=== PATIENT | male | born 1970 | race Caucasian/White ===

== ENCOUNTER 2020-08-05 10:53 | Outpatient (CLI) | payer BC, SELFPAY ==
--- NOTE | ~2020-08-05 | XR_ITS ---
EXAMINATION: XR ribs BI 3V w CXR 2V EXAM DATE: 08/05/2020 11:17 INDICATION: R07.81 - Pleurodynia; chest pain on breathing, lower rib pain. TECHNIQUE: Frontal projection of the upper left ribs, frontal projection of the lower left ribs, obli que projection of the left ribs. Frontal projection of the upper right ribs, frontal projection of t he lower right ribs, oblique projection of the right ribs, frontal chest x-ray(s) for interpretation. Comparison is made to prior examination from 08/07/2015. FINDINGS: There are old right 5th-10th rib fractures identified posterolaterally. There are old left 6th-9th rib fractures identified laterally. There are no acute fractures identified. No confluent con solidation, pneumothorax or pleural effusion suspected. Cardiomediastinal silhouette is normal. Mild thoracic spondylosis. IMPRESSION: Old bilateral rib fractures. No acute findings. Reviewed, dictated and finalized at location A. [employer] PATH[employer]IST
== END 2020-08-05 10:54 | disposition home or self-care (01) ==
PROVIDERS: PCP Family Medicine; Visit Provider Nurse Practitioner Family
DX: R07.81 Pleurodynia (principal); R07.1 Chest pain on breathing
CPT/HCPCS: 71046; 71110

== ENCOUNTER → 2021-10-20 00:23 | Outpatient (CLI) | payer BC, SELFPAY ==
[2021-10-20 11:15] LABS: SARS-CoV-2 RNA PCR Negative
== END ==
PROVIDERS: PCP Family Medicine; Visit Provider Internal Medicine Gastroenterology
DX: Z01.812 Encounter for preprocedural laboratory examination (principal); Z20.822 Contact with and (suspected) exposure to COVID-19
CPT/HCPCS: C9803; U0003; U0005

== ENCOUNTER 2021-10-23 01:12 | Day surgery (SDC) | payer BC, SELFPAY ==
[2021-10-12 14:38] VITALS: BMI 39.9
--- NOTE | 2021-10-23 07:26 | PM.HPGS ---
History of Present Illness History of Present Illness Consent: Risks, benefits, and alternatives have been discussed and questions answered. Patient agrees to proceed with procedure. Chief complaint: positive cologuard Narrative: Minh Yeung is a 50 year old male Recently performed Cologuard test for screening. It was positive. He therefore is referred now for colonoscopy. He has not had any particular symptoms such as blood in stools or change in bowel habits . Review of Systems Review of Systems: All systems reviewed & are unremarkable except as noted in HPI and below PMFSH Past Medical History Medical History Abnormal stool test Biceps muscle tear BMI 39.0-39.9,adult Hematochezia Morbid (severe) obesity due to excess calories Surgical History Surgical History History of coronary artery stent placement History of shoulder surgery Family History Family History Father Family history of premature coronary heart disease Mother Hypertension Family history of diabetes mellitus in first degree relative Sibling Family history of diabetes mellitus in first degree relative Grandparent Family history of coronary artery disease Social History Social History Smoking packs per day: 2 Smoking cigarettes per day: 40.0 Years smoked: 30 Smoking pack-years: 60.00 Tobacco type: cigarettes Second hand tobacco smoke exposure: Yes Alcohol intake: current Drinks per week: 40 Alcohol use details: Beer Substance use: never Substance use type: does not use Living arrangements: alone Additional occupation/education comments: [employer] Gender identity (if verbalized by the patient): Male Meds Home Medications and Allergies Home Medications Medication Instructions Recorded Confirmed Type metformin 1,000 mg tablet 1,000 mg PO BID #180 tablet 08/18/20 10/23/21 Rx losartan 50 mg-hydrochlorothiazide 1 tablet PO DAILY #90 tablet 01/20/21 10/23/21 Rx 12.5 mg tablet umeclidinium 62.5 mcg-vilanterol 1 inh INHALATION Q24H #90 each 02/27/21 10/23/21 Rx 25 mcg/actuation powdr for inhalation metoprolol succinate 50 mg 50 mg PO DAILY #90 tablet 05/26/21 10/23/21 Rx tablet,extended release 24 hr metronidazole 0.75 % topical cream 1 applic TOPICAL QHS #45 g 08/06/21 10/23/21 Rx sildenafil 100 mg tablet 100 mg PO DAILY PRN #8 tablet 08/24/21 10/23/21 Rx alprazolam 0.5 mg PO TID PRN 10/12/21 10/23/21 History aspirin 81 mg PO DAILY 10/12/21 10/23/21 History omeprazole [Prilosec] 20 mg PO DAILY 10/12/21 10/23/21 History rosuvastatin 20 mg tablet 20 mg PO DAILY #90 tablet 10/12/21 10/23/21 Rx Allergies Allergy/AdvReac Type Severity Reaction Status Date / Time Penicillins Allergy Unknown Rash Verified 10/23/21 09:58 Exam Const: General: alert Orientation/consciousness: patient oriented x3 Resp: Auscultation: clear to auscultation bilaterally Cardio: Rhythm: regular rhythm GI: GI Palp: Yes Soft to palpation and No Tenderness to palpation present (GI) Neuro: General: patient oriented x3 Assessment and Plan Assessment and plan (1) Colon cancer screening: Code(s): Z12.11 - Encounter for screening for malignant neoplasm of colon Status: Acute Assessment and Plan: Colonoscopy with possible biopsy or polypectomy or cautery or injection of substances.
[2021-10-23 09:59] VITALS: BP 134/86; PULSE 95; RESP 19; TEMP 36.2; O2SAT 97; BMI 39.2
[2021-10-23] MEDS: LACTATED RINGERS 1,000 ML 150 ML IV CONT (10:01)
[2021-10-23 10:08] LABS: Glucose Point of Care 173 mg/dl (65-105)
--- NOTE | 2021-10-23 10:28 | WPDANESEPPF ---
Anes - Initial Pre Proc Eval Procedure: Operation Date: 10/23/21 11:00 Proposed Procedures p Colonoscopy - Abdelrahman Justice MD Date/Time: 10/23/21 10:28 Surgeon: Abdelrahman Justice MD Pre Op Diagnosis: positive cologuard Patient Data Age: 50 Gender: M Height: 1.91 m Weight: 142.2 kg Last Vital Signs Temp 36.2 C L 10/23/21 09:59 Pulse 95 10/23/21 09:59 Resp 19 10/23/21 09:59 BP 134/86 10/23/21 09:59 Pulse Ox 97 10/23/21 09:59 Allergies Allergy/AdvReac Type Severity Reaction Status Date / Time Penicillins Allergy Unknown Rash Verified 10/23/21 09:58 Home Medications Medication Instructions Recorded Confirmed Type metformin 1,000 mg tablet 1,000 mg PO BID #180 tablet 08/18/20 10/23/21 Rx losartan 50 mg-hydrochlorothiazide 1 tablet PO DAILY #90 tablet 01/20/21 10/23/21 Rx 12.5 mg tablet umeclidinium 62.5 mcg-vilanterol 1 inh INHALATION Q24H #90 each 02/27/21 10/23/21 Rx 25 mcg/actuation powdr for inhalation metoprolol succinate 50 mg 50 mg PO DAILY #90 tablet 05/26/21 10/23/21 Rx tablet,extended release 24 hr metronidazole 0.75 % topical cream 1 applic TOPICAL QHS #45 g 08/06/21 10/23/21 Rx sildenafil 100 mg tablet 100 mg PO DAILY PRN #8 tablet 08/24/21 10/23/21 Rx alprazolam 0.5 mg PO TID PRN 10/12/21 10/23/21 History aspirin 81 mg PO DAILY 10/12/21 10/23/21 History omeprazole [Prilosec] 20 mg PO DAILY 10/12/21 10/23/21 History rosuvastatin 20 mg tablet 20 mg PO DAILY #90 tablet 10/12/21 10/23/21 Rx Laboratory Tests 10/23/21 10:06 POC Capillary Glucose 173 mg/dl H mg/dl (65-105) Patient hx anesthesia problems: none Family hx anesthesia problems: none Results Review: All pre-operative results and documents have been reviewed as part of the pre-operative evaluation. [facility] Past Medical History Medical History Abnormal stool test Biceps muscle tear BMI 39.0-39.9,adult Hematochezia Morbid (severe) obesity due to excess calories Surgical History Surgical History (Updated 10/23/21 @ 10:32 by Hubert Hylton MD) History of coronary artery stent placement History of shoulder surgery Family History Family History Father Family history of premature coronary heart disease Mother Hypertension Family history of diabetes mellitus in first degree relative Sibling Family history of diabetes mellitus in first degree relative Grandparent Family history of coronary artery disease Social History Social History Smoking packs per day: 2 Smoking cigarettes per day: 40.0 Years smoked: 30 Smoking pack-years: 60.00 Tobacco type: cigarettes Second hand tobacco smoke exposure: Yes Alcohol intake: current Drinks per week: 40 Alcohol use details: Beer Substance use: never Substance use type: does not use Living arrangements: alone Additional occupation/education comments: [employer] Gender identity (if verbalized by the patient): Male Anes - Eval Final PreProcedure Day of Procedure 10/23/21 10:28 Patient weight: morbidly obese Heart: regular rate and rhythm Lungs: clear to auscultation Airway: Mallampati scale class II Neurological: alert and oriented Last oral intake: >/= 8 hours ASA classification: III Emergent: no Anesthetic plan: proceed Anesthesia type and monitoring: general GIVS and standard monitoring Results Review: All pre-operative results and documents have been reviewed as part of the pre-operative evaluation. Informed Consent: The patient's anesthetic plan and its attendant risks and benefits were discussed with the patient/family/POA. Questions were solicited and answers provided to the satisfaction of the patient/family/POA.
[2021-10-23 11:54] VITALS: BP 110/74; PULSE 89; RESP 32; O2SAT 93
[2021-10-23 12:04] VITALS: BP 113/70; PULSE 87; RESP 24; O2SAT 96
[2021-10-23 12:14] VITALS: BP 116/72; PULSE 95; RESP 18; O2SAT 97
== END 2021-10-23 12:18 | disposition home or self-care (01) ==
PROVIDERS: PCP Family Medicine; Visit Provider Internal Medicine Gastroenterology
PROC: 0DJD8ZZ Inspection of Lower Intestinal Tract, Via Natural or Artificial Opening Endoscopic (ICD-10-PCS; CPT 45378; principal; 2021-10-23 11:00)
DX: Z12.11 Encounter for screening for malignant neoplasm of colon (principal); D12.8 Benign neoplasm of rectum; K63.5 Polyp of colon; K57.30 Diverticulosis of large intestine without perforation or abscess without bleeding; R19.5 Other fecal abnormalities; F17.210 Nicotine dependence, cigarettes, uncomplicated; Z95.5 Presence of coronary angioplasty implant and graft; Z79.899 Other long term (current) drug therapy
CPT/HCPCS: 45385; 45381; 82948; 88305; J2001; J2704; J7120

== ENCOUNTER 2023-10-31 15:15 | Outpatient (CLI) | payer BC, SELFPAY ==
--- NOTE | ~2023-10-31 | XR_ITS ---
EXAMINATION: XR lumbar spine 2-3V DATE: 10/31/2023 15:34 INDICATION: Other intervertebral disc degeneration, lumbar region. TECHNIQUE: 3 views of lumbar spine were obtained. COMPARISON: None. FINDINGS: There is 12 degrees levoscoliosis of lumbar spine. There is mild chronic anterior wedging o f T12 and L1 vertebral bodies. There are endplate osteophytes at all levels. There is mildly decrease d disc height at T12-L1, L1-L2, L2-L3, and L3-L4 and moderately decreased disc height at L4-L5. There is multilevel facet joint osteoarthritis. IMPRESSION: 1. Moderate lumbar spondylosis. 2. Lumbar levoscoliosis. Reviewed, dictated and finalized at location E.
--- NOTE | ~2023-10-31 | XR_ITS ---
EXAMINATION: XR hip RT 2V w AP pelvis DATE: 10/31/2023 15:34 INDICATION: Right hip pain. TECHNIQUE: An anteroposterior view of the pelvis and 2 views of right hip were obtained. COMPARISON: None. FINDINGS: There is lumbar levoscoliosis and severe spondylosis. No fracture. There is mild osteoarthr itis of the hips. IMPRESSION: 1. Mild osteoarthritis of the hips. Reviewed, dictated and finalized at location E.
== END 2023-10-31 15:16 | disposition home or self-care (01) ==
LOC: ANHIMG 15:15
PROVIDERS: PCP Family Medicine; Visit Provider Nurse Practitioner Family
DX: M51.36 Other intervertebral disc degeneration, lumbar region (principal); M16.11 Unilateral primary osteoarthritis, right hip; M47.896 Other spondylosis, lumbar region
CPT/HCPCS: 72100; 73502

== ENCOUNTER 2023-12-01 09:45 | Outpatient (CLI) | payer BC, SELFPAY ==
--- NOTE | ~2023-12-01 | US_ITS ---
EXAMINATION: US carotid duplex BI DATE: 12/01/2023 10:06 INDICATION: Dizziness and giddiness. TECHNIQUE: Grayscale, color Doppler, and pulsed Doppler images of the cervical carotid arteries were obtained. The degree of vessel stenosis is placed in one of the following categories: normal, <50%, 5 0-69%, >=70% but less than near-occlusion, near-occlusion, or total occlusion. Note that percent sten osis relative to normal distal artery lumen diameter is indirectly measured from velocity measurement s as described by Owen, et al. Radiology 2003; 229:340-346. COMPARISON: None. FINDINGS: RIGHT: The right common carotid artery (CCA) peak systolic velocity (PSV) is 79 cm/s. The right internal car otid artery (ICA) PSV is 181 cm/s. The right ICA end-diastolic velocity (EDV) is 68 cm/s. The right I CA/CCA PSV ratio is 2.3. Grayscale and color Doppler images yield an estimate of >=50% diameter reduc tion from plaque in the ICA. There is antegrade flow in the right vertebral artery. LEFT: The left CCA PSV is 89 cm/s. The left ICA PSV is 101 cm/s. The left ICA EDV is 36 cm/s. The left ICA/ CCA PSV ratio is 1.1. Grayscale and color Doppler images yield an estimate of <50% diameter reduction from plaque in the ICA. There is antegrade flow in the left vertebral artery. IMPRESSION: 1. 50-69% stenosis in the right internal carotid artery. 2. <50% stenosis in the left internal carotid artery. Reviewed, dictated and finalized at location E.
== END 2023-12-01 09:46 ==
PROVIDERS: PCP Family Medicine; Visit Provider Nurse Practitioner Family
DX: R42 Dizziness and giddiness (principal); I65.23 Occlusion and stenosis of bilateral carotid arteries
CPT/HCPCS: 93880

== ENCOUNTER 2024-10-29 09:00 | Outpatient (CLI) | payer BC, SELFPAY ==
--- NOTE | ~2024-10-29 | XR_ITS ---
Cervical Spine: AP, lateral, open-mouth views Clinical History: Pain Findings: The normal lordotic curve is maintained. No fracture or subluxation seen. There is mild deg enerative change at C5-C6. Pre-vertebral soft tissues are unremarkable. Impression: Mild degenerative spondylosis. Reviewed, dictated and finalized at [facility]. Impression: Mild degenerative spondylosis.
--- NOTE | ~2024-10-29 | XR_ITS ---
Left ankle Technique: AP, oblique, and lateral views were obtained. Clinical History: Pain Findings: No acute fracture or dislocation is seen. Probable chronic avulsion fracture fragment at th e tip of the medial malleolus. Osseous alignment is anatomic. Ankle mortise and other visualized join t spaces are preserved. Soft tissues are otherwise unremarkable. Impression: No acute abnormality. Reviewed, dictated and finalized at location . Impression: No acute abnormality.
--- NOTE | ~2024-10-29 | XR_ITS ---
Right ankle Technique: AP, oblique, and lateral views were obtained. Clinical History: Pain Findings: No acute fracture or dislocation is seen. Osseous alignment is anatomic. Ankle mortise and other visualized joint spaces are preserved. There is heterotopic ossification or possibly enchondrom a at the distal tibiofibular syndesmosis region.. Impression: No acute abnormality. Heterotopic ossification or possibly enchondroma at the distal tibiofibular syndesmosis region. Reviewed, dictated and finalized at location . Impression: No acute abnormality. Heterotopic ossification or possibly enchondroma at the distal tibiofibular syn desmosis region.
--- OUTSIDE RECORDS SUMMARY | 2024-10-29 09:34 | XMS_ITS | Clinical Summary ---
Author Organization [facility] Address [address] [place] [address] Phone Care Team Providers Care Demonstrator Sales Name Role Phone Vernon Paula MD Primary Care Provider [phone] Social History Tobacco Use Types Packs/Day Years Used Date Smoking Tobacco: Never Assessed Sex and Gender Information Value Date Recorded Sex Assigned at Not on file Legal Sex Male 12:22 AM CDT Gender Identity Not on file Sexual Orientation Not on file Plan of Treatment Health Maintenance Due Date Last Done Comments Hepatitis C Virus (HCV) Screening 1968 TdaP Immunization 1968 Hepatitis B Immunization (1 of 3 - 19+ 3-dose series) 11/07/1987 Pneumococcal Immunization (5 0+ years) (1 of 2 - PCV) 11/07/1987 Colonoscopy 2013 Colorectal Cancer Screening 2013 Cologuard 2018 Immunochemical Fecal Occult Blood 2018 Zoster Immunization (1 of 2) 2018 PSA Discussion 11/07/2023 Influenza Immunization (#1) 2024 SARS-COV-2 Immunization ( season) 2024 Respiratory Syncytial Virus (RSV) Immunization (Adult) (1 - 1-dose 75+ series) 11/07/2043 Meningococcal Immunization (ACWY) Aged Out No longer eligible based on patient's age to complete this topic Rotavirus Immunization Aged Out No lo nger eligible based on patient's age to complete this topic Insurance [employer] Care Teams Demonstrator Sales Relationship Specialty Start Date End Date Vernon Paula MD [address] [place] [address] PCP - General Family Medicine 01/03/24
--- OUTSIDE RECORDS SUMMARY | 2024-10-29 09:35 | XMS_ITS ---
ADRIANA LewisDEVINE) - 09/27/2024 3:39 PM CDT Baseline prior to heparin initiation Timbo Norton MD LAB BLOOD ORDERABLES Final Resu lt Performing Organization Address City/[facility]/ZIP Co de Phone Number ADRIANA CASTANEDAN) 1 [facility] [place] [address] * Protime-INR (09/27/2024 3:25 PM CDT) PT 11.8 9.7 - 13.0 sec IRENEMICHELLE JOAQUIN (DEVINE) INR 1.09 0.90 - 1.20 ADRIANA JOAQUIN (DEVINE) Comment: Interpretive data Oral anticoagulant therapeutic ranges: Venous thromboembolism prophylaxis or treatment: 2.0-3.0 CARDIOLOGY Standard range: 2.0-3.0 High-intensity range: 2.5-3.5 Refer to indication-specific guidelines for appropriate target ranges for prosthetic heart valve replacement. Current interpretive data was last revised on 2019. Blood 09/27/2024 3:25 PM CDT 09/27/2024 3:27 PM CDT Narrative ADRIANA LewisDEVINE) - 09/27/2024 3:39 PM CDT Baseline prior to heparin initiation Timbo Norton MD LAB BLOOD ORDERABLES Final Resu lt Performing Organization Address [facility] Co de Phone Number ADRIANA LewisDEVINE) 1 [facility] [place] [address] * LEFT HEART CATHETERIZATION WITH CORONARY ANGIOGRAPHY AND WITH AND WITHOUT LEFT VENTRICULOGRAM (09/27/2024 2:18 PM CDT) Anatomical Region Laterality Modality X-Ray Angiograph y 09/27/2024 Narrative 09/28/2024 9:32 AM CDT [facility] Job ID: [id number] [facility] Document ID: [id number] Dictated date/time: [id number] CARDIAC CATHETERIZATION REPORT A 53-year-old, history of coronary artery disease, had stenting of the left anterior descending in about 2004 and then stenting of the mid circumflex in 2014. He was lost for follow-up. He now presents with recurrent chest pain consistent with unstable angina. Cardiac enzymes were negative. He was referred for catheterization. INDICATION FOR PROCEDURE Coronary artery disease with unstable angina PROCEDURES PERFORMED: left heart catheterization, selective coronary angiography, left ventriculography. TECHNICAL SUMMARY After obtaining informed consent, the patient was brought to the cardiac center medical and lab director suite. He was prepped and draped in a sterile fashion. Conscious sedation was administered by the center medical and lab director staff under my supervision. A total of 3 mg of Versed, 100 mcg of fentanyl and 50 mg of Benadryl were given in divided doses. See procedure log for further details. Total sedation time 23 minutes. A 6-Luxembourgish sheath was inserted into the right radial artery. A combination of Angiomax, lidocaine and nitroglycerin was administered intra-arterially. Selective coronary cannulation was performed with standard Emmett catheters. Left ventriculography was performed in the BENTLEY projection using pigtail followed up pullback. At the end of procedure, the arterial sheath was removed and hemostasis achieved by applying TR band to the right wrist. FINDINGS: HEMODYNAMICS: LV pressure was 120/15, ascending aortic pressure 120/70. LEFT VENTRICULOGRAPHY: This showed normal systolic wall motion, estimated ejection fraction 55% to 60%. RIGHT CORONARY ARTERY: The right coronary artery is a dominant vessel with 40% mid stenosis followed by eccentric ulcerated 80% mid stenosis. The Distal vessel gives a very large posterior descending followed by small to medium-sized posterolateral branches. The distal branches of the right coronary artery were angiographically normal. LEFT CORONARY ARTERY: The left main coronary artery had mild calcifications. The left anterior descending had 80% ostial stenosis followed by area of previously implanted stent which was patent with mild in-stent restenosis. This was followed by another area of 95% mid stenosis. The rest of the left anterior descending was relatively disease-free and of good caliber. The circumflex had 60% stenosis at the entrance of the previously implanted stent in the mid segment followed by another focal 80% distal stenosis before takeoff of the large posterolateral branch. The 1st obtuse marginal was a large vessel, had 80% ostial stenosis with calcifications. IMPRESSION 1. Severe ho-chunk 3 vessel coronary artery disease involving disease progression in the left anterior descending, circumflex and the right coronary artery compared to prior angiography in 2015. 2. Normal left ventricular systolic function. 3. Normal left ventricular diastolic pressure. CARE PLAN Given presence of multivessel disease including ostial LAD location and the presence of diabetes, the patient will be referred for surgical revascularization. Timbo Norton MD Job ID/Internal Job ID: [id number] us Brien Flowers MD CV CARDIAC CATH PROCEDURES Fi nal Result * POCT glucose (09/27/2024 11:46 AM CDT) Glucose, POC 199 70 - 199 mg/dL Blood 09/27/2024 11:4 6 AM CDT 09/27/2024 11:46 AM CDT us Georgina Meyer MD LAB POCT ORDERABLES - DEVICE Fi nal Result ADRIANA [facility] [address] Department of Laboratories [place] [id number] * TRANSTHORACIC ECHO (TTE) COMPLETE W DOPPLER/CF WO CONTRAST (09/27/2024 10:44 AM CDT) Anatomical Region Laterality Modality Ultrasound 09/27/2024 9:16 AM CDT Narrative 09/27/2024 12:00 PM CDT [address] [address] Echocardiogram Report Patient Name: ANTELMO TAY : 1970 Study Date: 09/27/2024 9:16:42 AM Gender: M 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 INDICATIONS: Chest Pain. MEASUREMENTS: 2D/MM Value Range Doppler Value Range EF Teich MM 53.0 % [ 52.0 - 72.0 ] MAMADOU Vmax 3.77 cm2 EF Mod BP 55 % [ 52 - 72 ] AV Mean PG 4 mmHg LVIDd MM 5.20 cm [ 4.20 - 5.80 ] AV Peak Alex 1.34 m/s [ 1.00 - 1.70 ] LVIDs MM 3.80 cm [ 2.50 - 4.00 ] AV VTI 27.70 cm LVPWd MM 1.40 cm [ 0.60 - 1.00 ] LVOT Diam 2.32 cm IVSd MM 1.20 cm [ 0.60 - 1.00 ] LVOT Peak Alex 1.19 m/s [ 0.70 - 1.10 ] LA Dimension MM 4.00 cm [ 3.00 - 4.00 ] LVOT VTI 24.37 cm AoR Diam MM 3.17 cm [ 3.10 - 3.70 ] MV E Peak Alex 0.59 m/s [ 0.60 - 1.30 ] ACS MM 2.06 cm [ 1.50 - 2.60 ] MV A Peak Alex 0.88 m/s [ 1.00 - 1.20 ] MV Mean PG 2 mmHg MV PHT 52 msec [ 20 - 100 ] MVA 4.20 MV Decel Time 233 msec [ 104 - 258 ] PV Peak Alex 1.03 m/s [ 0.40 - 0.80 ] TR Peak Alex 1.28 m/s [ 1.00 - 2.80 ] TR Peak PG 7 mmHg RVSP 10.00 mmHg [ 10.00 - 36.00 ] PA Pressure 10.00 mmHg [ 10.00 - 36.00 ] 2D/MM Value Range Doppler Value Range - FINDINGS: Atrial Septum: Normal atrial septum. Left Ventricle: Normal left ventricular systolic function with no focal wall motion abnormalities. Normal left ventricular size. Mild concentric left ventricular hypertrophy. Impaired diastolic relaxation Grade I. Ejection fraction is measured at 55 %. Left Atrium: The left atrium is normal in size. Right Ventricle: Normal right ventricular size. Normal right ventricular systolic function. Right Atrium: The right atrium is normal in size. Aortic Valve: Normal structure of the aortic valve. No evidence of hemodynamically significant aortic stenosis by Doppler. Mitral Valve: Normal structure of the mitral valve. No mitral valve regurgitation is seen. Pulmonic Valve: Normal structure of the pulmonic valve. No evidence of pulmonic regurgitation. Tricuspid Valve: Normal structure of the tricuspid valve. Normal right ventricular systolic pressure. Trivial regurgitation in the tricuspid valve. Pericardium: Normal pericardium with no significant pericardial effusion. There is an anterior echo free space consistent with epicardial fat pad. Aorta: Normal aortic root. IVC: Normal size and normal respiratory collapse consistent with normal right atrial pressure (<5 mmHg). Pulmonary Artery: Pulmonary artery not well visualized. CONCLUSIONS: Normal left ventricular systolic function with no focal wall motion abnormalities. Normal left ventricular size. Mild concentric left ventricular hypertrophy. Impaired diastolic relaxation Grade I. Ejection fraction is measured at 55-65%. Normal right ventricular size. Normal right ventricular systolic function. Normal structure of the mitral valve. No mitral valve regurgitation is seen. Normal structure of the aortic valve. No evidence of hemodynamically significant aortic stenosis by Doppler. Normal structure of the tricuspid valve. Normal right ventricular systolic pressure. Trivial regurgitation in the tricuspid valve. Normal pericardium with no significant pericardial effusion. There is an anterior echo free space consistent with epicardial fat pad. 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 INDICATIONS: Chest Pain. MEASUREMENTS: 2D/MM Value Range Doppler ValueRange EF Teich MM 53.0 % [ 52.0 - 72.0 ] MAMADOU Vmax 3.77cm2 EF Mod BP 55 % [ 52 - 72 ] AV Mean PG 4 mmHg LVIDd MM 5.20 cm [ 4.20 - 5.80 ] AV Peak Alex 1.34 m/s[ 1.00 - 1.70 ] LVIDs MM 3.80 cm [ 2.50 - 4.00 ] AV VTI 27.70cm LVPWd MM 1.40 cm [ 0.60 - 1.00 ] LVOT Diam 2.32cm IVSd MM 1.20 cm [ 0.60 - 1.00 ] LVOT Peak Alex 1.19 m/s[ 0.70 - 1.10 ] LA Dimension MM 4.00 cm [ 3.00 - 4.00 ] LVOT VTI 24.37cm AoR Diam MM 3.17 cm [ 3.10 - 3.70 ] MV E Peak Alex 0.59 m/s[ 0.60 - 1.30 ] ACS MM 2.06 cm [ 1.50 - 2.60 ] MV A Peak Alex 0.88 m/s[ 1.00 - 1.20 ] MV Mean PG 2 mmHg MV PHT 52 msec [ 20 - 100 ] MVA 4.20 MV Decel Time 233 msec [ 104 - 258 ] PV Peak Alex 1.03 m/s [ 0.40 - 0.80 ] TR Peak Laex 1.28 m/s [ 1.00 - 2.80 ] TR Peak PG 7 mmHg RVSP 10.00 mmHg [ 10.00 - 36.00 ] PA Pressure 10.00 mmHg [ 10.00 - 36.00 ] 2D/MM Value Range Doppler ValueRange - FINDINGS: Atrial Septum: Normal atrial septum. Left Ventricle: Normal left ventricular systolic function with no focal wall motionabnormalities. Normal left ventricular size. Mild concentric left ventricular hypertrophy.Impaired diastolic relaxation Grade I. Ejection fraction is measured at 55 %. Left Atrium: The left atrium is normal in size. Right Ventricle: Normal right ventricular size. Normal right ventricular systolicfunction. Right Atrium: The right atrium is normal in size. Aortic Valve: Normal structure of the aortic valve. No evidence of hemodynamicallysignificant aortic stenosis by Doppler. Mitral Valve: Normal structure of the mitral valve. No mitral valve regurgitation isseen. Pulmonic Valve: Normal structure of the pulmonic valve. No evidence of pulmonicregurgitation. Tricuspid Valve: Normal structure of the tricuspid valve. Normal right ventricular systolicpressure. Trivial regurgitation in the tricuspid valve. Pericardium: Normal pericardium with no significant pericardial effusion. There is ananterior echo free space consistent with epicardial fat pad. Aorta: Normal aortic root. IVC: Normal size and normal respiratory collapse consistent with normal rightatrial pressure (<5 mmHg). Pulmonary Artery: Pulmonary artery not well visualized. CONCLUSIONS: Normal left ventricular systolic function with no focal wall motionabnormalities. Normal left ventricular size. Mild concentric left ventricular hypertrophy.Impaired diastolic relaxation Grade I. Ejection fraction is measured at 55-65%. Normal right ventricular size. Normal right ventricular systolicfunction. Normal structure of the mitral valve. No mitral valve regurgitation isseen. Normal structure of the aortic valve. No evidence of hemodynamicallysignificant aortic stenosis by Doppler. Normal structure of the tricuspid valve. Normal right ventricular systolicpressure. Trivial regurgitation in the tricuspid valve. Normal pericardium with no significant pericardial effusion. There is ananterior echo free space consistent with epicardial fat pad. Electronically Signed By: Tracy Morfin MD 09/27/2024 12:00:09 PM CDT Georgina Meyer MD CV ECHO PROCEDURES Final Result * POCT glucose (09/27/2024 8:11 AM CDT) Glucose, POC 186 70 - 199 mg/dL Blood 09/27/2024 8:11 AM CDT 09/27/2024 8:11 AM CDT Georgina Meyer MD LAB POCT ORDERABLES - DEVICE Fi nal Result Performing Organization Address [facility]/ZIP Co de Phone Number ADRIANA JOAQUIN (DEVINE) 1 [facility] Department [place] [address] * eGFR (09/27/2024 4:09 AM CDT) eGFR >90 >=60 mL/min/1. 73 m2 Comment: Interpretive Data Reference Interval Normal >/= 90 mL/min/1.73m2 Mildly decreased* 60 - 89 mL/min/1.73m2 Mildly to moderately decreased 45 - 59 mL/min/1.73m2 Moderately to severely decreased 30 - 44 mL/min/1.73m2 Severely decreased 15 - 29 mL/min/1.73m2 Kidney Failure < 15 mL/min/1.73m2 *Relative to young adult level Estimated glomerular filtration rate is determined by the 2020 CKD-EPI equation recommended by the National Kidney Foundation (A Unifying Approach to GFR Estimation: Recommendations of the NKF-ASK Task Force on Reassessing the Inclusion of Race in Diagnosing Kidney Disease, JASN 2020). The CKD-EPI equation should not be used for patients with unstable renal function and has not been validated in children and those over 70. Current interpretive data was last reviewed 2021. Blood 09/27/2024 4:09 AM CDT 09/27/2024 4:17 AM CDT us Georgina Meyer MD LAB BLOOD ORDERABLES Final Resu lt ADRIANA JOAQUIN (DEVINE) 1 [facility] Department [place] [address] * Differential, auto (09/27/2024 4:09 AM CDT) Neutrophil abs 4.8 1.5 - 6.5 K/cumm Imm gran abs 0.1 0.0 - 0.1 K/cumm [facility] (RT[facility]) Lymphocyte abs 1.7 0.8 - 3.3 K/cumm [facility] (DEVINE) Monocyte abs 0.5 0.2 - 0.8 K/cumm [facility] (DEVINE) Eosinophil abs 0.1 0.0 - 0.5 K/cumm [facility] ([place]UTH[place]) Basophil abs 0.1 0.0 - 0.1 K/cumm [facility] ([place]) Neutrophil pct 65.9 % [facility] (RUTHANN) Comment: Interpretive Data Percent cell count reference ranges are not reported, since discordance with absolute values may lead to misinterpretation of CBC data. Current Interpretive Data was last revised on 2017. Imm gran pct 0.8 % [facility] ([place]ANN) Comment: Interpretive Data Percent cell count reference ranges are not reported, since discordance with absolute values may lead to misinterpretation of CBC data. Current Interpretive Data was last revised on 2017. Lymphocyte pct 23.7 % [facility] (RUTHANN) Comment: Interpretive Data Percent cell count reference ranges are not reported, since discordance with absolute values may lead to misinterpretation of CBC data. Current Interpretive Data was last revised on 2017. Monocyte pct 7.0 % [facility] ([place]UTHANN) Comment: Interpretive Data Percent cell count reference ranges are not reported, since discordance with absolute values may lead to misinterpretation of CBC data. Current Interpretive Data was last revised on 2017. Eosinophil pct 1.9 % [facility] ([place]ANN) Comment: Interpretive Data Percent cell count reference ranges are not reported, since discordance with absolute values may lead to misinterpretation of CBC data. Current Interpretive Data was last revised on 2017. Basophil pct 0.7 % [facility] (RUTHANN) Comment: Interpretive Data Percent cell count reference ranges are not reported, since discordance with absolute values may lead to misinterpretation of CBC data. Current Interpretive Data was last revised on 2017. Blood 09/27/2024 4:09 AM CDT 09/27/2024 4:17 AM CDT us Georgina Meyer MD LAB BLOOD ORDERABLES Final Resu lt ADRIANA JOAQUIN (DEVINE) 1 [facility] Department [place] [address] * (ABNORMAL) CBC with auto differential (09/27/2024 4:09 AM CDT) WBC 7.3 3.8 - 9.9 K/cumm Hgb 15.2 13.0 - 17.5 g/dL [facility] ([place]) Hct 45.8 38.9 - 50.3 % [facility] ([place]) Plt 111(L) 150 - 400 K/cumm [facility] ([place]) MPV 8.6(L) 9.1 - 12.3 fL [facility] ([place]) RBC 4.62 4.30 - 5.80 M/cumm [facility] ([place]) MCV 99.1(H) 81.3 - 96.4 fL [facility] ([place]) MCH 32.9 27.1 - 33.3 pg [facility] ([place]) MCHC 33.2 32.3 - 35.7 g/dL [facility] ([place]) RDW CV 14.0 11.1 - 14.9 % [facility] ([place]) RDW SD 50.9(H) 35.7 - 48.1 fL [facility] ([place]) NRBC abs 0.00 0.00 - 0.01 K/cumm [facility] ([place]) Blood 09/27/2024 4:09 AM CDT 09/27/2024 4:17 AM CDT us Georgina Meyer MD LAB BLOOD ORDERABLES Final Resu lt Performing Organization Address City/[facility] Co de Phone Number ADRIANA JOAQUIN (RUTHANN) 1 [facility] [place] [address] * Magnesium (09/27/2024 4:09 AM CDT) Magnesium 1.8 1.4 - 2.5 mg/dL Blood 09/27/2024 4:09 AM CDT 09/27/2024 4:17 AM CDT us Georgina Meyer MD LAB BLOOD ORDERABLES Final Resu lt ADRIANA [facility] ([place]UTHANN) [address] [place] [address] * (ABNORMAL) Hemoglobin A1c (09/27/2024 4:09 AM CDT) Hgb A1C 7.7(H) 4.0 - 5.6 % Estimated Average Glucose 174 mg/dL ADRIANA JOAQUIN (RUTHANN) Comment: The ADA recommends reporting an estimated Average Glucose (eAG) with all Hemoglobin A1c results using the equation derived from a study of 507 normal and diabetic adults. Minority populations were underrepresented and children were not included. (Diabetes Care 31:0096-2318, 2008). The eAG is not equivalent to a fasting glucose. Blood 09/27/2024 4:09 AM CDT 09/27/2024 4:18 AM CDT us Georgina Meyer MD LAB BLOOD ORDERABLES Final Resu lt ADRIANA JOAQUIN (DEVINE) [address] [facility] [place] [address] * (ABNORMAL) Lipid panel (09/27/2024 4:09 AM CDT) Cholesterol 123 30 - 199 mg/dL Comment: Interpretive Data Ages < or = 19 years Acceptable: <170 mg/dL Borderline high: 170-199 mg/dL High: >or= 200 mg/dL Ages > or = 20 years Desirable: <200 mg/dL Borderline high: 200-239 mg/dL High: >or= 240 mg/dL Literature References: 1. Expert Panel on Integrated Guidelines for Cardiovascular Health and Risk Reduction in Children and Adolescents. Pediatrics 2011;128:S213 2. NCEP Expert Panel. Circulation 2004;110:227 Current Interpretive Data was last revised on 2018. Triglycerides 276(H) <=149 mg/dL ADRIANA LUNA) Comment: Interpretive Data Ages < or = 9 years Acceptable: <75 mg/dL Borderline high: 75-99 mg/dL High: >or= 100 mg/dL Ages 10 to 20 years Acceptable: <90 mg/dL Borderline high: 90-129 mg/dL High: >or= 130 mg/dL Ages > or = 20 years Desirable: <150 mg/dL Borderline high: 150-199 mg/dL High: 200-499 mg/dL Very high: >or= 499 mg/dL Literature References: 1. Expert Panel on Integrated Guidelines for Cardiovascular Health and Risk Reduction in Children and Adolescents. Pediatrics 2011;128:S213 2. NCEP Expert Panel. Circulation 2004;110:227 Current Interpretive Data was last revised on 2018. HDL 32(L) >=40 mg/dL ADRIANA JOAQUIN (RUTHANN) Comment: Interpretive Data Ages < or = 19 years Acceptable: >45 mg/dL Borderline low: 40-45 mg/dL Low: <40 mg/dL Ages > or = 20 years Desirable: >or= 60 mg/dL Low: <40 mg/dL Literature References: 1. Expert Panel on Integrated Guidelines for Cardiovascular Health and Risk Reduction in Children and Adolescents. Pediatrics 2011;128:S213 2. NCEP Expert Panel. Circulation 2004;110:227 Current Interpretive Data was last revised on 2018. LDL, calculated 48 <=129 mg/dL ADRIANA JOAQUIN (RUTHANN) Comment: Interpretive Data Ages < or = 19 years Acceptable: <110 mg/dL Borderline high: 110-129 mg/dL High: >or= 130 mg/dL Ages > or = 20 years Optimal: <100 mg/dL Near optimal: 100-129 mg/dL Borderline high: 130-159 mg/dL High: >160 mg/dL Calculated using the Alberto LDL-C estimating equation. This equation was implemented on 2024. Prior to this date LDL-C was estimated using the Friedewald equation. Literature References: 1. Expert Panel on Integrated Guidelines for Cardiovascular Health and Risk Reduction in Children and Adolescents. Pediatrics 2011;128:S213 2. NCEP Expert Panel. Circulation 2004;110:227 3. Alberto Barnard et al. LNADEN Cardiol. 2020 November 15;5(5):540-548. doi: 10.1001/jamacardio.2020.0013 Current Interpretive Data was last revised on 2024. Non-HDL Cholesterol 91 mg/dL ADRIANA JOAQUIN (RUTHANN) Comment: Interpretive Data Ages < or = 19 years Acceptable: <120 mg/dL Borderline high: 120-144 mg/dL High: >145 mg/dL Ages > or = 20 years When triglycerides are >200 mg/dL, Non-HDL cholesterol is a secondary target of therapy with treatment goals that are 30 mg/dL greater than the LDL cholesterol target. Literature References: 1. Expert Panel on Integrated Guidelines for Cardiovascular Health and Risk Reduction in Children and Adolescents. Pediatrics 2011;128:S213 2. NCEP Expert Panel. Circulation 2004;110:227 Current Interpretive Data was last revised on 2018. Chol/HDL ratio 4 [facility] ([place]) Blood 09/27/2024 4:09 AM CDT 09/27/2024 4:17 AM CDT us Georgina Meyer MD LAB BLOOD ORDERABLES Final Resu lt [facility] (RUTHANN) 1 [facility] Department [place] [address] * (ABNORMAL) Basic metabolic panel (09/27/2024 4:09 AM CDT) Sodium 136 135 - 145 mmol/L Potassium, pl 4.0 3.3 - 4.9 mmol/L [facility] ([place]) Chloride 98 97 - 110 mmol/L [facility] ([place]) CO2 25 22 - 32 mmol/L [facility] ([place]) Anion gap 14 2 - 15 mmol/L [facility] ([place]) BUN 18 6 - 25 mg/dL [facility] Creatinine 0.69(L) 0.80 - 1.30 mg/dL [facility] ([place]) Glucose 188 70 - 199 mg/dL [facility] Comment: Interpretive Data Fasting glucose >/= 126 mg/dl is diagnostic for diabetes. Fasting is defined as no caloric intake for at least 8 hours. Fasting glucose between 100 mg/dl to 125 mg/dl is diagnostic of prediabetes. In a patient with classic symptoms of hyperglycemia or hyperglycemic crisis, a random glucose >/= 200 mg/dl is diagnostic for diabetes. In the absence of unequivocal hyperglycemia, results should be confirmed by repeat testing. The classification and Diagnosis of Diabetes Diabetes Care 2021; 46: S19-S40. Current interpretive data was last revised 2022. Calcium 9.4 8.5 - 10.3 mg/dL ADRIANA JOAQUIN (DEVINE) Blood 09/27/2024 4:09 AM CDT 09/27/2024 4:17 AM CDT Georgina Meyer MD LAB BLOOD ORDERABLES Final Resu lt Performing Organization Address [facility] Co de Phone Number ADRIANA JOAQUIN (DEVINE) [address] [facility] [employer] [place] [address] * (ABNORMAL) POCT glucose (09/27/2024 2:56 AM CDT) Glucose, POC 203(H) 70 - 199 mg/dL Blood 09/27/2024 2:56 AM CDT 09/27/2024 2:56 AM CDT Georgina Meyer MD LAB POCT ORDERABLES - DEVICE Fi nal Result Performing Organization Address [facility] Co de Phone Number ADRIANA JOAQUIN (DEVINE) 1 [facility] [place] [address] * ECG 12 lead (09/26/2024 9:34 PM CDT) 09/26/2024 9:34 PM CDT Narrative [facility] - 09/27/2024 1:58 PM CDT Vent Rate: 79 bpm RR Interval: 757 msec [place] Interval: 145 msec QRS Duration: 114 msec QT Interval: 381 msec QTC Interval: 415 msec P-R-T [place]: 55 - 71 - 67 degrees IMPRESSION: SINUS RHYTHM MODERATE INTRAVENTRICULAR CONDUCTION DELAY [110+ ms QRS DURATION] BORDERLINE ECG NO CHANGE FROM PREVIOUS TRACING NOTED Electronically Signed By: Timbo Norton MD Tyrese Chatman MD ECG ORDERABLES Final Result Performing Organization Address [facility] Co de Phone Number [facility] [employer] [facility] * (ABNORMAL) POCT glucose (09/26/2024 8:45 PM CDT) Glucose, POC 244(H) 70 - 199 mg/dL Blood 09/26/2024 8:45 PM CDT 09/26/2024 8:45 PM CDT Georgina Meyer MD LAB POCT ORDERABLES - DEVICE Fi nal Result Performing Organization Address [facility] Co de Phone Number ADRIANA JOAQUIN (DEVINE) 1 [facility] [place] [address] * Troponin T high-sensitivity 6-hour (09/26/2024 5:09 PM CDT) Trop T hs 15 <=22 ng/L Comment: Interpretive Data For further hscTnT resources including the diagnostic algorithm and an aid in interpretation, copy and paste this link: https://nrl.testcatalog.org/show/hsTrop Current Interpretive Data last revised 2020. Trop T hs delta See Comment ng/L CE RNSAURABH JOAQUIN (DEVINE) Comment:Inappropriate collec tion time to report a delta. Trop T hs pct delta See Comment % CERMICHELLE JOAQUIN (DEVINE) Comment:Inappropriate collec tion time to report a delta. Trop T hs interp See Comment C ABI JOAQUIN (DEVINE) Comment:Inappropriate collec tion time to report a delta. Blood 09/26/2024 5:09 PM CDT 09/26/2024 5:27 PM CDT Janay Barahona MD LAB BLOOD ORDERABLES Ashia l Result Performing Organization Address City/[facility]/ZIP Co de Phone Number ADRIANA JOAQUIN (DEVINE) 1 [facility] [place] [address] * POCT glucose (09/26/2024 5:05 PM CDT) Glucose, POC 161 70 - 199 mg/dL Blood 09/26/2024 5:05 PM CDT 09/26/2024 5:05 PM CDT Georgina Meyer MD LAB POCT ORDERABLES - DEVICE Fi nal Result ADRIANA [facility] DEVINE 1 [facility] Department [place] [address] * CT Chest PE (CTA) Abdomen Pelvis W Contrast (09/26/2024 12:44 PM CDT) Anatomical Region Laterality Modality Body N/A Computed Tomogra phy 09/26/2024 1:07 PM CDT Narrative 09/26/2024 1:23 PM CDT EXAM DESCRIPTION: CT CHEST PE (CTA) ABDOMEN PELVIS W CONTRAST REASON FOR STUDY: xray finding, cp Chest pain that radiates to L side of neck and L arm today, hx of HTN, smoker No current abdominal complaints TECHNIQUE: CT angiogram of the chest with routine abdomen and pelvis performed with intravenous and without oral contrast using helical scanning technique with dynamic intravenous contrast injection. Reconstructed coronal and sagittal MPR images reviewed. All images stored on PACS. 3D MIP images of the chest rendered on scanning unit and reviewed at time of interpretation. Automated exposure control was used as a dose optimization technique for this examination. CONTRAST TYPE/DOSE: 100mL of IOVERSOL 350 MG IODINE/ML INTRAVENOUS SYRINGE injected via intravenous COMPARISON: 10/04/2024 chest radiograph, 06/23/2016 CT chest. FINDINGS: CHEST CHEST VASCULATURE: No acute pulmonary thromboembolism. No acute aortic abnormality. LUNGS: Central airways are patent. No dense consolidations. Subtle atelectatic changes posteriorly. No consolidation to correspond with chest radiograph abnormality. Adjacent pleural thickening is identified and is asymmetric anterior to posterior multiple healed united and ununited fractures. PLEURA: No effusion. No pneumothorax. MEDIASTINUM/SONIA: Nonenlarged lymph nodes retrocaval pretracheal space, AP window, subcarinal space. Subtle soft tissue densities in the hilar regions likely postinflammatory. HEART: Heart size is moderately enlarged. No pericardial effusion. Coronary arterial calcification. AXILLA: No adenopathy. CHEST WALL: No masses. No subcutaneous air. HARDWARE/LINES/TUBES: None. MUSCULOSKELETAL CHEST: No significant abnormality. ABDOMEN/PELVIS LIVER: Normal size. No identified cystic or solid masses. GALLBLADDER: Normally distended BILE DUCTS: No intrahepatic or extrahepatic ductal dilatation. SPLEEN: Normal size. No focal lesions. PANCREAS: No identified cystic or solid masses. No significant calcifications. No adjacent inflammation or peripancreatic fluid collections. Pancreatic duct not dilated. ADRENALS: Right adrenal nodule is unchanged from 2016 suggesting benign process. KIDNEYS/URINARY TRACT: No identified significant cystic or solid masses. No visualized stones. No hydronephrosis or hydroureter. Symmetric enhancement. Urinary bladder is unremarkable. GI: No dilated bowel loops. Stomach is decompressed limiting evaluation. A subtle suggestion of wall thickening through the body. Slightly more pronounced than prior exam. Please correlate clinically for gastritis or infiltrative change. Normal appendix. No significant diverticular disease. PERITONEUM: No ascites or free air. RETROPERITONEUM: No mass or adenopathy. REPRODUCTIVE: No significant abnormality. VASCULATURE ABDOMEN: No abdominal aortic aneurysm. MUSCULOSKELETAL ABDOMEN PELVIS: No acute finding. OTHER: No significant abnormality. IMPRESSION: No evidence of pulmonary embolus or acute aortic abnormality. Healed and healing rib fractures with the adjacent pleural thickening on the right may correspond with chest radiograph abnormality. Right adrenal nodule unchanged from 2016 suggesting a benign process. Subtle suggestion of gastric wall thickening may be related to poor distension though infiltrative change not excluded. THIS IS AN ELECTRONICALLY VERIFIED FINAL REPORT 09/26/2024 1:23 PM - Electronically signed by Brien Hood M.D. RB: OKSANA Report ID: [id number] Reading Location: [place] [address] Procedure Note Brien Hood MD - 09/26/2024 EXAM DESCRIPTION: CT CHEST PE (CTA) ABDOMEN PELVIS W CONTRAST REASON FOR STUDY: xray finding, cp Chest pain that radiates to L side of neck and L arm today, hx of HTN,smoker No current abdominal complaints TECHNIQUE: CT angiogram of the chest with routine abdomen and pelvisperformed with intravenous and without oral contrast using helical scanningtechnique with dynamic intravenous contrast injection. Reconstructed coronal and sagittal MPR images reviewed. All images stored on PACS. 3D MIP images ofthe chest rendered on scanning unit and reviewed at time of interpretation. Automated exposure control was used as a dose optimization technique forthis examination. CONTRAST TYPE/DOSE: 100mL of IOVERSOL 350 MG IODINE/ML INTRAVENOUS SYRINGE injected via intravenous COMPARISON: 10/04/2024 chest radiograph, 06/23/2016 CT chest. FINDINGS: CHEST CHEST VASCULATURE: No acute pulmonary thromboembolism. No acute aortic abnormality. LUNGS: Central airways are patent. No dense consolidations. Subtle atelectatic changes posteriorly. No consolidation to correspond with chest radiograph abnormality.Adjacent pleural thickening is identified and is asymmetric anterior to posterior multiple healed united and ununited fractures. PLEURA: No effusion. No pneumothorax. MEDIASTINUM/SONIA: Nonenlarged lymph nodes retrocaval pretracheal space,AP window, subcarinal space. Subtle soft tissue densities in the hilarregions likely postinflammatory. HEART: Heart size is moderately enlarged. No pericardial effusion.Coronary arterial calcification. AXILLA: No adenopathy. CHEST WALL: No masses. No subcutaneous air. HARDWARE/LINES/TUBES: None. MUSCULOSKELETAL CHEST: No significant abnormality. ABDOMEN/PELVIS LIVER: Normal size. No identified cystic or solid masses. GALLBLADDER: Normally distended BILE DUCTS: No intrahepatic or extrahepatic ductal dilatation. SPLEEN: Normal size. No focal lesions. PANCREAS: No identified cystic or solid masses. No significant calcifications. No adjacent inflammation or peripancreatic fluidcollections. Pancreatic duct not dilated. ADRENALS: Right adrenal nodule is unchanged from 2016 suggesting benign process. KIDNEYS/URINARY TRACT: No identified significant cystic or solid masses.No visualized stones. No hydronephrosis or hydroureter. Symmetricenhancement. Urinary bladder is unremarkable. GI: No dilated bowel loops. Stomach is decompressed limiting evaluation.A subtle suggestion of wall thickening through the body. Slightly more pronounced than prior exam. Please correlate clinically for gastritis or infiltrative change. Normal appendix. No significant diverticulardisease. PERITONEUM: No ascites or free air. RETROPERITONEUM: No mass or adenopathy. REPRODUCTIVE: No significant abnormality. VASCULATURE ABDOMEN: No abdominal aortic aneurysm. MUSCULOSKELETAL ABDOMEN PELVIS: No acute finding. OTHER: No significant abnormality. IMPRESSION: No evidence of pulmonary embolus or acute aortic abnormality. Healed and healing rib fractures with the adjacent pleural thickening onthe right may correspond with chest radiograph abnormality. Right adrenal nodule unchanged from 2016 suggesting a benign process. Subtle suggestion of gastric wall thickening may be related to poor distension though infiltrative change not excluded. THIS IS AN ELECTRONICALLY VERIFIED FINAL REPORT 09/26/2024 1:23 PM - Electronically signed by Brien Hood M.D. RB: RB Report ID: [id number] Reading Location: [id number] Janay Barahona MD IMG CT PROCEDURES Final R esult * Troponin T high-sensitivity 2-hour (09/26/2024 12:11 PM CDT) Trop T hs 12 <=22 ng/L Comment: Interpretive Data For further hscTnT resources including the diagnostic algorithm and an aid in interpretation, copy and paste this link: https://nrl.testcatalog.org/show/hsTrop Current Interpretive Data last revised 2020. Trop T hs delta 1 ng/L [facility] (DEV[place]) Trop T hs interp Insignificant [facility] (DEV[place]) Blood 09/26/2024 12:1 1 PM CDT 09/26/2024 12:16 PM CDT Janay Barahona MD LAB BLOOD ORDERABLES Ashia l Result ADRIANA [facility] (DEVINE) 1 [facility] [place] [address] * Magnesium (09/26/2024 12:11 PM CDT) Pathologist [facility] Magnesium 1.9 1.4 - 2.5 mg/dL Blood 09/26/2024 12:1 1 PM CDT 09/26/2024 12:16 PM CDT Janay Barahona MD LAB BLOOD ORDERABLES Ashia l Result ADRIANA JOAQUIN (DEVINE) 1 [facility] [employer] [address] * XR Chest 1 Vw Portable (if patient condition/safety warrant portable) (09/26/2024 9:51 AM CDT) Anatomical Region Laterality Modality Body, Chest N/A Computed Radiogr aphy 09/26/2024 10:1 6 AM CDT Narrative 09/26/2024 10:22 AM CDT EXAM DESCRIPTION: XR CHEST 1 VIEW REASON FOR STUDY: Chest pain for 48 hours. TECHNIQUE: Frontal radiographic view of the chest COMPARISON: Chest radiograph 06/16/2016, CT chest 06/23/2016 FINDINGS: LUNGS/PLEURAE: Subtle patchy opacity in the right infrahilar region is new from 2016. No large pleural effusion. There is no pneumothorax. HEART/MEDIASTINUM: Heart size is normal. Normal mediastinal and hilar contours. HARDWARE/LINES/TUBES: None. BONES: Multiple old right rib fractures are grossly similar. IMPRESSION: Subtle patchy opacity in the right infrahilar region is new from 2015 and may represent pneumonia or atelectasis/scarring. Correlation with symptoms recommended. THIS IS AN ELECTRONICALLY VERIFIED FINAL REPORT 09/26/2024 10:22 AM - Electronically signed by Chele Osorio M.D. LB: HILDA Report ID: [id number] Reading Location: [place] [address] Procedure Note Chele Osorio MD - 09/26/2024 EXAM DESCRIPTION: XR CHEST 1 VIEW REASON FOR STUDY: Chest pain for 48 hours. TECHNIQUE: Frontal radiographic view of the chest COMPARISON: Chest radiograph 06/16/2016, CT chest 06/23/2016 FINDINGS: LUNGS/PLEURAE: Subtle patchy opacity in the right infrahilar region isnew from 2016. No large pleural effusion. There is no pneumothorax. HEART/MEDIASTINUM: Heart size is normal. Normal mediastinal and hilar contours. HARDWARE/LINES/TUBES: None. BONES: Multiple old right rib fractures are grossly similar. IMPRESSION: Subtle patchy opacity in the right infrahilar region is new from 2016 andmay represent pneumonia or atelectasis/scarring. Correlation with symptoms recommended. THIS IS AN ELECTRONICALLY VERIFIED FINAL REPORT 09/26/2024 10:22 AM - Electronically signed by Chele Osorio M.D. LB: HILDA Report ID: [id number] Reading Location: [id number] Janay Barahona MD IMG XR PROCEDURES Final R esult * ECG 12 lead (09/26/2024 9:45 AM CDT) 09/26/2024 9:45 AM CDT Narrative [facility] - 09/26/2024 10:32 AM CDT Vent Rate: 69 bpm RR Interval: 864 msec OH Interval: 151 msec QRS Duration: 111 msec QT Interval: 379 msec QTC Interval: 398 msec P-R-T [place]: -5 - 62 - 66 degrees IMPRESSION: SINUS RHYTHM MODERATE INTRAVENTRICULAR CONDUCTION DELAY [110+ ms QRS DURATION] BORDERLINE ECG Electronically Signed By: Timbo Norton MD Janay Barahona MD ECG ORDERABLES Final Res ult [facility] [employer] [facility] * Troponin T high-sensitivity series (baseline, 2hr, 4hr, 6hr) (09/26/2024 9:44 AM CDT) Trop T hs 11 <=22 ng/L Comment: Interpretive Data For further hscTnT resources including the diagnostic algorithm and an aid in interpretation, copy and paste this link: https://nrl.testcatalog.org/show/hsTrop Current Interpretive Data last revised 2020. Blood 09/26/2024 9:44 AM CDT 09/26/2024 9:48 AM CDT Janay Barahona MD LAB BLOOD ORDERABLES Ashia l Result ADRIANA JOAQUIN (DEVINE) 1 [facility] Department [place] [address] * eGFR (09/26/2024 9:44 AM CDT) eGFR >90 >=60 mL/min/1. 73 m2 Comment: Interpretive Data Reference Interval Normal >/= 90 mL/min/1.73m2 Mildly decreased* 60 - 89 mL/min/1.73m2 Mildly to moderately decreased 45 - 59 mL/min/1.73m2 Moderately to severely decreased 30 - 44 mL/min/1.73m2 Severely decreased 15 - 29 mL/min/1.73m2 Kidney Failure < 15 mL/min/1.73m2 *Relative to young adult level Estimated glomerular filtration rate is determined by the 2020 CKD-EPI equation recommended by the National Kidney Foundation (A Unifying Approach to GFR Estimation: Recommendations of the NKF-ASK Task Force on Reassessing the Inclusion of Race in Diagnosing Kidney Disease, JASN 2020). The CKD-EPI equation should not be used for patients with unstable renal function and has not been validated in children and those over 70. Current interpretive data was last reviewed 2021. Blood 09/26/2024 9:44 AM CDT 09/26/2024 9:48 AM CDT Janay Barahona MD LAB BLOOD ORDERABLES Ashia brown Result [facility] (DEVINE) 1 [facility] Department of Laboratories [place], [place] [id number] * Differential, auto (09/26/2024 9:44 AM CDT) Neutrophil abs 4.9 1.5 - 6.5 K/cumm Imm gran abs 0.1 0.0 - 0.1 K/cumm [facility] ([place]) Lymphocyte abs 1.9 0.8 - 3.3 K/cumm [facility] ([place]) Monocyte abs 0.5 0.2 - 0.8 K/cumm [facility] ([place]) Eosinophil abs 0.1 0.0 - 0.5 K/cumm [facility] ([place]) Basophil abs 0.0 0.0 - 0.1 K/cumm [facility] ([place]) Neutrophil pct 65.9 % [facility] ([place]) Comment: Interpretive Data Percent cell count reference ranges are not reported, since discordance with absolute values may lead to misinterpretation of CBC data. Current Interpretive Data was last revised on 2017. Imm gran pct 1.1 % [facility] ([place]) Comment: Interpretive Data Percent cell count reference ranges are not reported, since discordance with absolute values may lead to misinterpretation of CBC data. Current Interpretive Data was last revised on 2017. Lymphocyte pct 24.8 % [facility] ([place]) Comment: Interpretive Data Percent cell count reference ranges are not reported, since discordance with absolute values may lead to misinterpretation of CBC data. Current Interpretive Data was last revised on 2017. Monocyte pct 6.2 % [facility] ([place]) Comment: Interpretive Data Percent cell count reference ranges are not reported, since discordance with absolute values may lead to misinterpretation of CBC data. Current Interpretive Data was last revised on 2017. Eosinophil pct 1.6 % [facility] ([place]) Comment: Interpretive Data Percent cell count reference ranges are not reported, since discordance with absolute values may lead to misinterpretation of CBC data. Current Interpretive Data was last revised on 2017. Basophil pct 0.4 % [facility] ([place]) Comment: Interpretive Data Percent cell count reference ranges are not reported, since discordance with absolute values may lead to misinterpretation of CBC data. Current Interpretive Data was last revised on 2017. Blood 09/26/2024 9:44 AM CDT 09/26/2024 9:48 AM CDT Janay Barahona MD LAB BLOOD ORDERABLES Ashia l Result [facility]ANA [facility] ([place]) 1 [facility] Department [place] [address] * (ABNORMAL) CBC with auto differential (09/26/2024 9:44 AM CDT) WBC 7.5 3.8 - 9.9 K/cumm Hgb 15.6 13.0 - 17.5 g/dL [facility] ([place]) Hct 47.3 38.9 - 50.3 % [facility] ([place]) Plt 154 150 - 400 K/cumm [facility] ([place]) MPV 8.4(L) 9.1 - 12.3 fL [facility] ([place]) RBC 4.74 4.30 - 5.80 M/cumm [facility] ([place]) MCV 99.8(H) 81.3 - 96.4 fL [facility] ([place]) MCH 32.9 27.1 - 33.3 pg [facility] ([place]) MCHC 33.0 32.3 - 35.7 g/dL [facility] ([place]) RDW CV 13.9 11.1 - 14.9 % [facility] RDW SD 51.3(H) 35.7 - 48.1 fL [facility] ([place]) NRBC abs 0.00 0.00 - 0.01 K/cumm [facility] ([place]) Blood Venous blood specimen / Unknown 09/26/2024 9:44 AM CDT 09/26/2024 9:48 AM CDT Janay Barahona MD LAB BLOOD ORDERABLES Ashia l Result [facility] (DEVINE) 1 [facility] Department of Laboratories [place] [id number] * (ABNORMAL) Comprehensive metabolic panel (09/26/2024 9:44 AM CDT) Sodium 135 135 - 145 mmol/L Potassium, pl 4.8 3.3 - 4.9 mmol/L [facility] ([place]) Chloride 96(L) 97 - 110 mmol/L [facility] ([place]) CO2 26 22 - 32 mmol/L [facility] ([place]) Anion gap 13 2 - 15 mmol/L [facility] ([place]) BUN 17 6 - 25 mg/dL [facility] ([place]) Creatinine 0.87 0.80 - 1.30 mg/dL [facility] ([place]) Glucose 274(H) 70 - 199 mg/dL [facility] ([place]) Comment: Interpretive Data Fasting glucose >/= 126 mg/dl is diagnostic for diabetes. Fasting is defined as no caloric intake for at least 8 hours. Fasting glucose between 100 mg/dl to 125 mg/dl is diagnostic of prediabetes. In a patient with classic symptoms of hyperglycemia or hyperglycemic crisis, a random glucose >/= 200 mg/dl is diagnostic for diabetes. In the absence of unequivocal hyperglycemia, results should be confirmed by repeat testing. The classification and Diagnosis of Diabetes Diabetes Care 2021; 46: S19-S40. Current interpretive data was last revised 2022. Calcium 9.8 8.5 - 10.3 mg/dL [facility] ([place]) Bilirubin, total 0.3 0.1 - 1.2 mg/dL [facility] ([place]) Protein, pl 7.3 6.5 - 8.5 g/dL [facility] ([place]) Albumin 4.5 3.5 - 5.0 g/dL [facility] ([place]) Alk phos 66 40 - 130 Units/L [facility] ([place]) ALT 27 7 - 55 Units/L [facility] ([place]) AST 20 10 - 50 Units/L [facility] ([place]) Comment:Slightly Hemolyzed S pecimen Blood 09/26/2024 9:44 AM CDT 09/26/2024 9:48 AM CDT Janay Barahona MD LAB BLOOD ORDERABLES Ashia brown Result [facility] ([place] 1 [facility] Department [place] [address] * PSA screen (07/06/2018 6:23 AM PYRIDINE RECOVERY OPERATOR) PSA-Total 0.39 ng/mL [facility] ([place]) Comment: Interpretive Data AGE SEX REFERENCE INTERVAL 0 minutes-150 years Female None 0 minutes-49 years Male None 50-59 years Male 0-3.90 60-69 years Male 0-5.40 70-79 years Male 0-6.20 80-150 years Male 0-6.20 Current interpretive data last revised 2018. Testing performed by: [facility], [address] [place] [address], [place]., [address] Blood specimen (specimen) 07/06/2018 6:23 AM PYRIDINE RECOVERY OPERATOR 07/06/2018 10:58 AM PYRIDINE RECOVERY OPERATOR Narrative ADRIANA JOAQUIN ([place]) - 07/06/2018 12:17 PM PYRIDINE RECOVERY OPERATOR us Vernonhetal Paula MD LAB BLOOD ORDERABLES Final R esult ADRIANA JOAQUIN ([place]) 1 [facility] [place] [address] from Last 3 Months or Most Recently Relevant to Health Maintenance Insurance [email or web address] MD [email or web address] MD Advance Directives For more information, please contact: [phone] * Full Code (Latest Code Status on File) Date Activated Date Inactivated Comments 09/28/2024 11:19 AM 10/07/2024 5:58 PM * Full Code Date Activated Date Inactivated Comments 09/26/2024 2:12 PM 09/28/2024 4:55 AM Care Teams Bridge Crane Operator Relationship Specialty Start Date End Date Vernon Paula MD PCP - General 11/29/16 Brien Flowers MD [address] [place] [address] Consulting Physician Cardiovascular Disease 10/04/24 Clinical Summary Created on: October 29, 2024 Antelmo Tay : 1970 Sex: Male Author Organization [facility] Address [address] [place] [id number] Care Team Providers Care Bridge Crane Operator Name Role Phone Vernon Paula MD Primary Care Provider [phone] Brien Flowers MD Unavailable [phone] Allergies Active Allergy Reactions Criticality Noted Date Comments Penicillins Rash Medium Rash with Amoxicillin as a child; Tolerates cefazolin (09/2024) Medications omeprazole (PriLOSEC) 20 mg capsule Take 1 capsule (20 mg total) by mouth nightly 04/29/20 09 Active metFORMIN (GLUCOPHAGE) 1,000 mg tablet Take 1 tablet (1,000 mg total) by mouth 2 (two) times a day 06/30/20 Active Anoro Ellipta 62.5-25 mcg/actuation blister with device Inhale 1 puff nightly 05/14/20 Active albuterol HFA (PROVENTIL HFA,VENTOLIN HFA,PROAIR HFA) 90 mcg/actuation inhaler Inhale 2 puffs every 4 (four) hours as needed 01/09/20 Active ALPRAZolam (XANAX) 0.5 mg tablet Take 1 tablet (0.5 mg total) by mouth 3 (three) times a day as needed for anxiety or sleep 06/30/20 Active gabapentin (NEURONTIN) 300 mg capsule Take 1 capsule (300 mg total) by mouth nightly 06/29/20 Active alpha lipoic acid 600 mg capsule Take 1 capsule (600 mg total) by mouth 2 (two) times a day Active aspirin 325 mg tablet Take 1 tablet (325 mg total) by mouth daily 10/09/19 25 026 Active metoprolol XL (TOPROL-XL) 100 mg 24 hr tablet Take 1 tablet (100 mg total) by mouth daily 10/08/19 25 Active furosemide (LASIX) 40 mg tablet Take 1 tablet (40 mg total) by mouth 2 (two) times a day Take 1 tablet (40 mg total) by mouth 2 (two) times a day for 1 week, then decrease to 1 tablet (40 mg total) by mouth once a day for a week. 21 tablet 10/08/19 25 Active potassium chloride ER (KLOR-CON) 20 mEq CR tablet Take 1 tablet (20 mEq total) by mouth 2 (two) times a day Take 1 tablet (20 mEq total) by mouth 2 (two) times a day for 1 week, then decrease to 1 tablet (20 meq total) by mouth once a day for a week. 21 tablet 10/08/19 25 Active SITagliptin phosphate (JANUVIA) 100 mg tabletIndicati ons:type 2 diabetes mellitus Take 1 tablet (100 mg total) by mouth daily 30 tablet 2 10/09/19 25 026 Active rosuvastatin (CRESTOR) 40 mg tablet Take 1 tablet (40 mg total) by mouth nightly 10/08/19 25 Active oxyCODONE-acet aminophen (PERCOCET) 5-325 mg per tabletIndicati ons:Pain Take 1-2 tablets by mouth every 6 (six) hours as needed for pain 40 tablet 10/08/19 25 Active HYDROcodone-ac etaminophen (NORCO) 5-325 mg per tabletIndicati ons:Pain Take 1 tablet by mouth every 4 (four) hours as needed for pain 30 tablet 10/23/19 25 Active losartan-hydro CHLOROthiazide (HYZAAR) 50-12.5 mg per tablet Take 1 tablet by mouth nightly 06/30/20 025 Discontinued(St op Taking at Discharge) metoprolol XL (TOPROL-XL) 100 mg 24 hr tablet Take 0.5 tablets (50 mg total) by mouth daily 06/30/20 025 Discontinued rosuvastatin (CRESTOR) 40 mg tablet Take 0.5 tablets (20 mg total) by mouth nightly 06/30/20 025 Discontinued amLODIPine (NORVASC) 5 mg tablet Take 1 tablet (5 mg total) by mouth daily 30 tablet 11 09/29/19 25 025 Discontinued(St op Taking at Discharge) aspirin 81 mg enteric coated tablet Take 1 tablet (81 mg total) by mouth daily 025 Discontinued(St op Taking at Discharge) HYDROcodone-ac etaminophen (NORCO) 5-325 mg per tabletIndicati ons:Pain Take 2 tablets by mouth every 6 (six) hours as needed for pain 40 tablet 10/13/19 25 025 Discontinued Active Problems Problem Noted Date Diagnosed Date Diabetes mellitus 09/29/2024 Chest pain 09/28/2024 Hypertension 09/28/2024 Atherosclerosis of [place] co ronary artery of [place] heart with unstable angina pectoris 09/27/2024 Coronary artery disease invo lving ho-chunk coronary artery of ho-chunk heart with unstable angina pectoris 09/27/2024 Acute chest pain 09/26/2024 Encounters Date Type Department Care Team Description 10/22/2024 Telephone Cardiovascular and Thoracic Surgery [address] [facility] [address] [place] [address] Matias Limon MD 10/16/2024 2:00 PM CDT Home Care Visit [address] [address] [address] [place] [address] Alyssia Vásquez, RN SN HOME VISIT 10/16/2024 Home Care Visit [address] [address] [address] [place] [address] Alyssia Vásquez, RN CARE CONFERENCE 10/12/2024 Orders Only Cardiovascular and Thoracic Surgery [address] [place] [address] [address] [place] [address] Hui Patel NP 10/12/2024 Home Care Visit [address] [address] [address] [place] [address] Alyssia Vásquez, RN TELEPHONE ENCOUNTER 10/12/2024 Telephone Cardiovascular and Thoracic Surgery [address] [place] [address] [address] [place] [address] Matias Limon MD OTHER 10/11/2024 Telephone Cardiovascular and Thoracic Surgery [address] [place] [address] [address] [place] [address] Matias Limon MD OTHER; Letter for VA 10/09/2024 1:00 PM CDT Home Care Visit [address] [address] [address] [place] [address] Alyssia Vásquez, RN SN OASIS START OF CARE 10/09/2024 Plan of Care Documentation [address] [place] [address] 10/08/2024 Telephone [facility] [place] [address] [facility] [address] [place] [address] Fadi Russo EP-C CRHetal Education Call 10/08/2024 Telephone [facility] Home Care Services [address] [place] [address] Rylie Bennett 10/04/2024 Telephone [facility] Dermatology [facility] 4th Floor [address] [place] [address] Jeri Hudson 10/01/2024 9:40 AM CDT - 10/01/2024 3:35 PM CDT Surgery [facility] Operating Room [address] [place] [phone] Matias Limon MD CORONARY ARTERY BYPASS GRAFTS 10/01/2024 9:07 AM CDT Anesthesia Event [facility] Operating Room [address] [place] [phone] Radu Blair MD Peterson, Nathan Scott, CRNA 10/01/2024 6:45 AM CDT Ancillary Procedure [facility] Operating Room [address] [place] [phone] 09/28/2024 4:55 AM CDT - 10/07/2024 1:30 PM CDT Hospital Encounter [address] [address] Des Vazquez MD Baig, Sophia, MD Mauney, Michael Clark, MD Coronary artery disease 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 Cardiac Catheterization 1 [place] [address] Timbo Norton MD LEFT HEART CATHETERIZATION WITH CORONARY ANGIOGRAPHY AND WITH OR WITHOUT LEFT VENTRICULOGRAM [id number] 09/27/2024 Orders Only [address] [phone] Des Vazquez MD 09/26/2024 9:45 AM CDT - 09/28/2024 4:10 AM CDT Hospital Encounter [facility] Acute Medicine 1 [place] [address] Janay Barahona MD Kheirkhahan, Nazanin, MD Singh, Supriya, MD Acute chest pain (Primary Dx); Gastritis without bleeding, unspecified chronicity, unspecified gastritis type; Malar rash; Atherosclerosis of ho-chunk coronary artery of ho-chunk heart with unstable angina pectoris (HCC) [I25.110] Discharge Disposition: Discharge to a short term hospital for IP from Last 3 Months Surgical History Surgery Date Site/Laterality Comments CARDIAC CATHETERIZATION 09/27/2024 N/A Procedure: LEFT HEART CATHETERIZATION WITH CORONARY ANGIOGRAPHY AND WITH OR WITHOUT LEFT VENTRICULOGRAM [id number]; Surgeon: Timbo Norton MD; 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; Service: Cardiovascular; Laterality: N/A; CORONARY ANGIOPLASTY WITH STENT PLACEMENT 07/18/2004 - 07/17/2005 LAD stent CORONARY ANGIOPLASTY WITH STENT PLACEMENT 07/18/2015 - 07/17/2016 two LCX stents BICEPS TENDON REPAIR Right Medical History Medical History Date Comments Hypertension Coronary artery disease Diabetes mellitus (HCC) Continuous tobacco abuse Two pac ks a day 35 years COPD (chronic obstructive pulmonary disease) (HC C) Severe obesity (BMI 35.0-39.9) with comorbidity (HCC) Social History Tobacco Use Types Packs/Day Years Used Date Smoking Tobacco: Every Day Cigarettes Tobacco Cessation:Ready to Q uit: Not Asked; Counseling Given: Not Answered Alcohol Use Standard Drinks/Week Comments Yes 7 (1 standard drink = 0.6 oz pur e alcohol) OASIS D0700: Social Isolation Answer Da te Recorded Frequency of experiencing loneliness or isolatio n Never 10/09/2024 OASIS A1250: Transportation Answer Date Recorded Lack of Transportation (Medical) No 10/09/2024 Lack of Transportation (Non-Medical) No 10/09/2024 Patient Unable or Declines to Respond No 10/09/2024 OASIS B1300: Health Literacy Answer Anjel e Recorded Frequency of needing help to read materials from doctor or pharmacy Never 10/09/2024 C Utilities Answer Date Recorded In the past 12 months has th e [employer], gas, oil, or water company threatened to shut off services in your home? No 10/04/2024 Social Connection and Isolat ion Panel [NHANES] Answer Date Recorded In a typical week, how many times do you talk on the phone with family, friends, or neighbors? More than three times a week 10/04/2024 How often do you get togethe r with friends or relatives? Twice a week 10/04/2024 How often do you attend chur ch or sikhism services? Never 10/04/2024 Do you belong to any clubs o r organizations such as pentecostal groups, unions, fraternal or athletic groups, or school groups? No 10/04/2024 How often do you attend meet ings of the clubs or organizations you belong to? Never 10/04/2024 Are you , , di vorced, , never , or living with a partner? 10/04/2024 AUDIT-C Answer Date Recorded Q1: How often do you have a drink containing alcohol? 4 or more times a week 10/01/2024 Q2: How many drinks containi ng alcohol do you have on a typical day when you are drinking? 7 to 9 Q3: How often do you have si x or more drinks on one occasion? Daily or almost daily 10/01/2024 Overall Financial Resource Strain (CARDIA) Answe r Date Recorded How hard is it for you to pa y for the very basics like food, housing, medical care, and heating? Not very hard 10/04/2024 Hunger Vital Sign Answer Date Recorded Within the past 12 months, y ou worried that your food would run out before you got the money to buy more. Never true 10/05/19 Within the past 12 months, t he food you bought just didn't last and you didn't have money to get more. Never true 10/04/2024 PRAPARE - Transportation Answer Date Re corded In the past 12 months, has l ack of transportation kept you from medical appointments or from getting medications? No 09/16 In the past 12 months, has l ack of transportation kept you from meetings, work, or from getting things needed for daily living? No 10/04/2024 Housing Stability Vital Sign Answer Anjel e Recorded In the last 12 months, was t here a time when you were not able to pay the mortgage or rent on time? No 09/27/2024 In the past 12 months, how m any times have you moved where you were living? 0 09/27/2024 At any time in the past 12 m [facility], were you homeless or living in a alf (including now)? No 09/27/2024 Personal Safety Answer Date Recorded Have you ever been in or are you currently in a harmful physical or emotional relationship or is someone making you feel afraid or unsafe? 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 Gender Identity Not on file Sexual Orientation Not on file Obstetrics History Last Filed Vital Signs Vital Sign Reading Time Taken Comments Blood Pressure 118/62 10/09/2024 1:10 PM CDT Pulse 82 10/09/2024 1:10 PM CDT Temperature 36.5 C (97.7 F) 10/09/2024 1:10 PM CDT Respiratory Rate 18 10/09/2024 1:10 PM CDT Oxygen Saturation 98% 10/09/2024 1:10 PM CDT Inhaled Oxygen Concentration - - Weight 141.1 kg (311 lb) 10/09/2024 1:10 PM CDT Height 188 cm (6' 2 ) 10/09/2024 1:10 PM CDT Body Mass Index 39.93 10/09/2024 1:10 PM CDT Plan of Treatment Health Maintenance Due Date Last Done Comments Albumin Creatinine Ratio, Urine 1968 Colon Cancer Screening-Colonoscopy 1968 Depression Screening 1968 Hepatitis C Screening 1968 Dilated Eye Exam 1968 Foot Exam 1968 DTaP/Tdap/Td Vaccine (1 - Tdap) 11/07/1979 Hepatitis B Screening 1986 Regular Well Visit/Exam 18-64 1986 Pneumococcal vaccine <65 (1 of 2 - PCV) 11/07/1987 Zoster Vaccine (1 of 2) 2018 Prostate Cancer Screening-PSA 07/06/2020 07/06/2018, 11/29/2016 Influenza Vaccine (Season Ended) 2025 Hemoglobin A1C 03/30/2025 09/27/2024, 11/29/2016 Lipid Panel 09/27/2025 09/27/2024, 06/18, 05/23/2017, Additional history exists eGFR 10/07/2025 10/07/2024, 09/16, 10/05/2024, Additional history exists Procedures Procedure Name Priority Date/Time Associated Diagnosis Comments POCT GLUCOSE DEVICE Routine 10/07/2024 8 :14 AM CDT XR CHEST 1 VIEW IP Routine 10/07/2024 5:47 AM CDT EGFR Routine 10/07/2024 1:39 AM CDT MAGNESIUM Routine 10/07/2024 1:39 AM CDT RENAL FUNCTION PANEL Routine 10/07/2024 1:39 AM CDT CBC WITHOUT DIFFERENTIAL Routine 10/07/2024 1:39 AM CDT XR CHEST 1 VIEW ED Urgent/IP Urgent 10/06/2024 9:32 PM CDT POCT GLUCOSE DEVICE Routine 10/06/2024 8 :53 PM CDT POCT GLUCOSE DEVICE Routine 10/06/2024 5 :08 PM CDT XR CHEST 1 VIEW IP Routine 10/06/2024 1:28 PM CDT POCT GLUCOSE DEVICE Routine 10/06/2024 1 2:22 PM CDT POCT GLUCOSE DEVICE Routine 10/06/2024 7 :13 AM CDT XR CHEST 1 VIEW IP Routine 10/06/2024 6:16 AM CDT EGFR Routine 10/06/2024 1:31 AM CDT MAGNESIUM Routine 10/06/2024 1:31 AM CDT RENAL FUNCTION PANEL Routine 10/06/2024 1:31 AM CDT CBC WITHOUT DIFFERENTIAL Routine 10/06/2024 1:31 AM CDT POCT GLUCOSE DEVICE Routine 10/05/2024 1 0:14 PM CDT POCT GLUCOSE DEVICE Routine 10/05/2024 5 :09 PM CDT XR CHEST 1 VIEW ED Urgent/IP Urgent 10/05/2024 3:01 PM CDT POCT GLUCOSE DEVICE Routine 10/05/2024 1 2:22 PM CDT POCT GLUCOSE DEVICE Routine 10/05/2024 8 :04 AM CDT XR CHEST 1 VIEW IP Routine 10/05/2024 6:01 AM CDT EGFR Routine 10/05/2024 12:56 AM CDT MAGNESIUM Routine 10/05/2024 12:56 AM CDT RENAL FUNCTION PANEL Routine 10/05/2024 12:56 AM CDT CBC WITHOUT DIFFERENTIAL Routine 10/05/2024 12:56 AM CDT TYPE AND SCREEN Timed 10/05/2024 12:56 AM CDT POCT GLUCOSE DEVICE Routine 10/04/2024 8 :58 PM CDT POCT GLUCOSE DEVICE Routine 10/04/2024 8 :19 PM CDT POCT GLUCOSE DEVICE Routine 10/04/2024 5 :20 PM CDT POCT GLUCOSE DEVICE Routine 10/04/2024 1 2:34 PM CDT POCT GLUCOSE DEVICE Routine 10/04/2024 8 :17 AM CDT XR CHEST 1 VIEW IP Routine 10/04/2024 5:47 AM CDT EGFR Routine 10/04/2024 12:27 AM CDT MAGNESIUM Routine 10/04/2024 12:27 AM CDT RENAL FUNCTION PANEL Routine 10/04/2024 12:27 AM CDT CBC WITHOUT DIFFERENTIAL Routine 10/04/2024 12:27 AM CDT POCT GLUCOSE DEVICE Routine 10/03/2024 8 :44 PM CDT XR CHEST 1 VIEW ED Urgent/IP Urgent 10/03/2024 6:35 PM CDT POCT GLUCOSE DEVICE Routine 10/03/2024 5 :27 PM CDT POCT GLUCOSE DEVICE Routine 10/03/2024 1 2:21 PM CDT POCT GLUCOSE DEVICE Routine 10/03/2024 7 :56 AM CDT XR CHEST 1 VIEW IP Routine 10/03/2024 6:13 AM CDT POCT GLUCOSE DEVICE Routine 10/03/2024 4 :56 AM CDT POCT GLUCOSE DEVICE Routine 10/03/2024 3 :18 AM CDT POCT GLUCOSE DEVICE Routine 10/03/2024 2 :15 AM CDT EGFR Routine 10/02/2024 11:38 PM CDT MAGNESIUM Routine 10/02/2024 11:38 PM CDT CALCIUM, IONIZED Routine 10/02/2024 11:3 8 PM CDT RENAL FUNCTION PANEL Routine 10/02/2024 11:38 PM CDT CBC WITHOUT DIFFERENTIAL Routine 10/02/2024 11:38 PM CDT POCT GLUCOSE DEVICE Routine 10/02/2024 1 1:35 PM CDT POCT GLUCOSE DEVICE Routine 10/02/2024 1 0:12 PM CDT POCT GLUCOSE DEVICE Routine 10/02/2024 8 :46 PM CDT CRITICAL CARE Routine 10/02/2024 7:44 PM CDT Coronary artery disease 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 (HCC) POCT GLUCOSE DEVICE Routine 10/02/2024 5 :07 PM CDT POCT GLUCOSE DEVICE Routine 10/02/2024 4 :02 PM CDT POCT GLUCOSE DEVICE Routine 10/02/2024 2 :08 PM CDT CRITICAL CARE Routine 10/02/2024 1:30 PM CDT S/P CABG x 5 POCT GLUCOSE DEVICE Routine 10/02/2024 1 2:05 PM CDT POCT GLUCOSE DEVICE Routine 10/02/2024 1 0:11 AM CDT OXYHEMOGLOBIN, CENTRAL VENOUS STAT 10/02/2024 9:10 AM CDT OXYHEMOGLOBIN, PULMONARY ARTERY STAT 10/02/2024 9:07 AM CDT POCT GLUCOSE DEVICE Routine 10/02/2024 8 :13 AM CDT POCT GLUCOSE DEVICE Routine 10/02/2024 7 :10 AM CDT XR CHEST 1 VIEW IP Routine 10/02/2024 6:37 AM CDT OXYHEMOGLOBIN, PULMONARY ARTERY Routine 10/02/2024 6:14 AM CDT POCT GLUCOSE DEVICE Routine 10/02/2024 6 :08 AM CDT POCT GLUCOSE DEVICE Routine 10/02/2024 4 :07 AM CDT POCT GLUCOSE DEVICE Routine 10/02/2024 3 :01 AM CDT POCT GLUCOSE DEVICE Routine 10/02/2024 2 :08 AM CDT POCT GLUCOSE DEVICE Routine 10/02/2024 1 :15 AM CDT EGFR Routine 10/02/2024 12:18 AM CDT BLOOD GAS, ARTERIAL Routine 10/02/2024 1 2:18 AM CDT MAGNESIUM Routine 10/02/2024 12:18 AM CDT CALCIUM, IONIZED Routine 10/02/2024 12:1 8 AM CDT RENAL FUNCTION PANEL Routine 10/02/2024 12:18 AM CDT CBC WITHOUT DIFFERENTIAL Routine 10/02/2024 12:18 AM CDT POCT GLUCOSE DEVICE Routine 10/02/2024 1 2:15 AM CDT POCT GLUCOSE DEVICE Routine 10/01/2024 1 1:18 PM CDT POCT GLUCOSE DEVICE Routine 10/01/2024 1 0:21 PM CDT POCT GLUCOSE DEVICE Routine 10/01/2024 9 :09 PM CDT CRITICAL CARE Routine 10/01/2024 8:58 PM CDT Coronary artery disease 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 (HCC) OXYHEMOGLOBIN, PULMONARY ARTERY Routine 10/01/2024 8:58 PM CDT POCT GLUCOSE DEVICE Routine 10/01/2024 8 :03 PM CDT LACTATE Routine 10/01/2024 6:42 PM CDT BLOOD GAS, ARTERIAL STAT 10/01/2024 6 :26 PM CDT POCT GLUCOSE DEVICE Routine 10/01/2024 5 :59 PM CDT POCT GLUCOSE DEVICE Routine 10/01/2024 4 :42 PM CDT POCT ACTIVATED CLOTTING TIME, LOW RANGE Routine 10/01/2024 4:40 PM CDT XR CHEST 1 VIEW ED Urgent/IP Urgent 10/01/2024 4:06 PM CDT POCT GLUCOSE DEVICE Routine 10/01/2024 3 :48 PM CDT EGFR STAT 10/01/2024 3:45 PM CDT APTT STAT 10/01/2024 3:45 PM CDT PROTIME-INR STAT 10/01/2024 3:45 PM CDT CBC WITHOUT DIFFERENTIAL STAT 10/01/2024 3:45 PM CDT BLOOD GAS, ARTERIAL STAT 10/01/2024 3 :45 PM CDT CALCIUM, IONIZED STAT 10/01/2024 3:45 PM CDT MAGNESIUM STAT 10/01/2024 3:45 PM CDT BASIC METABOLIC PANEL STAT 10/01/2024 3:45 PM CDT PHOSPHORUS STAT 10/01/2024 3:45 PM CDT CRITICAL CARE Routine 10/01/2024 3:30 PM CDT S/P CABG x 5 POC BLOOD GAS AND CHEMISTRIES, ARTERIAL Routine 10/01/2024 3:01 PM CDT PROTIME-INR STAT 10/01/2024 2:33 PM CDT FIBRINOGEN STAT 10/01/2024 2:33 PM CDT CBC WITHOUT DIFFERENTIAL STAT 10/01/2024 2:33 PM CDT APTT STAT 10/01/2024 2:33 PM CDT POC BLOOD GAS AND CHEMISTRIES, ARTERIAL Routine 10/01/2024 2:22 PM CDT POCT ACTIVATED CLOTTING TIME, HIGH RANGE Routine 10/01/2024 2:20 PM CDT OH AN PROCEDURE PLACEHOLDER Routine 10/01/2024 2:00 PM CDT POCT ACTIVATED CLOTTING TIME, HIGH RANGE Routine 10/01/2024 1:56 PM CDT POC BLOOD GAS AND CHEMISTRIES, ARTERIAL Routine 10/01/2024 1:55 PM CDT POCT ACTIVATED CLOTTING TIME, HIGH RANGE Routine 10/01/2024 1:24 PM CDT POC BLOOD GAS AND CHEMISTRIES, ARTERIAL Routine 10/01/2024 1:12 PM CDT POCT ACTIVATED CLOTTING TIME, HIGH RANGE Routine 10/01/2024 1:11 PM CDT POC BLOOD GAS AND CHEMISTRIES, ARTERIAL Routine 10/01/2024 12:41 PM CDT POCT ACTIVATED CLOTTING TIME, HIGH RANGE Routine 10/01/2024 12:41 PM CDT POCT ACTIVATED CLOTTING TIME, HIGH RANGE Routine 10/01/2024 12:14 PM CDT POC BLOOD GAS AND CHEMISTRIES, VENOUS Routine 10/01/2024 11:55 AM CDT POCT ACTIVATED CLOTTING TIME, HIGH RANGE Routine 10/01/2024 11:53 AM CDT POC BLOOD GAS AND CHEMISTRIES, ARTERIAL Routine 10/01/2024 11:40 AM CDT POC BLOOD GAS AND CHEMISTRIES, ARTERIAL Routine 10/01/2024 11:10 AM CDT POCT ACTIVATED CLOTTING TIME, HIGH RANGE Routine 10/01/2024 11:10 AM CDT OH AN PROCEDURE PLACEHOLDER Routine 10/01/2024 9:37 AM CDT OH AN CENTRAL LINE QUADRUPLE LUMEN Routine 10/01/2024 9:37 AM CDT OH AN PROCEDURE PLACEHOLDER Routine 10/01/2024 9:37 AM CDT PULMONARY ARTERY CATH Routine 10/01/2024 9:37 AM CDT BW AN SHEATH INTRODUCER PERFORMABLE Routine 10/01/2024 9:37 AM CDT OH AN PROCEDURE PLACEHOLDER Routine 10/01/2024 9:36 AM CDT OH AN PROCEDURE PLACEHOLDER Routine 10/01/2024 9:35 AM CDT OH AN ELECTIVE ENDOTRACHEAL AIRWAY Routine 10/01/2024 9:35 AM CDT POCT ACTIVATED CLOTTING TIME, HIGH RANGE Routine 10/01/2024 9:24 AM CDT PREPARE RBC STAT 10/01/2024 9:12 AM CDT CORONARY ARTERY BYPASS GRAFT 10/01/2024 8:37 AM CDT Coronary artery disease 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 (HCC) POCT GLUCOSE DEVICE Routine 10/01/2024 7 :13 AM CDT DEMARIO ADD-ON FOR OR Routine 10/01/2024 6:4 0 AM CDT APTT Routine 10/01/2024 5:39 AM CDT POCT GLUCOSE DEVICE Routine 10/01/2024 5 :16 AM CDT EGFR Routine 10/01/2024 1:24 AM CDT DIFFERENTIAL AUTO Routine 10/01/2024 1:2 4 AM CDT BASIC METABOLIC PANEL Routine 10/01/2024 1:24 AM CDT CBC WITH AUTO DIFFERENTIAL Routine 10/01/2024 1:24 AM CDT POCT GLUCOSE DEVICE Routine 09/30/2024 8 :10 PM CDT POCT GLUCOSE DEVICE Routine 09/30/2024 6 :00 PM CDT POCT GLUCOSE DEVICE Routine 09/30/2024 1 2:55 PM CDT POCT GLUCOSE DEVICE Routine 09/30/2024 8 :46 AM CDT EGFR Routine 09/30/2024 3:46 AM CDT DIFFERENTIAL AUTO Routine 09/30/2024 3:4 6 AM CDT APTT Routine 09/30/2024 3:46 AM CDT BASIC METABOLIC PANEL Routine 09/30/2024 3:46 AM CDT CBC WITH AUTO DIFFERENTIAL Routine 09/30/2024 3:46 AM CDT TYPE AND SCREEN Routine 09/30/2024 3:42 AM CDT POCT GLUCOSE DEVICE Routine 09/29/2024 8 :52 PM CDT POCT GLUCOSE DEVICE Routine 09/29/2024 5 :57 PM CDT APTT Timed 09/29/2024 2:25 PM CDT POCT GLUCOSE DEVICE Routine 09/29/2024 1 2:34 PM CDT POCT GLUCOSE DEVICE Routine 09/29/2024 8 :46 AM CDT APTT Timed 09/29/2024 7:56 AM CDT B CHECK SAMPLE Routine 09/29/2024 4:37 AM CDT EGFR Routine 09/29/2024 4:37 AM CDT DIFFERENTIAL AUTO Routine 09/29/2024 4:3 7 AM CDT BASIC METABOLIC PANEL Routine 09/29/2024 4:37 AM CDT CBC WITH AUTO DIFFERENTIAL Routine 09/29/2024 4:37 AM CDT APTT Timed 09/29/2024 12:27 AM CDT POCT GLUCOSE DEVICE Routine 09/28/2024 7 :58 PM CDT POCT GLUCOSE DEVICE Routine 09/28/2024 5 :54 PM CDT APTT Timed 09/28/2024 3:49 PM CDT XR CHEST PA LATERAL 2 VIEWS IP Routine 09/28/2024 2:39 PM CDT PREPARE RBC STAT 09/28/2024 12:53 PM CDT POCT GLUCOSE DEVICE Routine 09/28/2024 1 1:00 AM CDT EGFR Routine 09/28/2024 8:28 AM CDT DIFFERENTIAL AUTO Routine 09/28/2024 8:2 8 AM CDT APTT Timed 09/28/2024 8:28 AM CDT MAGNESIUM Routine 09/28/2024 8:28 AM CDT COMPREHENSIVE METABOLIC PANEL Routine 09/28/2024 8:28 AM CDT CBC WITH AUTO DIFFERENTIAL Routine 09/28/2024 8:28 AM CDT POCT GLUCOSE DEVICE Routine 09/28/2024 8 :27 AM CDT POCT GLUCOSE DEVICE Routine 09/28/2024 3 :17 AM CDT APTT STAT 09/28/2024 1:01 AM CDT POCT GLUCOSE DEVICE Routine 09/27/2024 8 :56 PM CDT POCT GLUCOSE DEVICE Routine 09/27/2024 4 :48 PM CDT APTT STAT 09/27/2024 3:25 PM CDT PROTIME-INR STAT 09/27/2024 3:25 PM CDT LEFT HEART CATHETERIZATION WITH CORONARY ANGIOGRAPHY AND WITH AND WITHOUT LEFT VENTRICULOGRAM Routine 09/27/2024 2:18 PM CDT Acute chest pain POCT GLUCOSE DEVICE Routine 09/27/2024 1 1:46 AM CDT TRANSTHORACIC ECHO (TTE) COMPLETE W DOPPLER/CF WO CONTRAST Routine 09/27/2024 10:44 AM CDT POCT GLUCOSE DEVICE Routine 09/27/2024 8 :11 AM CDT EGFR Routine 09/27/2024 4:09 AM CDT DIFFERENTIAL AUTO Routine 09/27/2024 4:0 9 AM CDT HEMOGLOBIN A1C Routine 09/27/2024 4:09 AM CDT LIPID PANEL Routine 09/27/2024 4:09 AM CDT MAGNESIUM Routine 09/27/2024 4:09 AM CDT BASIC METABOLIC PANEL Routine 09/27/2024 4:09 AM CDT CBC WITH AUTO DIFFERENTIAL Routine 09/27/2024 4:09 AM CDT POCT GLUCOSE DEVICE Routine 09/27/2024 2 :56 AM CDT ECG 12-LEAD STAT 09/26/2024 9:34 PM CDT POCT GLUCOSE DEVICE Routine 09/26/2024 8 :45 PM CDT TROPONIN T HIGH-SENSITIVITY 6-HOUR Timed 09/26/2024 5:09 PM CDT POCT GLUCOSE DEVICE Routine 09/26/2024 5 :[address] CHEST PE ABDOMEN PELVIS W CONTRAST ED 09/26/2024 12:44 PM CDT MAGNESIUM Routine 09/26/2024 12:11 PM CDT TROPONIN T HIGH-SENSITIVITY 2-HOUR Timed 09/26/2024 12:11 PM CDT XR CHEST 1 VIEW ED 09/26/2024 9:51 AM CDT ECG 12-LEAD STAT 09/26/2024 9:45 AM CDT EGFR STAT 09/26/2024 9:44 AM CDT DIFFERENTIAL AUTO STAT 09/26/2024 9:4 4 AM CDT TROPONIN T HIGH-SENSITIVITY SERIES (BASELINE, 2HR, 4HR, 6HR) STAT 09/26/2024 9:44 AM CDT COMPREHENSIVE METABOLIC PANEL STAT 09/26/2024 9:44 AM CDT CBC WITH AUTO DIFFERENTIAL STAT 09/26/2024 9:44 AM CDT PSA SCREEN Routine 07/06/2018 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 Glucose, POC 187 70 - 199 mg/dL Comment: For Glucose values <35 mg/dl when Hematocrit is >60 mg/dl,the test may not accurately detect significant hypoglycemia,and testing in the Laboratory should be considered if clinically indicated. POC Performer [id number] [facility] Blood 10/07/2024 8:14 AM CDT 10/07/2024 8:14 AM CDT us Matias Limon MD LAB POCT ORDERABLES - DE VICE Final Result [facility] [address] Department [place] [address] * XR Chest 1 View - Portable - in AM (10/07/2024 5:47 AM CDT) Anatomical Region Laterality Modality Body, Chest N/A Computed Radiogr aphy 10/07/2024 7:23 AM CDT Impressions 10/07/2024 7:23 AM CDT XR CHEST 1 VIEW, dated 10/06/2024 at 9:26 PM Comparison is made to prior chest radiograph dated 10/06/2024 at 1:24 PM. Median sternotomy wires are unchanged. Tip of the right internal jugular central venous catheter terminates in the superior vena cava. Mild bibasilar atelectasis is unchanged. There may be tiny pleural effusions. No pneumothorax. Stable heart size XR CHEST 1 VIEW, dated 10/07/2024 at 5:40 AM Comparison is made to the above study. No significant interval change. Electronically signed by: Jewels Burger M.D. Narrative 10/07/2024 7:23 AM CDT EXAMINATION: XR CHEST 1 VIEW, dated 10/06/2024 at 9:26 PM XR CHEST 1 VIEW, dated 10/07/2024 at 5:40 AM Procedure Note Jewels Burger MD - 10/07/2024 EXAMINATION: XR CHEST 1 VIEW, dated 10/06/2024 at 9:26 PM XR CHEST 1 VIEW, dated 10/07/2024 at 5:40 AM IMPRESSION: XR CHEST 1 VIEW, dated 10/06/2024 at 9:26 PM Comparison is made to prior chest radiograph dated 10/06/2024 at 1:24 PM. Median sternotomy wires are unchanged. Tip of the right internal jugular central venous catheter terminates in the superior vena cava. Mild bibasilar atelectasis is unchanged. There may be tiny pleural effusions. No pneumothorax. Stable heart size XR CHEST 1 VIEW, dated 10/07/2024 at 5:40 AM Comparison is made to the above study. No significant interval change. Electronically signed by: Jewels Burger M.D. Maxwell Hughes MD IMG XR PROCEDURES Final Result * eGFR (10/07/2024 1:39 AM CDT) [facility] eGFR >90 >=60 mL/min/1. 73 m2 Comment: Interpretive Data Reference Interval Normal >/= 90 mL/min/1.73m2 Mildly decreased* 60 - 89 mL/min/1.73m2 Mildly to moderately decreased 45 - 59 mL/min/1.73m2 Moderately to severely decreased 30 - 44 mL/min/1.73m2 Severely decreased 15 - 29 mL/min/1.73m2 Kidney Failure < 15 mL/min/1.73m2 *Relative to young adult level Estimated glomerular filtration rate is determined by the 2020 CKD-EPI equation recommended by the [employer] (A Unifying Approach to GFR Estimation: Recommendations of the [employer]F-ASK Task Force on Reassessing the Inclusion of Race in Diagnosing Kidney Disease, JASN 2020). The CKD-EPI equation should not be used for patients with unstable renal function and has not been validated in children and those over 70. Current interpretive data was last reviewed 2021. Blood 10/07/2024 1:39 AM CDT 10/07/2024 1:52 AM CDT us Maxwell Hughes MD LAB BLOOD ORDERABLES Final Res ult [facility] [address] Department [place] [address] * (ABNORMAL) CBC without differential (10/07/2024 1:39 AM CDT) [facility] WBC 8.3 3.8 - 9.9 K/cumm Hgb 10.0(L) 13.0 - 17.5 g/dL [facility] Hct 31.7(L) 38.9 - 50.3 % [facility] Plt 221 150 - 400 K/cumm [facility] MPV 8.8(L) 9.1 - 12.3 fL [facility] RBC 3.11(L) 4.30 - 5.80 M/cumm [facility] MCV 101.9(H) 81.3 - 96.4 fL [facility] MCH 32.2 27.1 - 33.3 pg [facility] MCHC 31.5(L) 32.3 - 35.7 g/dL [facility] RDW CV 13.9 11.1 - 14.9 % [facility] RDW SD 51.4(H) 35.7 - 48.1 fL [facility] NRBC abs 0.00 0.00 - 0.01 K/cumm [facility] Blood 10/07/2024 1:39 AM CDT 10/07/2024 1:52 AM CDT Maxwell Hughes MD LAB BLOOD ORDERABLES Final Res ult Performing Organization Address City/[facility]/ZIP Co de Phone Number [facility] [address] [employer] [place], [place] [id number] * Magnesium (10/07/2024 1:39 AM CDT) [facility] Magnesium 1.9 1.4 - 2.5 mg/dL Blood 10/07/2024 1:39 AM CDT 10/07/2024 1:52 AM CDT Maxwell Hughes MD LAB BLOOD ORDERABLES Final Res ult Performing Organization Address [facility] Co de Phone Number [facility] [address] [place] [address] * Renal function panel (10/07/2024 1:39 AM CDT) Pathologist [facility] Sodium 137 135 - 145 mmol/L Potassium, pl 3.9 3.3 - 4.9 mmol/L [facility] Chloride 97 97 - 110 mmol/L [facility] CO2 28 22 - 32 mmol/L [facility] Anion gap 12 2 - 15 mmol/L [facility] BUN 16 6 - 25 mg/dL [facility] Creatinine 0.81 0.80 - 1.30 mg/dL [facility] Glucose 188 70 - 199 mg/dL [facility] Comment: Interpretive Data Fasting glucose >/= 126 mg/dl is diagnostic for diabetes. Fasting is defined as no caloric intake for at least 8 hours. Fasting glucose between 100 mg/dl to 125 mg/dl is diagnostic of prediabetes. In a patient with classic symptoms of hyperglycemia or hyperglycemic crisis, a random glucose >/= 200 mg/dl is diagnostic for diabetes. In the absence of unequivocal hyperglycemia, results should be confirmed by repeat testing. The classification and Diagnosis of Diabetes Diabetes Care 2021; 46: S19-S40. Current interpretive data was last revised 2022. Calcium 8.9 8.5 - 10.3 mg/dL [facility] Phosphorus, pl 4.4 2.3 - 4.5 mg/dL [facility] Albumin 3.5 3.5 - 5.0 g/dL [facility] Blood 10/07/2024 1:39 AM CDT 10/07/2024 1:52 AM CDT us Maxwell Hughes MD LAB BLOOD ORDERABLES Final Res ult [facility] [address] Department [place] [address] * XR Chest 1 Vw (10/06/2024 9:32 PM CDT) Anatomical Region Laterality Modality Body, Chest N/A Computed Radiogr aphy 10/07/2024 7:23 AM CDT Impressions 10/07/2024 7:23 AM CDT XR CHEST 1 VIEW, dated 10/06/2024 at 9:26 PM Comparison is made to prior chest radiograph dated 10/06/2024 at 1:24 PM. Median sternotomy wires are unchanged. Tip of the right internal jugular central venous catheter terminates in the superior vena cava. Mild bibasilar atelectasis is unchanged. There may be tiny pleural effusions. No pneumothorax. Stable heart size XR CHEST 1 VIEW, dated 10/07/2024 at 5:40 AM Comparison is made to the above study. No significant interval change. Electronically signed by: Jewels Burger M.D. Narrative 10/07/2024 7:23 AM CDT EXAMINATION: XR CHEST 1 VIEW, dated 10/06/2024 at 9:26 PM XR CHEST 1 VIEW, dated 10/07/2024 at 5:40 AM Procedure Note Jewels Burger MD - 10/07/2024 EXAMINATION: XR CHEST 1 VIEW, dated 10/06/2024 at 9:26 PM XR CHEST 1 VIEW, dated 10/07/2024 at 5:40 AM IMPRESSION: XR CHEST 1 VIEW, dated 10/06/2024 at 9:26 PM Comparison is made to prior chest radiograph dated 10/06/2024 at 1:24 PM. Median sternotomy wires are unchanged. Tip of the right internal jugular central venous catheter terminates in the superior vena cava. Mild bibasilar atelectasis is unchanged. There may be tiny pleural effusions. No pneumothorax. Stable heart size XR CHEST 1 VIEW, dated 10/07/2024 at 5:40 AM Comparison is made to the above study. No significant interval change. Electronically signed by: Jewels Burger M.D. Alberto RAMOS IMG XR PROCEDURES Final Result * POCT glucose (10/06/2024 8:53 PM CDT) [facility] Glucose, POC 191 70 - 199 mg/dL Comment: For Glucose values <35 mg/dl when Hematocrit is >60 mg/dl,the test may not accurately detect significant hypoglycemia,and testing in the Laboratory should be considered if clinically indicated. POC Performer [phone] [facility] Blood 10/06/2024 8:53 PM CDT 10/06/2024 8:53 PM CDT us Matias Limon MD LAB POCT ORDERABLES - DE VICE Final Result [facility] [address] Department [place] [address] * POCT glucose (10/06/2024 5:08 PM CDT) [facility] Glucose, POC 172 70 - 199 mg/dL Comment: For Glucose values <35 mg/dl when Hematocrit is >60 mg/dl,the test may not accurately detect significant hypoglycemia,and testing in the Laboratory should be considered if clinically indicated. POC Performer [phone] [facility] Blood 10/06/2024 5:08 PM CDT 10/06/2024 5:08 PM CDT us Matias Limon MD LAB POCT ORDERABLES - DE VICE Final Result [facility] [address] Department [place] [address] * XR Chest 1 Vw (10/06/2024 1:28 PM CDT) Anatomical Region Laterality Modality Body, Chest N/A Computed Radiogr aphy 10/06/2024 5:34 PM CDT Impressions 10/06/2024 5:34 PM CDT FINDINGS/IMPRESSION: Right IJ central venous catheter tip terminates in the superior cava atrial junction. The sternotomy wires are unchanged. Retrocardiac opacities unchanged. Small bilateral pleural effusions likely present. No new focal consolidation. No pneumothorax. Postsurgical widening of the cardiomediastinum is stable. Electronically signed by: Judson Wolf M.D. Narrative 10/06/2024 5:34 PM CDT EXAMINATION: XR CHEST 1 VIEW HISTORY: chest tube removal COMPARISON: 10/06/2024 Procedure Note Judson Germain MD - 10/06/2024 EXAMINATION: XR CHEST 1 VIEW HISTORY: chest tube removal COMPARISON: 10/06/2024 IMPRESSION: FINDINGS/IMPRESSION: Right IJ central venous catheter tip terminates in the superior cava atrial junction. The sternotomy wires are unchanged. Retrocardiac opacities unchanged. Small bilateral pleural effusions likely present. No new focal consolidation. No pneumothorax. Postsurgical widening of the cardiomediastinum is stable. Electronically signed by: Judson Wolf M.D. Viola RAMOS IMG XR PROCEDURES Final Result * POCT glucose (10/06/2024 12:22 PM CDT) Glucose, POC 161 70 - 199 mg/dL Comment: For Glucose values <35 mg/dl when Hematocrit is >60 mg/dl,the test may not accurately detect significant hypoglycemia,and testing in the Laboratory should be considered if clinically indicated. POC Performer [id number] [facility] Blood 10/06/2024 12:2 2 PM CDT 10/06/2024 12:22 PM CDT Matias Limon MD LAB POCT ORDERABLES - DE VICE Final Result Performing Organization Address [facility] Co de Phone Number [facility] [address] [employer] [place], [place] [id number] * POCT glucose (10/06/2024 7:13 AM CDT) Glucose, POC 177 70 - 199 mg/dL Comment: For Glucose values <35 mg/dl when Hematocrit is >60 mg/dl,the test may not accurately detect significant hypoglycemia,and testing in the Laboratory should be considered if clinically indicated. POC Performer [phone] [facility] Blood 10/06/2024 7:13 AM CDT 10/06/2024 7:13 AM CDT Matias Limon MD LAB POCT ORDERABLES - DE VICE Final Result Performing Organization Address City/[facility]/ZIP Co de Phone Number [facility] [address] [facility] [employer] [place], [place] [id number] * XR Chest 1 View - Portable - in AM (10/06/2024 6:16 AM CDT) Anatomical Region Laterality Modality Body, Chest N/A Computed Radiogr aphy 10/06/2024 7:08 AM CDT Impressions 10/06/2024 7:08 AM CDT FINDINGS/IMPRESSION: Sternotomy wires are seen. Right IJ central venous catheter terminates in the superior vena cava. Small bilateral pleural effusions with associated atelectatic changes. No pneumothorax. The cardiomediastinal silhouette is grossly unchanged. Electronically signed by: Judson Wolf M.D. Narrative 10/06/2024 7:08 AM CDT EXAMINATION: XR CHEST 1 VIEW HISTORY: pleural effusion COMPARISON: 10/05/2024 Procedure Note Judson Germain MD - 10/06/2024 EXAMINATION: XR CHEST 1 VIEW HISTORY: pleural effusion COMPARISON: 10/05/2024 IMPRESSION: FINDINGS/IMPRESSION: Sternotomy wires are seen. Right IJ central venous catheter terminates in the superior vena cava. Small bilateral pleural effusions with associated atelectatic changes. No pneumothorax. The cardiomediastinal silhouette is grossly unchanged. Electronically signed by: Judson Wolf M.D. Maxwell Hughes MD IMG XR PROCEDURES Final Result * eGFR (10/06/2024 1:31 AM CDT) eGFR >90 >=60 mL/min/1. 73 m2 Comment: Interpretive Data Reference Interval Normal >/= 90 mL/min/1.73m2 Mildly decreased* 60 - 89 mL/min/1.73m2 Mildly to moderately decreased 45 - 59 mL/min/1.73m2 Moderately to severely decreased 30 - 44 mL/min/1.73m2 Severely decreased 15 - 29 mL/min/1.73m2 Kidney Failure < 15 mL/min/1.73m2 *Relative to young adult level Estimated glomerular filtration rate is determined by the 2020 CKD-EPI equation recommended by the National Kidney Foundation (A Unifying Approach to GFR Estimation: Recommendations of the NKF-ASK Task Force on Reassessing the Inclusion of Race in Diagnosing Kidney Disease, JASN 2020). The CKD-EPI equation should not be used for patients with unstable renal function and has not been validated in children and those over 70. Current interpretive data was last reviewed 2021. Blood 10/06/2024 1:31 AM CDT 10/06/2024 2:28 AM CDT Maxwell Hughes MD LAB BLOOD ORDERABLES Final Res ult Performing Organization Address City/[facility]/ZIP Co de Phone Number [facility] [address] [place] [address] * (ABNORMAL) CBC without differential (10/06/2024 1:31 AM CDT) Pathologist [facility] WBC 7.8 3.8 - 9.9 K/cumm Hgb 9.8(L) 13.0 - 17.5 g/dL [facility] Hct 30.8(L) 38.9 - 50.3 % [facility] Plt 191 150 - 400 K/cumm [facility] MPV 9.4 9.1 - 12.3 fL [facility] RBC 3.03(L) 4.30 - 5.80 M/cumm [facility] MCV 101.7(H) 81.3 - 96.4 fL [facility] MCH 32.3 27.1 - 33.3 pg [facility] MCHC 31.8(L) 32.3 - 35.7 g/dL [facility] RDW CV 13.9 11.1 - 14.9 % [facility] RDW SD 51.0(H) 35.7 - 48.1 fL [facility] NRBC abs 0.00 0.00 - 0.01 K/cumm [facility] Blood 10/06/2024 1:31 AM CDT 10/06/2024 2:28 AM CDT Maxwell Hughes MD LAB BLOOD ORDERABLES Final Res ult [facility] [address] Department [employer] [place] [address] * Magnesium (10/06/2024 1:31 AM CDT) Pathologist [facility] Magnesium 1.7 1.4 - 2.5 mg/dL Blood 10/06/2024 1:31 AM CDT 10/06/2024 2:28 AM CDT Maxwell Hughes MD LAB BLOOD ORDERABLES Final Res ult [facility] [address] Department [place] [address] * (ABNORMAL) Renal function panel (10/06/2024 1:31 AM CDT) [facility] Sodium 134(L) 135 - 145 mmol/L Potassium, pl 3.7 3.3 - 4.9 mmol/L [facility] Chloride 94(L) 97 - 110 mmol/L [facility] CO2 27 22 - 32 mmol/L [facility] Anion gap 13 2 - 15 mmol/L [facility] BUN 18 6 - 25 mg/dL [facility] Creatinine 0.85 0.80 - 1.30 mg/dL [facility] Glucose 157 70 - 199 mg/dL [facility] Comment: Interpretive Data Fasting glucose >/= 126 mg/dl is diagnostic for diabetes. Fasting is defined as no caloric intake for at least 8 hours. Fasting glucose between 100 mg/dl to 125 mg/dl is diagnostic of prediabetes. In a patient with classic symptoms of hyperglycemia or hyperglycemic crisis, a random glucose >/= 200 mg/dl is diagnostic for diabetes. In the absence of unequivocal hyperglycemia, results should be confirmed by repeat testing. The classification and Diagnosis of Diabetes Diabetes Care 202; 46: S19-S40. Current interpretive data was last revised 2022. Calcium 8.8 8.5 - 10.3 mg/dL [facility] Phosphorus, pl 4.2 2.3 - 4.5 mg/dL [facility] Albumin 3.6 3.5 - 5.0 g/dL [facility] Blood 10/06/2024 1:31 AM CDT 10/06/2024 2:28 AM CDT us Maxwell Hughes MD LAB BLOOD ORDERABLES Final Res ult Performing Organization Address [facility]/ZIP Co de Phone Number [facility] [address] Department [place] [address] * (ABNORMAL) POCT glucose (10/05/2024 10:14 PM CDT) Glucose, POC 229(H) 70 - 199 mg/dL Comment: For Glucose values <35 mg/dl when Hematocrit is >60 mg/dl,the test may not accurately detect significant hypoglycemia,and testing in the Laboratory should be considered if clinically indicated. POC Performer [id number] [facility] Blood 10/05/2024 10:1 4 PM CDT 10/05/2024 10:14 PM CDT us Matias Limon MD LAB POCT ORDERABLES - DE VICE Final Result Performing Organization Address [facility] Co de Phone Number [facility] [address] Department [place] [address] * (ABNORMAL) POCT glucose (10/05/2024 5:09 PM CDT) Glucose, POC 241(H) 70 - 199 mg/dL Comment: For Glucose values <35 mg/dl when Hematocrit is >60 mg/dl,the test may not accurately detect significant hypoglycemia,and testing in the Laboratory should be considered if clinically indicated. POC Performer [id number] [facility] Blood 10/05/2024 5:09 PM CDT 10/05/2024 5:09 PM CDT Matias Limon MD LAB POCT ORDERABLES - DE VICE Final Result Performing Organization Address [facility] Co de Phone Number [facility] [address] Department [place] [address] * XR Chest 1 View (10/05/2024 3:01 PM CDT) Anatomical Region Laterality Modality Body, Chest N/A Computed Radiogr aphy 10/05/2024 3:09 PM CDT Impressions 10/05/2024 3:09 PM CDT FINDINGS/IMPRESSION: Sternotomy wires are redemonstrated. Right IJ approach central venous catheter tip terminates in the superior vena cava. Bibasilar atelectatic changes are decreased. No new focal consolidation. No pleural effusion or pneumothorax. The cardiomediastinal silhouette is grossly unchanged. Chronic healed rib fractures are seen. Electronically signed by: Judson Wolf M.D. Narrative 10/05/2024 3:09 PM CDT EXAMINATION: XR CHEST 1 VIEW HISTORY: evaluate for pneumothorax COMPARISON: 10/05/2024 Procedure Note Judson Germain MD - 10/05/2024 EXAMINATION: XR CHEST 1 VIEW HISTORY: evaluate for pneumothorax COMPARISON: 10/05/2024 IMPRESSION: FINDINGS/IMPRESSION: Sternotomy wires are redemonstrated. Right IJ approach central venous catheter tip terminates in the superior vena cava. Bibasilar atelectatic changes are decreased. No new focal consolidation. No pleural effusion or pneumothorax. The cardiomediastinal silhouette is grossly unchanged. Chronic healed rib fractures are seen. Electronically signed by: Judson Wolf M.D. Kike RAMOS IMG XR PROCEDURES Final Resu lt * POCT glucose (10/05/2024 12:22 PM CDT) Glucose, POC 106 70 - 199 mg/dL Comment: For Glucose values <35 mg/dl when Hematocrit is >60 mg/dl,the test may not accurately detect significant hypoglycemia,and testing in the Laboratory should be considered if clinically indicated. POC Performer [id number] [facility] Blood 10/05/2024 12:2 2 PM CDT 10/05/2024 12:22 PM CDT us Matias Limon MD LAB POCT ORDERABLES - DE VICE Final Result Performing Organization Address [facility] Co de Phone Number [facility] [address] [facility] [place] [address] * POCT glucose (10/05/2024 8:04 AM CDT) Glucose, POC 176 70 - 199 mg/dL Comment: For Glucose values <35 mg/dl when Hematocrit is >60 mg/dl,the test may not accurately detect significant hypoglycemia,and testing in the Laboratory should be considered if clinically indicated. POC Performer [id number] [facility] Blood 10/05/2024 8:04 AM CDT 10/05/2024 8:04 AM CDT Matias Limon MD LAB POCT ORDERABLES - DE VICE Final Result Performing Organization Address [facility] Co de Phone Number [facility] [address] [facility] [place] [address] * XR Chest 1 View - Portable - in AM (10/05/2024 6:01 AM CDT) Anatomical Region Laterality Modality Body, Chest N/A Computed Radiogr aphy 10/05/2024 7:27 AM CDT Impressions 10/05/2024 7:27 AM CDT Comparison is made to prior chest radiograph dated 10/04/2024. Median sternotomy wires are unchanged compared to prior study. Tip of a right internal jugular central venous catheter terminates in the superior vena cava. No significant change in small bilateral pleural effusions with associated mild atelectasis. No pneumothorax. Stable cardiomegaly. There are chronic right rib fractures. Electronically signed by: Jewels Burger M.D. Narrative 10/05/2024 7:27 AM CDT EXAMINATION: XR CHEST 1 VIEW Procedure Note Jewels Burger MD - 10/05/2024 EXAMINATION: XR CHEST 1 VIEW IMPRESSION: Comparison is made to prior chest radiograph dated 10/04/2024. Median sternotomy wires are unchanged compared to prior study. Tip of a right internal jugular central venous catheter terminates in the superior vena cava. No significant change in small bilateral pleural effusions with associated mild atelectasis. No pneumothorax. Stable cardiomegaly. There are chronic right rib fractures. Electronically signed by: Jewels Burger M.D. Maxwell Hughes MD IMG XR PROCEDURES Final Result * eGFR (10/05/2024 12:56 AM CDT) eGFR >90 >=60 mL/min/1. 73 m2 Comment: Interpretive Data Reference Interval Normal >/= 90 mL/min/1.73m2 Mildly decreased* 60 - 89 mL/min/1.73m2 Mildly to moderately decreased 45 - 59 mL/min/1.73m2 Moderately to severely decreased 30 - 44 mL/min/1.73m2 Severely decreased 15 - 29 mL/min/1.73m2 Kidney Failure < 15 mL/min/1.73m2 *Relative to young adult level Estimated glomerular filtration rate is determined by the 2020 CKD-EPI equation recommended by the National Kidney Foundation (A Unifying Approach to GFR Estimation: Recommendations of the NKF-ASK Task Force on Reassessing the Inclusion of Race in Diagnosing Kidney Disease, JASN 2020). The CKD-EPI equation should not be used for patients with unstable renal function and has not been validated in children and those over 70. Current interpretive data was last reviewed 2021. Blood 10/05/2024 12:5 6 AM CDT 10/05/2024 1:14 AM CDT Maxwell Hughes MD LAB BLOOD ORDERABLES Final Res ult [facility] [address] Department [place] [address] * (ABNORMAL) CBC without differential (10/05/2024 12:56 AM CDT) Pathologist [facility] WBC 9.3 3.8 - 9.9 K/cumm Hgb 11.0(L) 13.0 - 17.5 g/dL [facility] Hct 33.5(L) 38.9 - 50.3 % [facility] Plt 159 150 - 400 K/cumm [facility] MPV 9.4 9.1 - 12.3 fL [facility] RBC 3.34(L) 4.30 - 5.80 M/cumm [facility] MCV 100.3(H) 81.3 - 96.4 fL [facility] MCH 32.9 27.1 - 33.3 pg [facility] MCHC 32.8 32.3 - 35.7 g/dL [facility] RDW CV 13.9 11.1 - 14.9 % [facility] RDW SD 51.2(H) 35.7 - 48.1 fL [facility] NRBC abs 0.00 0.00 - 0.01 K/cumm [facility] Blood 10/05/2024 12:5 6 AM CDT 10/05/2024 1:14 AM CDT Maxwell Hughes MD LAB BLOOD ORDERABLES Final Res ult Performing Organization Address City/[facility]/ZIP Co de Phone Number [facility] [address] [place] [address] * Type and screen (10/05/2024 12:56 AM CDT) Kin, indirect Negative ABO Rh A Positive [facility] Blood 10/05/2024 12:5 6 AM CDT 10/05/2024 1:03 AM CDT Narrative [facility] - 10/05/2024 1:46 AM CDT Has the patient had Daratumumab or Isatuximab in the past 6 months?->Unknown Maxwell Hughes MD LAB BLOOD BANK TEST ORDERABLES Final Result [facility] [address] Department [employer] [place] [address] * Magnesium (10/05/2024 12:56 AM CDT) Pathologist [facility] Magnesium 1.9 1.4 - 2.5 mg/dL Blood 10/05/2024 12:5 6 AM CDT 10/05/2024 1:14 AM CDT Maxwell Hughes MD LAB BLOOD ORDERABLES Final Res ult [facility] [address] Department [place] [address] * (ABNORMAL) Renal function panel (10/05/2024 12:56 AM CDT) Pathologist [facility] Sodium 135 135 - 145 mmol/L Potassium, pl 3.7 3.3 - 4.9 mmol/L [facility] Chloride 96(L) 97 - 110 mmol/L [facility] CO2 24 22 - 32 mmol/L [facility] Anion gap 15 2 - 15 mmol/L [facility] BUN 12 6 - 25 mg/dL [facility] Creatinine 0.72(L) 0.80 - 1.30 mg/dL [facility] Glucose 188 70 - 199 mg/dL [facility] Comment: Interpretive Data Fasting glucose >/= 126 mg/dl is diagnostic for diabetes. Fasting is defined as no caloric intake for at least 8 hours. Fasting glucose between 100 mg/dl to 125 mg/dl is diagnostic of prediabetes. In a patient with classic symptoms of hyperglycemia or hyperglycemic crisis, a random glucose >/= 200 mg/dl is diagnostic for diabetes. In the absence of unequivocal hyperglycemia, results should be confirmed by repeat testing. The classification and Diagnosis of Diabetes Diabetes Care 202; 46: S19-S40. Current interpretive data was last revised 2022. Calcium 9.1 8.5 - 10.3 mg/dL [facility] Phosphorus, pl 3.4 2.3 - 4.5 mg/dL [facility] Albumin 3.7 3.5 - 5.0 g/dL [facility] Blood 10/05/2024 12:5 6 AM CDT 10/05/2024 1:14 AM CDT Maxwell Hughes MD LAB BLOOD ORDERABLES Final Res ult Performing Organization Address City/[facility]/ZIP Co de Phone Number [facility] [address] [place] [address] * (ABNORMAL) POCT glucose (10/04/2024 8:58 PM CDT) Glucose, POC 281(H) 70 - 199 mg/dL Comment: For Glucose values <35 mg/dl when Hematocrit is >60 mg/dl,the test may not accurately detect significant hypoglycemia,and testing in the Laboratory should be considered if clinically indicated. POC Performer [id number] [facility] Blood 10/04/2024 8:58 PM CDT 10/04/2024 8:58 PM CDT us Matias Limon MD LAB POCT ORDERABLES - DE VICE Final Result Performing Organization Address [facility] Co de Phone Number [facility] [address] [facility] [place] [address] * (ABNORMAL) POCT glucose (10/04/2024 8:19 PM CDT) Glucose, POC 317(H) 70 - 199 mg/dL Comment: For Glucose values <35 mg/dl when Hematocrit is >60 mg/dl,the test may not accurately detect significant hypoglycemia,and testing in the Laboratory should be considered if clinically indicated. POC Performer [id number] [facility] Blood 10/04/2024 8:19 PM CDT 10/04/2024 8:19 PM CDT us Matias Limon MD LAB POCT ORDERABLES - DE VICE Final Result Performing Organization Address City/[facility]/ZIP Co de Phone Number [facility] [address] [place] [address] * (ABNORMAL) POCT glucose (10/04/2024 5:20 PM CDT) Glucose, POC 227(H) 70 - 199 mg/dL Comment: For Glucose values <35 mg/dl when Hematocrit is >60 mg/dl,the test may not accurately detect significant hypoglycemia,and testing in the Laboratory should be considered if clinically indicated. POC Performer [id number] [facility] Blood 10/04/2024 5:20 PM CDT 10/04/2024 5:20 PM CDT Matias Limon MD LAB POCT ORDERABLES - DE VICE Final Result Performing Organization Address [facility] Co de Phone Number [facility] [address] [place] [address] * (ABNORMAL) POCT glucose (10/04/2024 12:34 PM CDT) Glucose, POC 236(H) 70 - 199 mg/dL Comment: For Glucose values <35 mg/dl when Hematocrit is >60 mg/dl,the test may not accurately detect significant hypoglycemia,and testing in the Laboratory should be considered if clinically indicated. POC Performer [id number] [facility] Blood 10/04/2024 12:3 4 PM CDT 10/04/2024 12:34 PM CDT Matias Limon MD LAB POCT ORDERABLES - DE VICE Final Result Performing Organization Address City/[facility]/ZIP Co de Phone Number [facility] [address] [place] [address] * (ABNORMAL) POCT glucose (10/04/2024 8:17 AM CDT) Glucose, POC 212(H) 70 - 199 mg/dL Comment: For Glucose values <35 mg/dl when Hematocrit is >60 mg/dl,the test may not accurately detect significant hypoglycemia,and testing in the Laboratory should be considered if clinically indicated. POC Performer [id number] [facility] Blood 10/04/2024 8:17 AM CDT 10/04/2024 8:17 AM CDT us Matias Limon MD LAB POCT ORDERABLES - DE VICE Final Result [facility] [address] Department [place] [address] * XR Chest 1 View - Portable - in AM (10/04/2024 5:47 AM CDT) Anatomical Region Laterality Modality Body, Chest N/A Computed Radiogr aphy 10/04/2024 8:12 AM CDT Impressions 10/04/2024 8:12 AM CDT Right internal jugular central venous catheter terminates in the upper superior vena cava. Median sternotomy. Mild enlargement of the heart. Left greater than right bibasilar subsegmental atelectasis, slightly improved from the prior examination. Trace bilateral pleural effusions, unchanged. No pneumothorax. Electronically signed by: Neil Garay M.D. Narrative 10/04/2024 8:12 AM CDT PORTABLE CHEST RADIOGRAPH INDICATION: pleural effusion COMPARISON: 10/03/2024 VIEWS: 1 Procedure Note Neil Garay MD - 10/04/2024 PORTABLE CHEST RADIOGRAPH INDICATION: pleural effusion COMPARISON: 10/03/2024 VIEWS: 1 IMPRESSION: Right internal jugular central venous catheter terminates in the upper superior vena cava. Median sternotomy. Mild enlargement of the heart. Left greater than right bibasilar subsegmental atelectasis, slightly improved from the prior examination. Trace bilateral pleural effusions, unchanged. No pneumothorax. Electronically signed by: Neil Garay M.D. us Maxwell Hughes MD IMG XR PROCEDURES Final Result * eGFR (10/04/2024 12:27 AM CDT) eGFR >90 >=60 mL/min/1. 73 m2 Comment: Interpretive Data Reference Interval Normal >/= 90 mL/min/1.73m2 Mildly decreased* 60 - 89 mL/min/1.73m2 Mildly to moderately decreased 45 - 59 mL/min/1.73m2 Moderately to severely decreased 30 - 44 mL/min/1.73m2 Severely decreased 15 - 29 mL/min/1.73m2 Kidney Failure < 15 mL/min/1.73m2 *Relative to young adult level Estimated glomerular filtration rate is determined by the 2020 CKD-EPI equation recommended by the National Kidney Foundation (A Unifying Approach to GFR Estimation: Recommendations of the NKF-ASK Task Force on Reassessing the Inclusion of Race in Diagnosing Kidney Disease, JASN 2020). The CKD-EPI equation should not be used for patients with unstable renal function and has not been validated in children and those over 70. Current interpretive data was last reviewed 2021. Blood 10/04/2024 12:2 7 AM CDT 10/04/2024 1:17 AM CDT us Maxwell Hughes MD LAB BLOOD ORDERABLES Final Res ult [facility] [address] Department [place] [address] * (ABNORMAL) CBC without differential (10/04/2024 12:27 AM CDT) WBC 10.1(H) 3.8 - 9.9 K/cumm Hgb 10.2(L) 13.0 - 17.5 g/dL [facility] Hct 32.0(L) 38.9 - 50.3 % [facility] Plt 105(L) 150 - 400 K/cumm [facility] MPV 9.4 9.1 - 12.3 fL [facility] RBC 3.08(L) 4.30 - 5.80 M/cumm [facility] MCV 103.9(H) 81.3 - 96.4 fL [facility] MCH 33.1 27.1 - 33.3 pg [facility] MCHC 31.9(L) 32.3 - 35.7 g/dL [facility] RDW CV 14.3 11.1 - 14.9 % [facility] RDW SD 54.4(H) 35.7 - 48.1 fL [facility] NRBC abs 0.00 0.00 - 0.01 K/cumm [facility] Blood 10/04/2024 12:2 7 AM CDT 10/04/2024 1:17 AM CDT Maxwell Hughes MD LAB BLOOD ORDERABLES Final Res ult Performing Organization Address City/[facility]/ZIP Co de Phone Number [facility] [address] [employer] [place] [address] * Magnesium (10/04/2024 12:27 AM CDT) [facility] Magnesium 1.8 1.4 - 2.5 mg/dL Blood 10/04/2024 12:2 7 AM CDT 10/04/2024 1:17 AM CDT Maxwell Hughes MD LAB BLOOD ORDERABLES Final Res ult Performing Organization Address [facility] Co de Phone Number [facility] [address] [employer] [place], [place] [phone] * (ABNORMAL) Renal function panel (10/04/2024 12:27 AM CDT) Pathologist [facility] Sodium 131(L) 135 - 145 mmol/L Potassium, pl 4.4 3.3 - 4.9 mmol/L [facility] Chloride 97 97 - 110 mmol/L [facility] CO2 22 22 - 32 mmol/L [facility] Anion gap 12 2 - 15 mmol/L [facility] BUN 11 6 - 25 mg/dL [facility] Creatinine 0.75(L) 0.80 - 1.30 mg/dL [facility] Glucose 214(H) 70 - 199 mg/dL [facility] Comment: Interpretive Data Fasting glucose >/= 126 mg/dl is diagnostic for diabetes. Fasting is defined as no caloric intake for at least 8 hours. Fasting glucose between 100 mg/dl to 125 mg/dl is diagnostic of prediabetes. In a patient with classic symptoms of hyperglycemia or hyperglycemic crisis, a random glucose >/= 200 mg/dl is diagnostic for diabetes. In the absence of unequivocal hyperglycemia, results should be confirmed by repeat testing. The classification and Diagnosis of Diabetes Diabetes Care 2021; 46: S19-S40. Current interpretive data was last revised 2022. Calcium 8.4(L) 8.5 - 10.3 mg/dL [facility] Phosphorus, pl 2.6 2.3 - 4.5 mg/dL [facility] Albumin 3.4(L) 3.5 - 5.0 g/dL [facility] Blood 10/04/2024 12:2 7 AM CDT 10/04/2024 1:17 AM CDT us Maxwell Hughes MD LAB BLOOD ORDERABLES Final Res ult Performing Organization Address City/[facility]/ZIP Co de Phone Number [facility] [address] Department [place] [address] * (ABNORMAL) POCT glucose (10/03/2024 8:44 PM CDT) [facility] Glucose, POC 233(H) 70 - 199 mg/dL Comment: For Glucose values <35 mg/dl when Hematocrit is >60 mg/dl,the test may not accurately detect significant hypoglycemia,and testing in the Laboratory should be considered if clinically indicated. POC Performer [id number] [facility] Blood 10/03/2024 8:44 PM CDT 10/03/2024 8:44 PM CDT us Matias Limon MD LAB POCT ORDERABLES - DE VICE Final Result Performing Organization Address City/[facility]/ZIP Co de Phone Number [facility] [address] Department [place] [address] * XR Chest 1 View (10/03/2024 6:35 PM CDT) Anatomical Region Laterality Modality Body, Chest N/A Computed Radiogr aphy 10/03/2024 6:40 PM CDT Impressions 10/03/2024 6:40 PM CDT Right IJ central line with distal tip terminating in the upper/mid SVC. Status post median sternotomy. Thoracostomy tubes overlying the mediastinum. The cardiomediastinal silhouette is stable in appearance. Bibasilar atelectasis. Mild prominence of interstitial markings bilaterally which can be seen in the setting of pulmonary edema. No focal pulmonary opacification, pleural effusion, or pneumothorax. Mild interval decrease in subcutaneous emphysema overlying the neck. No acute osseous findings. Remote right-sided rib fractures. Electronically signed by: Cassandra Villeda M.D. Narrative 10/03/2024 6:40 PM CDT EXAMINATION: XR CHEST 1 VIEW HISTORY: Upper chest subcutaneous air COMPARISON: Chest radiograph, 10/03/2024 at 5:48 AM. Procedure Note Cassandra Villeda MD - 10/03/2024 EXAMINATION: XR CHEST 1 VIEW HISTORY: Upper chest subcutaneous air COMPARISON: Chest radiograph, 10/03/2024 at 5:48 AM. IMPRESSION: Right IJ central line with distal tip terminating in the upper/mid SVC. Status post median sternotomy. Thoracostomy tubes overlying the mediastinum. The cardiomediastinal silhouette is stable in appearance. Bibasilar atelectasis. Mild prominence of interstitial markings bilaterally which can be seen in the setting of pulmonary edema. No focal pulmonary opacification, pleural effusion, or pneumothorax. Mild interval decrease in subcutaneous emphysema overlying the neck. No acute osseous findings. Remote right-sided rib fractures. Electronically signed by: Cassandra Villeda M.D. Kike RAMOS IMG XR PROCEDURES Final Resu lt * (ABNORMAL) POCT glucose (10/03/2024 5:27 PM CDT) Pathologist [facility] Glucose, POC 218(H) 70 - 199 mg/dL Comment: For Glucose values <35 mg/dl when Hematocrit is >60 mg/dl,the test may not accurately detect significant hypoglycemia,and testing in the Laboratory should be considered if clinically indicated. POC Performer [id number] [facility] Blood 10/03/2024 5:27 PM CDT 10/03/2024 5:27 PM CDT Matias Limon MD LAB POCT ORDERABLES - DE VICE Final Result Performing Organization Address [facility] Co de Phone Number [facility] [address] [facility] [place] [address] * (ABNORMAL) POCT glucose (10/03/2024 12:21 PM CDT) Glucose, POC 202(H) 70 - 199 mg/dL Comment: For Glucose values <35 mg/dl when Hematocrit is >60 mg/dl,the test may not accurately detect significant hypoglycemia,and testing in the Laboratory should be considered if clinically indicated. POC Performer [id number] [facility] Blood 10/03/2024 12:2 1 PM CDT 10/03/2024 12:21 PM CDT Matias Limon MD LAB POCT ORDERABLES - DE VICE Final Result Performing Organization Address [facility] Co de Phone Number [facility] [address] [facility] [place] [address] * POCT glucose (10/03/2024 7:56 AM CDT) Glucose, POC 125 70 - 199 mg/dL Comment: For Glucose values <35 mg/dl when Hematocrit is >60 mg/dl,the test may not accurately detect significant hypoglycemia,and testing in the Laboratory should be considered if clinically indicated. POC Performer [id number] [facility] Blood 10/03/2024 7:56 AM CDT 10/03/2024 7:56 AM CDT Matias Limon MD LAB POCT ORDERABLES - DE VICE Final Result Performing Organization Address [facility]/State/[facility] Co de Phone Number [facility] [address] Department [place] [address] * XR Chest 1 View - Portable - in AM (10/03/2024 6:13 AM CDT) Anatomical Region Laterality Modality Body, Chest N/A Computed Radiogr aphy 10/03/2024 8:15 AM CDT Impressions 10/03/2024 8:15 AM CDT Comparison is made to chest radiograph of 10/03/2024 at 5:59 AM. Portable radiograph, anteroposterior view demonstrates stable moderate enlargement of cardiac silhouette. Small right pleural effusion tracks into the oblique fissure. There is subsegmental atelectasis in bilateral lower lobes. No pulmonary edema or pneumothorax. There are 2 inferior approach catheters projecting over the heart which are likely pericardial drains. The [place] catheter has been removed. The tip of the right internal jugular central venous catheter projects over the superior vena cava. Venous sternotomy wires are stable. Electronically signed by: Yuan Cook M.D. Narrative 10/03/2024 8:15 AM CDT EXAMINATION: 1 view chest radiograph Procedure Note Yuan Cook MD - 10/03/2024 EXAMINATION: 1 view chest radiograph IMPRESSION: Comparison is made to chest radiograph of 10/03/2024 at 5:59 AM. Portable radiograph, anteroposterior view demonstrates stable moderate enlargement of cardiac silhouette. Small right pleural effusion tracks into the oblique fissure. There is subsegmental atelectasis in bilateral lower lobes. No pulmonary edema or pneumothorax. There are 2 inferior approach catheters projecting over the heart which are likely pericardial drains. The [place] catheter has been removed. The tip of the right internal jugular central venous catheter projects over the superior vena cava. Venous sternotomy wires are stable. Electronically signed by: Yuan Cook M.D. Maxwell Hughes MD IMG XR PROCEDURES Final Result * POCT glucose (10/03/2024 4:56 AM CDT) Glucose, POC 112 70 - 199 mg/dL Comment: For Glucose values <35 mg/dl when Hematocrit is >60 mg/dl,the test may not accurately detect significant hypoglycemia,and testing in the Laboratory should be considered if clinically indicated. POC Performer [id number] [facility] Blood 10/03/2024 4:5 6 AM CDT 10/03/2024 4:56 AM CDT Matias Limon MD LAB POCT ORDERABLES - DE VICE Final Result Performing Organization Address [facility] Co de Phone Number [facility] [address] [facility] [employer] [place], [place] [phone] * POCT glucose (10/03/2024 3:18 AM CDT) Glucose, POC 84 70 - 199 mg/dL Comment: For Glucose values <35 mg/dl when Hematocrit is >60 mg/dl,the test may not accurately detect significant hypoglycemia,and testing in the Laboratory should be considered if clinically indicated. POC Performer [id number] [facility] Blood 10/03/2024 3:18 AM CDT 10/03/2024 3:18 AM CDT Matias Limon MD LAB POCT ORDERABLES - DE VICE Final Result Performing Organization Address [facility] Co de Phone Number [facility] [address] [facility] [place] [address] * POCT glucose (10/03/2024 2:15 AM CDT) Glucose, POC 112 70 - 199 mg/dL Comment: For Glucose values <35 mg/dl when Hematocrit is >60 mg/dl,the test may not accurately detect significant hypoglycemia,and testing in the Laboratory should be considered if clinically indicated. POC Performer [id number] [facility] Blood 10/03/2024 2:15 AM CDT 10/03/2024 2:15 AM CDT Matias Limon MD LAB POCT ORDERABLES - DE VICE Final Result Performing Organization Address [facility] Co de Phone Number [facility] [address] Department [employer] [place] [address] * eGFR (10/02/2024 11:38 PM CDT) eGFR >90 >=60 mL/min/1. 73 m2 Comment: Interpretive Data Reference Interval Normal >/= 90 mL/min/1.73m2 Mildly decreased* 60 - 89 mL/min/1.73m2 Mildly to moderately decreased 45 - 59 mL/min/1.73m2 Moderately to severely decreased 30 - 44 mL/min/1.73m2 Severely decreased 15 - 29 mL/min/1.73m2 Kidney Failure < 15 mL/min/1.73m2 *Relative to young adult level Estimated glomerular filtration rate is determined by the 2020 CKD-EPI equation recommended by the National Kidney Foundation (A Unifying Approach to GFR Estimation: Recommendations of the NKF-ASK Task Force on Reassessing the Inclusion of Race in Diagnosing Kidney Disease, JASN 2020). The CKD-EPI equation should not be used for patients with unstable renal function and has not been validated in children and those over 70. Current interpretive data was last reviewed 2021. Blood 10/02/2024 11:3 8 PM CDT 10/02/2024 11:47 PM CDT Maxwell Hughes MD LAB BLOOD ORDERABLES Final Res ult Performing Organization Address [facility]/ZIP Co de Phone Number [facility] [address] Department of [employer] [place], [place] [phone] * Calcium, ionized (10/02/2024 11:38 PM CDT) Calcium, Ionized 4.73 4.50 - 5.10 mg/dL Blood 10/02/2024 11:3 8 PM CDT 10/02/2024 11:45 PM CDT Maxwell Hughes MD LAB BLOOD ORDERABLES Final Res ult [facility] [address] [place] [address] * (ABNORMAL) CBC without differential (10/02/2024 11:38 PM CDT) WBC 10.6(H) 3.8 - 9.9 K/cumm Hgb 10.5(L) 13.0 - 17.5 g/dL [facility] Hct 33.1(L) 38.9 - 50.3 % [facility] Plt 86(L) 150 - 400 K/cumm [facility] MPV 9.3 9.1 - 12.3 fL [facility] RBC 3.20(L) 4.30 - 5.80 M/cumm [facility] MCV 103.4(H) 81.3 - 96.4 fL [facility] MCH 32.8 27.1 - 33.3 pg [facility] MCHC 31.7(L) 32.3 - 35.7 g/dL [facility] RDW CV 14.3 11.1 - 14.9 % [facility] RDW SD 54.0(H) 35.7 - 48.1 fL [facility] NRBC abs 0.00 0.00 - 0.01 K/cumm [facility] Blood 10/02/2024 11:3 8 PM CDT 10/02/2024 11:47 PM CDT Maxwell Hughes MD LAB BLOOD ORDERABLES Final Res ult [facility] [address] Department [employer] [place], [place] [id number] * Magnesium (10/02/2024 11:38 PM CDT) Magnesium 1.9 1.4 - 2.5 mg/dL Blood 10/02/2024 11:3 8 PM CDT 10/02/2024 11:47 PM CDT Maxwell Hughes MD LAB BLOOD ORDERABLES Final Res ult Performing Organization Address City/[facility]/ZIP Co de Phone Number [facility] [address] [place] [address] * Renal function panel (10/02/2024 11:38 PM CDT) Sodium 137 135 - 145 mmol/L Potassium, pl 4.2 3.3 - 4.9 mmol/L [facility] Chloride 102 97 - 110 mmol/L [facility] CO2 22 22 - 32 mmol/L [facility] Anion gap 13 2 - 15 mmol/L [facility] BUN 14 6 - 25 mg/dL [facility] Creatinine 0.83 0.80 - 1.30 mg/dL [facility] Glucose 172 70 - 199 mg/dL [facility] Comment: Interpretive Data Fasting glucose >/= 126 mg/dl is diagnostic for diabetes. Fasting is defined as no caloric intake for at least 8 hours. Fasting glucose between 100 mg/dl to 125 mg/dl is diagnostic of prediabetes. In a patient with classic symptoms of hyperglycemia or hyperglycemic crisis, a random glucose >/= 200 mg/dl is diagnostic for diabetes. In the absence of unequivocal hyperglycemia, results should be confirmed by repeat testing. The classification and Diagnosis of Diabetes Diabetes Care 2021; 46: S19-S40. Current interpretive data was last revised 2022. Calcium 8.5 8.5 - 10.3 mg/dL [facility] Phosphorus, pl 2.8 2.3 - 4.5 mg/dL [facility] Albumin 3.9 3.5 - 5.0 g/dL [facility] Blood 10/02/2024 11:3 8 PM CDT 10/02/2024 11:47 PM CDT Maxwell Hughes MD LAB BLOOD ORDERABLES Final Res ult Performing Organization Address City/[facility]/ZIP Co de Phone Number [facility] [address] [employer] [place], [place] [phone] * POCT glucose (10/02/2024 11:35 PM CDT) Glucose, POC 172 70 - 199 mg/dL Comment: For Glucose values <35 mg/dl when Hematocrit is >60 mg/dl,the test may not accurately detect significant hypoglycemia,and testing in the Laboratory should be considered if clinically indicated. POC Performer [id number] [facility] Blood 10/02/2024 11:3 5 PM CDT 10/02/2024 11:35 PM CDT Matias Limon MD LAB POCT ORDERABLES - DE VICE Final Result Performing Organization Address [facility] Co de Phone Number [facility] [address] [employer] [place], [place] [id number] * (ABNORMAL) POCT glucose (10/02/2024 10:12 PM CDT) Glucose, POC 215(H) 70 - 199 mg/dL Comment: For Glucose values <35 mg/dl when Hematocrit is >60 mg/dl,the test may not accurately detect significant hypoglycemia,and testing in the Laboratory should be considered if clinically indicated. POC Performer [id number] [facility] Blood 10/02/2024 10:1 2 PM CDT 10/02/2024 10:12 PM CDT Matias Limon MD LAB POCT ORDERABLES - DE VICE Final Result Performing Organization Address [facility] Co de Phone Number [facility] [address] [facility] [employer] [place], [place] [phone] * (ABNORMAL) POCT glucose (10/02/2024 8:46 PM CDT) Glucose, POC 221(H) 70 - 199 mg/dL Comment: For Glucose values <35 mg/dl when Hematocrit is >60 mg/dl,the test may not accurately detect significant hypoglycemia,and testing in the Laboratory should be considered if clinically indicated. POC Performer [id number] [facility] Blood 10/02/2024 8:46 PM CDT 10/02/2024 8:46 PM CDT Matias Limon MD LAB POCT ORDERABLES - DE VICE Final Result Performing Organization Address [facility] Co de Phone Number [facility] [address] Department [place] [address] * Critical Care (10/02/2024 7:44 PM CDT) Narrative Kenrick Gutierrez MD - 10/02/2024 7:44 PM CDT Kenrick Gutierrez MD 10/03/2024 9:55 AM Critical Care Performed by: Robyn Trotter NP Authorized by: Robyn Trotter NP CRITICAL CARE: Team: [facility] CT Shift: PM Level of Billing: Subsequent Hospital Visit Level 3 My time spent with this patient was 60 minutes: Critical Provider Statement: I have seen and examined the patient on this day of service. I have reviewed and confirmed the history, physical exam, laboratory, and radiographic data as documented in the ICU note. I have reviewed and discussed my treatment plan with the patient's team and other medical/men's custom hair piece consultant staff. This time was in addition to and separate from care provided by other practitioners on this day of service. Robyn Trotter [facility]BEDSIDE ANMOL ENGLISH Final Result * POCT glucose (10/02/2024 5:07 PM CDT) [facility] Glucose, POC 128 70 - 199 mg/dL Comment: For Glucose values <35 mg/dl when Hematocrit is >60 mg/dl,the test may not accurately detect significant hypoglycemia,and testing in the Laboratory should be considered if clinically indicated. POC Performer [id number] [facility] Blood 10/02/2024 5:07 PM CDT 10/02/2024 5:07 PM CDT Matias Limon MD LAB POCT ORDERABLES - DE VICE Final Result Performing Organization Address [facility] Co de Phone Number [facility] [address] [facility] [place] [address] * POCT glucose (10/02/2024 4:02 PM CDT) Glucose, POC 119 70 - 199 mg/dL Comment: For Glucose values <35 mg/dl when Hematocrit is >60 mg/dl,the test may not accurately detect significant hypoglycemia,and testing in the Laboratory should be considered if clinically indicated. POC Performer [id number] [facility] Blood 10/02/2024 4:02 PM CDT 10/02/2024 4:02 PM CDT us Matias Limon MD LAB POCT ORDERABLES - DE VICE Final Result Performing Organization Address [facility] de Phone Number [facility] [address] [facility] [place] [address] * POCT glucose (10/02/2024 2:08 PM CDT) Glucose, POC 199 70 - 199 mg/dL Comment: For Glucose values <35 mg/dl when Hematocrit is >60 mg/dl,the test may not accurately detect significant hypoglycemia,and testing in the Laboratory should be considered if clinically indicated. POC Performer [id number] [facility] Blood 10/02/2024 2:08 PM CDT 10/02/2024 2:08 PM CDT Matias Limon MD LAB POCT ORDERABLES - DE VICE Final Result Performing Organization Address [facility] Co de Phone Number [facility] [address] [place] [address] * Critical Care (10/02/2024 1:30 PM CDT) Narrative Compa Ruffin MD - 10/02/2024 1:30 PM CDT Compa Ruffin MD 10/19/2024 4:48 PM Critical Care Performed by: Compa Ruffin MD Authorized by: Compa Ruffin MD CRITICAL CARE: Team: [facility] CT Shift: AM Level of Billing: Critical Care My time spent with this patient was 45 minutes: Critical Provider Statement: I have seen and examined the patient on this day of service. I have reviewed and confirmed the history, physical exam, laboratory and radiologic data as documented in the signed ICU note. I have reviewed and discussed my treatment plan with the ICU team and other medical/men's custom hair piece consultant staff, making frequent assessments and decisions regarding this patient's complex medical care. Critical Care time was exclusive of time spent performing separately billed procedures, treating other patients, and teaching. This time was in addition to and separate from critical care provided by other practitioners in my group on this day of service. Critical Care was necessary to treat or prevent imminent or life-threatening deterioration of the following conditions: Acute pain/acute postoperative pain Hypotension Acute respiratory insufficiency and Atelectasis Acute electrolyte derangement and Hypo- or Hyperglycemia Leukocytosis This time was spent by me doing the following: Serial bedside patient exams and Resuscitation with fluids Acute pain control Cardiac pacing, Initiation/active titration of vasoactive medications and Initiation/active titration of anti-arrhythmic or rate controlling agent Active and frequent reassessment of respiratory status and oxygen requirements and Non-invasive positive pressure ventilator management Active and frequent monitoring of intake/output and volumen status and Glycemic control Active repletion of electrolytes I spent time reviewing and interpreting data from bedside monitors, laboratory results, and imaging, I spent time discussing the management of this critically ill patient with consultants and the medical staff and I spent time documenting in the medical record Compa Ruffin MD IN CLINIC/BEDSIDE ORDERABLES Final Result * POCT glucose (10/02/2024 12:05 PM CDT) Glucose, POC 78 70 - 199 mg/dL Comment: For Glucose values <35 mg/dl when Hematocrit is >60 mg/dl,the test may not accurately detect significant hypoglycemia,and testing in the Laboratory should be considered if clinically indicated. POC Performer [id number] ADRI[facility] Blood 10/02/2024 12:0 5 PM CDT 10/02/2024 12:05 PM CDT Matias Limon MD LAB POCT ORDERABLES - DE VICE Final Result Performing Organization Address [facility] de Phone Number [facility] [address] [facility] [place] [address] * POCT glucose (10/02/2024 10:11 AM CDT) Glucose, POC 133 70 - 199 mg/dL Comment: For Glucose values <35 mg/dl when Hematocrit is >60 mg/dl,the test may not accurately detect significant hypoglycemia,and testing in the Laboratory should be considered if clinically indicated. Blood 10/02/2024 10:1 1 AM CDT 10/02/2024 10:11 AM CDT us Matias Limon MD LAB POCT ORDERABLES - DE VICE Final Result Performing Organization Address [facility] de Phone Number [facility] [address] [facility] [place] [address] * Oxyhemoglobin, central venous (10/02/2024 9:10 AM CDT) Oxyhemoglobin, CV 70.4 % Comment: Interpretive Data No reference range established. Current interpretive data was last revised 2019. Blood 10/02/2024 9:10 AM CDT 10/02/2024 9:36 AM CDT Maxwell Hughes MD LAB BLOOD ORDERABLES Final Res ult Performing Organization Address [facility] Co de Phone Number [facility] [address] [facility] [place] [address] * Oxyhemoglobin, pulmonary artery (10/02/2024 9:07 AM CDT) Oxyhemoglobin, PA 73.8 % Comment: Interpretive Data No reference range established. Current interpretive data was last revised 2019. Blood 10/02/2024 9:07 AM CDT 10/02/2024 9:12 AM CDT us Maxwell Hughes MD LAB BLOOD ORDERABLES Final Res ult Performing Organization Address [facility] Co de Phone Number [facility] [address] Department of [place], [place] [phone] * POCT glucose (10/02/2024 8:13 AM CDT) Glucose, POC 157 70 - 199 mg/dL Comment: For Glucose values <35 mg/dl when Hematocrit is >60 mg/dl,the test may not accurately detect significant hypoglycemia,and testing in the Laboratory should be considered if clinically indicated. Blood 10/02/2024 8:13 AM CDT 10/02/2024 8:13 AM CDT us Matias Limon MD LAB POCT ORDERABLES - DE VICE Final Result Performing Organization Address [facility] Co de Phone Number [facility] [address] [place] [address] * POCT glucose (10/02/2024 7:10 AM CDT) Glucose, POC 125 70 - 199 mg/dL Comment: For Glucose values <35 mg/dl when Hematocrit is >60 mg/dl,the test may not accurately detect significant hypoglycemia,and testing in the Laboratory should be considered if clinically indicated. Blood 10/02/2024 7:10 AM CDT 10/02/2024 7:10 AM CDT Matias Limon MD LAB POCT ORDERABLES - DE VICE Final Result Performing Organization Address [facility] Co de Phone Number [facility] [address] Department of [place], [place] [phone] * XR Chest 1 View - Portable - in AM (10/02/2024 6:37 AM CDT) Anatomical Region Laterality Modality Body, Chest N/A Computed Radiogr aphy 10/02/2024 7:31 AM CDT Impressions 10/02/2024 7:31 AM CDT Comparison 10/01/2024. Endotracheal tube tip is in the proximal thoracic trachea. Median sternotomy wires are aligned. Right internal jugular vein central venous catheter tip is in the proximal superior vena cava. Pulmonary artery catheter tip overlies the main pulmonary artery. Mediastinal/left chest drains are noted. Gastric tube tip is in the stomach. Small lung volumes with mild bibasilar atelectasis but no pulmonary edema or new airspace opacity. No pneumothorax. The heart size is unchanged. Electronically signed by: Jayden Carney M.D. Narrative 10/02/2024 7:31 AM CDT EXAMINATION: 1 view chest radiograph Procedure Note Jayden Carney MD - 10/02/2024 EXAMINATION: 1 view chest radiograph IMPRESSION: Comparison 10/01/2024. Endotracheal tube tip is in the proximal thoracic trachea. Median sternotomy wires are aligned. Right internal jugular vein central venous catheter tip is in the proximal superior vena cava. Pulmonary artery catheter tip overlies the main pulmonary artery. Mediastinal/left chest drains are noted. Gastric tube tip is in the stomach. Small lung volumes with mild bibasilar atelectasis but no pulmonary edema or new airspace opacity. No pneumothorax. The heart size is unchanged. Electronically signed by: Jayden Carney M.D. Maxwell Hughes MD IMG XR PROCEDURES Final Result * Oxyhemoglobin, pulmonary artery (10/02/2024 6:14 AM CDT) Oxyhemoglobin, PA 76.7 % Comment: Interpretive Data No reference range established. Current interpretive data was last revised 2019. Blood 10/02/2024 6:14 AM CDT 10/02/2024 6:18 AM CDT Robyn Trotter NP LAB BLOOD ORDERABLES F inal Result Performing Organization Address [facility] Co de Phone Number [facility] [address] [facility] [place] [address] * POCT glucose (10/02/2024 6:08 AM CDT) Glucose, POC 159 70 - 199 mg/dL Comment: For Glucose values <35 mg/dl when Hematocrit is >60 mg/dl,the test may not accurately detect significant hypoglycemia,and testing in the Laboratory should be considered if clinically indicated. Blood 10/02/2024 6:08 AM CDT 10/02/2024 6:08 AM CDT Matias Limon MD LAB POCT ORDERABLES - DE VICE Final Result Performing Organization Address [facility] Co de Phone Number [facility] [address] [facility] [place] [address] * POCT glucose (10/02/2024 4:07 AM CDT) Glucose, POC 126 70 - 199 mg/dL Comment: For Glucose values <35 mg/dl when Hematocrit is >60 mg/dl,the test may not accurately detect significant hypoglycemia,and testing in the Laboratory should be considered if clinically indicated. Blood 10/02/2024 4:07 AM CDT 10/02/2024 4:07 AM CDT Matias Limon MD LAB POCT ORDERABLES - DE VICE Final Result Performing Organization Address [facility] Co de Phone Number [facility] [address] [facility] [place] [address] * POCT glucose (10/02/2024 3:01 AM CDT) Glucose, POC 105 70 - 199 mg/dL Comment: For Glucose values <35 mg/dl when Hematocrit is >60 mg/dl,the test may not accurately detect significant hypoglycemia,and testing in the Laboratory should be considered if clinically indicated. Blood 10/02/2024 3:01 AM CDT 10/02/2024 3:01 AM CDT Matias Limon MD LAB POCT ORDERABLES - DE VICE Final Result Performing Organization Address [facility] Co de Phone Number [facility] [address] [facility] [place], [place] [phone] * POCT glucose (10/02/2024 2:08 AM CDT) Glucose, POC 110 70 - 199 mg/dL Comment: For Glucose values <35 mg/dl when Hematocrit is >60 mg/dl,the test may not accurately detect significant hypoglycemia,and testing in the Laboratory should be considered if clinically indicated. Blood 10/02/2024 2:08 AM CDT 10/02/2024 2:08 AM CDT Matias Limon MD LAB POCT ORDERABLES - DE VICE Final Result Performing Organization Address [facility] Co ak Phone Number [facility] [address] [facility] [place] [address] * POCT glucose (10/02/2024 1:15 AM CDT) Glucose, POC 116 70 - 199 mg/dL Comment: For Glucose values <35 mg/dl when Hematocrit is >60 mg/dl,the test may not accurately detect significant hypoglycemia,and testing in the Laboratory should be considered if clinically indicated. Blood 10/02/2024 1:15 AM CDT 10/02/2024 1:15 AM CDT Matias Limon MD LAB POCT ORDERABLES - DE VICE Final Result Performing Organization Address [facility] Co de Phone Number [facility] [address] [facility] [place] [address] * eGFR (10/02/2024 12:18 AM CDT) eGFR >90 >=60 mL/min/1. 73 m2 Comment: Interpretive Data Reference Interval Normal >/= 90 mL/min/1.73m2 Mildly decreased* 60 - 89 mL/min/1.73m2 Mildly to moderately decreased 45 - 59 mL/min/1.73m2 Moderately to severely decreased 30 - 44 mL/min/1.73m2 Severely decreased 15 - 29 mL/min/1.73m2 Kidney Failure < 15 mL/min/1.73m2 *Relative to young adult level Estimated glomerular filtration rate is determined by the 2020 CKD-EPI equation recommended by the National Kidney Foundation (A Unifying Approach to GFR Estimation: Recommendations of the NKF-ASK Task Force on Reassessing the Inclusion of Race in Diagnosing Kidney Disease, JASN 2020). The CKD-EPI equation should not be used for patients with unstable renal function and has not been validated in children and those over 70. Current interpretive data was last reviewed 2021. Blood 10/02/2024 12:1 8 AM CDT 10/02/2024 12:27 AM CDT Maxwell Hughes MD LAB BLOOD ORDERABLES Final Res ult Performing Organization Address City/[facility]/ZIP Co de Phone Number [facility] [address] [employer] [place], [place] [phone] * Calcium, ionized (10/02/2024 12:18 AM CDT) Pathologist [facility] Calcium, Ionized 4.52 4.50 - 5.10 mg/dL Blood 10/02/2024 12:1 8 AM CDT 10/02/2024 12:24 AM CDT Maxwell Hughes MD LAB BLOOD ORDERABLES Final Res ult [facility] [address] Department [place] [address] * (ABNORMAL) CBC without differential (10/02/2024 12:18 AM CDT) Pathologist [facility] WBC 18.0(H) 3.8 - 9.9 K/cumm Hgb 12.4(L) 13.0 - 17.5 g/dL [facility] Hct 39.2 38.9 - 50.3 % [facility] Plt 110(L) 150 - 400 K/cumm [facility] MPV 9.4 9.1 - 12.3 fL [facility] RBC 3.86(L) 4.30 - 5.80 M/cumm [facility] MCV 101.6(H) 81.3 - 96.4 fL [facility] MCH 32.1 27.1 - 33.3 pg [facility] MCHC 31.6(L) 32.3 - 35.7 g/dL [facility] RDW CV 13.8 11.1 - 14.9 % [facility] RDW SD 51.6(H) 35.7 - 48.1 fL [facility] NRBC abs 0.00 0.00 - 0.01 K/cumm [facility] Blood 10/02/2024 12:1 8 AM CDT 10/02/2024 12:27 AM CDT Maxwell Hughes MD LAB BLOOD ORDERABLES Final Res ult Performing Organization Address [facility] Co de Phone Number [facility] [address] [employer] [place] [address] * Magnesium (10/02/2024 12:18 AM CDT) [facility] Magnesium 2.0 1.4 - 2.5 mg/dL Blood 10/02/2024 12:1 8 AM CDT 10/02/2024 12:27 AM CDT Maxwell Hughes MD LAB BLOOD ORDERABLES Final Res ult Performing Organization Address [facility] Co de Phone Number [facility] [address] Department [place] [address] * (ABNORMAL) Blood gas, arterial (10/02/2024 12:18 AM CDT) pH, Art 7.38 7.35 - 7.45 PCO2, Arterial 40 35 - 45 mmHg [facility] PO2, Arterial 132(H) 83 - 108 mmHg [facility] HCO3 Art (Calculated) 24 20 - 30 mmol/L [facility] BE, art -1 mmol/L [facility] Comment: Interpretive Data No Reference Range Established Current Interpretive Data was last revised on 2017 O2 Sat Art (Calculated) 99(H) 94 - 98 % [facility] Blood 10/02/2024 12:1 8 AM CDT 10/02/2024 12:24 AM CDT Robyn Trotter NP LAB BLOOD ORDERABLES F inal Result [facility] [address] Department [place] [address] * (ABNORMAL) Renal function panel (10/02/2024 12:18 AM CDT) Pathologist [facility] Sodium 140 135 - 145 mmol/L Potassium, pl 4.4 3.3 - 4.9 mmol/L [facility] Chloride 108 97 - 110 mmol/L [facility] CO2 19(L) 22 - 32 mmol/L [facility] Anion gap 13 2 - 15 mmol/L [facility] BUN 12 6 - 25 mg/dL [facility] Creatinine 0.71(L) 0.80 - 1.30 mg/dL [facility] Glucose 143 70 - 199 mg/dL [facility] Comment: Interpretive Data Fasting glucose >/= 126 mg/dl is diagnostic for diabetes. Fasting is defined as no caloric intake for at least 8 hours. Fasting glucose between 100 mg/dl to 125 mg/dl is diagnostic of prediabetes. In a patient with classic symptoms of hyperglycemia or hyperglycemic crisis, a random glucose >/= 200 mg/dl is diagnostic for diabetes. In the absence of unequivocal hyperglycemia, results should be confirmed by repeat testing. The classification and Diagnosis of Diabetes Diabetes Care 2021; 46: S19-S40. Current interpretive data was last revised 2022. Calcium 8.3(L) 8.5 - 10.3 mg/dL [facility] Phosphorus, pl 3.8 2.3 - 4.5 mg/dL [facility] Albumin 3.8 3.5 - 5.0 g/dL [facility] Blood 10/02/2024 12:1 8 AM CDT 10/02/2024 12:27 AM CDT Maxwell Hughes MD LAB BLOOD ORDERABLES Final Res ult Performing Organization Address [facility] Co de Phone Number [facility] [address] [place] [address] * POCT glucose (10/02/2024 12:15 AM CDT) Glucose, POC 160 70 - 199 mg/dL Comment: For Glucose values <35 mg/dl when Hematocrit is >60 mg/dl,the test may not accurately detect significant hypoglycemia,and testing in the Laboratory should be considered if clinically indicated. Blood 10/02/2024 12:1 5 AM CDT 10/02/2024 12:15 AM CDT Result [facility] Matias Limon MD LAB POCT ORDERABLES - DE VICE Final Result Performing Organization Address [facility] Co de Phone Number [facility] [address] [place] [address] * POCT glucose (10/01/2024 11:18 PM CDT) Glucose, POC 150 70 - 199 mg/dL Comment: For Glucose values <35 mg/dl when Hematocrit is >60 mg/dl,the test may not accurately detect significant hypoglycemia,and testing in the Laboratory should be considered if clinically indicated. Blood 10/01/2024 11:1 8 PM CDT 10/01/2024 11:18 PM CDT Matias Limon MD LAB POCT ORDERABLES - DE VICE Final Result Performing Organization Address [facility] Co de Phone Number [facility] [address] [facility] [place] [address] * POCT glucose (10/01/2024 10:21 PM CDT) Glucose, POC 160 70 - 199 mg/dL Comment: For Glucose values <35 mg/dl when Hematocrit is >60 mg/dl,the test may not accurately detect significant hypoglycemia,and testing in the Laboratory should be considered if clinically indicated. Blood 10/01/2024 10:2 1 PM CDT 10/01/2024 10:21 PM CDT Matias Limon MD LAB POCT ORDERABLES - DE VICE Final Result Performing Organization Address [facility] Co de Phone Number [facility] [address] [facility] [place] [address] * POCT glucose (10/01/2024 9:09 PM CDT) Glucose, POC 166 70 - 199 mg/dL Comment: For Glucose values <35 mg/dl when Hematocrit is >60 mg/dl,the test may not accurately detect significant hypoglycemia,and testing in the Laboratory should be considered if clinically indicated. Blood 10/01/2024 9:09 PM CDT 10/01/2024 9:09 PM CDT us Matias Limon MD LAB POCT ORDERABLES - DE VICE Final Result Performing Organization Address [facility] Co de Phone Number [facility] [address] [facility] [place] [address] * Critical Care (10/01/2024 8:58 PM CDT) Narrative Compa Ruffin MD - 10/01/2024 8:58 PM CDT Compa Ruffin MD 10/11/2024 12:45 PM Critical Care Performed by: Robyn Trotter NP Authorized by: Robyn Trotter NP CRITICAL CARE: Team: [facility] CT Shift: PM Level of Billing: Critical Care My time spent with this patient was 90 minutes: Critical Provider Statement: I have seen and examined the patient on this day of service. I have reviewed and confirmed the history, physical exam, laboratory and radiologic data as documented in the signed ICU note. I have reviewed and discussed my treatment plan with the ICU team and other medical/men's custom hair piece consultant staff, making frequent assessments and decisions regarding this patient's complex medical care. Critical Care time was exclusive of time spent performing separately billed procedures, treating other patients, and teaching. This time was in addition to and separate from critical care provided by other practitioners in my group on this day of service. Critical Care was necessary to treat or prevent imminent or life-threatening deterioration of the following conditions: I spent time reviewing and interpreting data from bedside monitors, laboratory results, and imaging, I spent time discussing the management of this critically ill patient with consultants and the medical staff and I spent time documenting in the medical record Robyn Trotter [employer] IN CLINIC/BEDSIDE ANMOL ENGLISH Final Result * Oxyhemoglobin, pulmonary artery (10/01/2024 8:58 PM CDT) Pathologist Phoebe Oxyhemoglobin, PA 79.2 % Comment: Interpretive Data No reference range established. Current interpretive data was last revised 2019. Blood 10/01/2024 8:58 PM CDT 10/01/2024 9:03 PM CDT Robyn Trotter [employer] LAB BLOOD ORDERABLES F inal Result [facility] [address] Department [place] [address] * POCT glucose (10/01/2024 8:03 PM CDT) Glucose, POC 172 70 - 199 mg/dL Comment: For Glucose values <35 mg/dl when Hematocrit is >60 mg/dl,the test may not accurately detect significant hypoglycemia,and testing in the Laboratory should be considered if clinically indicated. Blood 10/01/2024 8:03 PM CDT 10/01/2024 8:03 PM CDT Matias Limon MD LAB POCT ORDERABLES - DE VICE Final Result Performing Organization Address [facility]/ZIP Co de Phone Number [facility] [address] [place] [address] * (ABNORMAL) Lactate (10/01/2024 6:42 PM CDT) Pathologist [facility] Lactate 2.2(H) 0.7 - 2.0 mmol/L Blood 10/01/2024 6:42 PM CDT 10/01/2024 6:46 PM CDT Robyn Trotter NP LAB BLOOD ORDERABLES F inal Result Performing Organization Address [facility] Co de Phone Number [facility] [address] [place] [address] * (ABNORMAL) Blood gas, arterial (10/01/2024 6:26 PM CDT) pH, Art 7.28(L) 7.35 - 7.45 PCO2, Arterial 39 35 - 45 mmHg [facility] PO2, Arterial 109(H) 83 - 108 mmHg [facility] HCO3 Art (Calculated) 18(L) 20 - 30 mmol/L [facility] BE, art -8 mmol/L [facility] Comment: Interpretive Data No Reference Range Established Current Interpretive Data was last revised on 2017 O2 Sat Art (Calculated) 98 94 - 98 % [facility] Blood 10/01/2024 6:26 PM CDT 10/01/2024 6:29 PM CDT Maxwell Hughes MD LAB BLOOD ORDERABLES Final Res ult Performing Organization Address [facility]/ZIP Co de Phone Number [facility] [address] [facility] [place] [address] * POCT glucose (10/01/2024 5:59 PM CDT) Glucose, POC 120 70 - 199 mg/dL Comment: For Glucose values <35 mg/dl when Hematocrit is >60 mg/dl,the test may not accurately detect significant hypoglycemia,and testing in the Laboratory should be considered if clinically indicated. Blood 10/01/2024 5:59 PM CDT 10/01/2024 5:59 PM CDT Matias Limon MD LAB POCT ORDERABLES - DE VICE Final Result Performing Organization Address [facility] de Phone Number [facility] [address] [facility] [place] [address] * POCT glucose (10/01/2024 4:42 PM CDT) Glucose, POC 125 70 - 199 mg/dL Comment: For Glucose values <35 mg/dl when Hematocrit is >60 mg/dl,the test may not accurately detect significant hypoglycemia,and testing in the Laboratory should be considered if clinically indicated. Blood 10/01/2024 4:42 PM CDT 10/01/2024 4:42 PM CDT Matias Limon MD LAB POCT ORDERABLES - DE VICE Final Result Performing Organization Address [facility] de Phone Number IREN[facility]HELLE [facility] [address] [facility] [place] [address] * POCT Activated clotting time, low range (10/01/2024 4:40 PM CDT) ACT 131 123 - 168 sec Blood 10/01/2024 4:40 PM CDT 10/01/2024 4:40 PM CDT Matias Limon MD LAB POCT ORDERABLES - DE VICE Final Result Performing Organization Address [facility] Co de Phone Number ADRIANA [facility] [address] Department [place] [address] * XR Chest 1 View - Portable (10/01/2024 4:06 PM CDT) Anatomical Region Laterality Modality Body, Chest N/A Computed Radiogr aphy 10/01/2024 4:11 PM CDT Impressions 10/01/2024 4:11 PM CDT Comparison is made to prior examination 09/28/2024. Evaluation is somewhat limited by patient rotation. The tracheal tube terminates approximately 6 cm above the josie. Right internal jugular central venous catheter tip overlies the superior vena cava. Right internal jugular [place]-Janeth catheter tip overlies the main pulmonary artery. New median sternotomy wires. Mediastinal/pericardial drain and left chest tube noted. Nasogastric tube is not well seen distally but extends below the diaphragm at least to the level of the proximal stomach. Bilateral interstitial prominent opacities are favored to represent pulmonary edema. Likely small left and trace right pleural effusions. No pneumothorax identified. Widened appearance of the cardiomediastinal silhouette is likely related to recent postoperative state. Electronically signed by: Compa Johnson M.D. Narrative 10/01/2024 4:11 PM CDT EXAMINATION: XR CHEST 1 VIEW Procedure Note Compa Johnson MD - 10/01/2024 EXAMINATION: XR CHEST 1 VIEW IMPRESSION: Comparison is made to prior examination 09/28/2024. Evaluation is somewhat limited by patient rotation. The tracheal tube terminates approximately 6 cm above the josie. Right internal jugular central venous catheter tip overlies the superior vena cava. Right internal jugular [place]-Janeth catheter tip overlies the main pulmonary artery. New median sternotomy wires. Mediastinal/pericardial drain and left chest tube noted. Nasogastric tube is not well seen distally but extends below the diaphragm at least to the level of the proximal stomach. Bilateral interstitial prominent opacities are favored to represent pulmonary edema. Likely small left and trace right pleural effusions. No pneumothorax identified. Widened appearance of the cardiomediastinal silhouette is likely related to recent postoperative state. Electronically signed by: Compa Johnson M.D. us Maxwell Hughes MD IMG XR PROCEDURES Final Result * POCT glucose (10/01/2024 3:48 PM CDT) Glucose, POC 131 70 - 199 mg/dL Comment: For Glucose values <35 mg/dl when Hematocrit is >60 mg/dl,the test may not accurately detect significant hypoglycemia,and testing in the Laboratory should be considered if clinically indicated. Blood 10/01/2024 3:48 PM CDT 10/01/2024 3:48 PM CDT us Matias Limon MD LAB POCT ORDERABLES - DE VICE Final Result [facility] [address] Department [place] [address] * eGFR (10/01/2024 3:45 PM CDT) Pathologist [facility] eGFR >90 >=60 mL/min/1. 73 m2 Comment: Interpretive Data Reference Interval Normal >/= 90 mL/min/1.73m2 Mildly decreased* 60 - 89 mL/min/1.73m2 Mildly to moderately decreased 45 - 59 mL/min/1.73m2 Moderately to severely decreased 30 - 44 mL/min/1.73m2 Severely decreased 15 - 29 mL/min/1.73m2 Kidney Failure < 15 mL/min/1.73m2 *Relative to young adult level Estimated glomerular filtration rate is determined by the 2020 CKD-EPI equation recommended by the National Kidney [employer] (A Unifying Approach to GFR Estimation: Recommendations of the NKF-ASK Task Force on Reassessing the Inclusion of Race in Diagnosing Kidney Disease, JASN 2020). The CKD-EPI equation should not be used for patients with unstable renal function and has not been validated in children and those over 70. Current interpretive data was last reviewed 2021. Blood 10/01/2024 3:45 PM CDT 10/01/2024 3:53 PM CDT Maxwell Hughes MD LAB BLOOD ORDERABLES Final Res ult Performing Organization Address [facility] Co de Phone Number [facility] [address] [facility] [address] [place], [place] [id number] * (ABNORMAL) Calcium, ionized (10/01/2024 3:45 PM CDT) Calcium, Ionized 4.13(L) 4.50 - 5.10 mg/dL Blood 10/01/2024 3:45 PM CDT 10/01/2024 3:51 PM CDT Maxwell Hughes MD LAB BLOOD ORDERABLES Final Res ult Performing Organization Address [facility] Co de Phone Number [facility] [address] [facility] [address] [place], [place] [id number] * (ABNORMAL) aPTT (10/01/2024 3:45 PM CDT) aPTT 25(L) 28 - 38 sec Comment: Interpretive Data Heparin therapeutic range: 66.0 - 100.0 seconds. Range based on correlation with therapeutic heparin activity range of 0.3 - 0.7 Units/mL. Current interpretive data was last revised on 2023. Blood 10/01/2024 3:45 PM CDT 10/01/2024 3:53 PM CDT Maxwell Hughes MD LAB BLOOD ORDERABLES Final Res ult Performing Organization Address [facility] Co de Phone Number [facility] [address] [facility] [address] [place], [place] [id number] * Protime-INR (10/01/2024 3:45 PM CDT) PT 12.8 9.7 - 13.0 sec INR 1.18 0.90 - 1.20 [facility] Comment: Interpretive data Oral anticoagulant therapeutic ranges: Venous thromboembolism prophylaxis or treatment: 2.0-3.0 CARDIOLOGY Standard range: 2.0-3.0 High-intensity range: 2.5-3.5 Refer to indication-specific guidelines for appropriate target ranges for prosthetic heart valve replacement. Current interpretive data was last revised on 2019. Blood 10/01/2024 3:45 PM CDT 10/01/2024 3:53 PM CDT us Maxwell Hughes MD LAB BLOOD ORDERABLES Final Res ult Performing Organization Address [facility]/ZIP Co de Phone Number [facility] [address] [place] [address] * (ABNORMAL) CBC without differential (10/01/2024 3:45 PM CDT) WBC 14.3(H) 3.8 - 9.9 K/cumm Hgb 12.7(L) 13.0 - 17.5 g/dL [facility] Hct 38.9 38.9 - 50.3 % [facility] Plt 83(L) 150 - 400 K/cumm [facility] MPV 8.9(L) 9.1 - 12.3 fL [facility] RBC 3.84(L) 4.30 - 5.80 M/cumm [facility] MCV 101.3(H) 81.3 - 96.4 fL [facility] MCH 33.1 27.1 - 33.3 pg [facility] MCHC 32.6 32.3 - 35.7 g/dL [facility] RDW CV 13.7 11.1 - 14.9 % [facility] RDW SD 50.4(H) 35.7 - 48.1 fL [facility] NRBC abs 0.00 0.00 - 0.01 K/cumm [facility] Blood 10/01/2024 3:45 PM CDT 10/01/2024 3:53 PM CDT us Maxwell Hughes MD LAB BLOOD ORDERABLES Final Res ult Performing Organization Address [facility]/ZIP Co de Phone Number [facility] [address] [facility] [place] [address] * Phosphorus (10/01/2024 3:45 PM CDT) [facility] Phosphorus, pl 3.2 2.3 - 4.5 mg/dL Blood 10/01/2024 3:45 PM CDT 10/01/2024 3:53 PM CDT Maxwell Hughes MD LAB BLOOD ORDERABLES Final Res ult Performing Organization Address [facility]/ZIP Co de Phone Number [facility] [address] [facility] [place] [address] * Magnesium (10/01/2024 3:45 PM CDT) [facility] Magnesium 2.2 1.4 - 2.5 mg/dL Blood 10/01/2024 3:45 PM CDT 10/01/2024 3:53 PM CDT Maxwell Hughes MD LAB BLOOD ORDERABLES Final Res ult Performing Organization Address [facility] Co de Phone Number [facility] [address] [facility] [place] [address] * (ABNORMAL) Blood gas, arterial (10/01/2024 3:45 PM CDT) [facility] pH, Art 7.31(L) 7.35 - 7.45 PCO2, Arterial 48(H) 35 - 45 mmHg [facility] PO2, Arterial 129(H) 83 - 108 mmHg [facility] HCO3 Art (Calculated) 24 20 - 30 mmol/L [facility] BE, art -2 mmol/L [facility] Comment: Interpretive Data No Reference Range Established Current Interpretive Data was last revised on 2017 O2 Sat Art (Calculated) 99(H) 94 - 98 % [facility] Blood 10/01/2024 3:45 PM CDT 10/01/2024 3:51 PM CDT Maxwell Hughes MD LAB BLOOD ORDERABLES Final Res ult Performing Organization Address [facility]/ZIP Co de Phone Number [facility] [address] [place] [address] * (ABNORMAL) Basic metabolic panel (10/01/2024 3:45 PM CDT) Sodium 140 135 - 145 mmol/L Potassium, pl 4.7 3.3 - 4.9 mmol/L [facility] Chloride 109 97 - 110 mmol/L [facility] CO2 20(L) 22 - 32 mmol/L [facility] Anion gap 11 2 - 15 mmol/L [facility] BUN 15 6 - 25 mg/dL [facility] Creatinine 0.86 0.80 - 1.30 mg/dL [facility] Glucose 138 70 - 199 mg/dL [facility] Comment: Interpretive Data Fasting glucose >/= 126 mg/dl is diagnostic for diabetes. Fasting is defined as no caloric intake for at least 8 hours. Fasting glucose between 100 mg/dl to 125 mg/dl is diagnostic of prediabetes. In a patient with classic symptoms of hyperglycemia or hyperglycemic crisis, a random glucose >/= 200 mg/dl is diagnostic for diabetes. In the absence of unequivocal hyperglycemia, results should be confirmed by repeat testing. The classification and Diagnosis of Diabetes Diabetes Care 2021; 46: S19-S40. Current interpretive data was last revised 2022. Calcium 7.5(L) 8.5 - 10.3 mg/dL [facility] Blood 10/01/2024 3:45 PM CDT 10/01/2024 3:53 PM CDT Maxwell Hughes MD LAB BLOOD ORDERABLES Final Res ult Performing Organization Address [facility] Co de Phone Number [facility] [address] [place] [address] * Critical Care (10/01/2024 3:30 PM CDT) Narrative Compa Ruffin MD - 10/01/2024 3:30 PM CDT Compa Ruffin MD 10/19/2024 4:44 PM Critical Care Performed by: Compa Ruffin MD Authorized by: Compa Ruffin MD CRITICAL CARE: Team: [facility] CT Shift: AM Level of Billing: Critical Care My time spent with this patient was 75 minutes: Critical Provider Statement: I have seen and examined the patient on this day of service. I have reviewed and confirmed the history, physical exam, laboratory and radiologic data as documented in the signed ICU note. I have reviewed and discussed my treatment plan with the ICU team and other medical/men's custom hair piece consultant staff, making frequent assessments and decisions regarding this patient's complex medical care. Critical Care time was exclusive of time spent performing separately billed procedures, treating other patients, and teaching. This time was in addition to and separate from critical care provided by other practitioners in my group on this day of service. Critical Care was necessary to treat or prevent imminent or life-threatening deterioration of the following conditions: Acute pain/acute postoperative pain and Agitation requiring sedation Hypotension S/p CABG x5 Acute respiratory failure following procedure/surgery and Atelectasis Acute electrolyte derangement and Hypo- or Hyperglycemia Leukocytosis This time was spent by me doing the following: Resuscitation with fluids and Serial laboratory checks Active titration of continuous sedation and Acute pain control Initiation/active titration of vasoactive medications, Cardiac pacing and Interpretation of cardiac output measurements Active and frequent reassessment of respiratory status and oxygen requirements and Invasive ventilator management, reassessment, and titration Active and frequent monitoring of intake/output and volumen status and Glycemic control Active repletion of electrolytes Transfusion of blood products and Replacement of coagulation factors Empiric broad coverage antibiotics I spent time reviewing and interpreting data from bedside monitors, laboratory results, and imaging, I spent time discussing the management of this critically ill patient with consultants and the medical staff and I spent time documenting in the medical record us Compa Ruffin MD IN CLINIC/BEDSIDE ORDERABLES Final Result * POC Blood Gas and Chemistries, Arterial - (10/01/2024 3:01 PM CDT) Glucose, POC 139 70 - 199 mg/dL Blood 10/01/2024 3:01 PM CDT 10/01/2024 3:01 PM CDT Dipti Dalal MD LAB POCT ORDERABLES - DEVICE Fin al Result Performing Organization Address [facility] de Phone Number [facility] [address] [facility] [place] [address] * (ABNORMAL) aPTT (10/01/2024 2:33 PM CDT) aPTT 27(L) 28 - 38 sec Comment: Interpretive Data Heparin therapeutic range: 66.0 - 100.0 seconds. Range based on correlation with therapeutic heparin activity range of 0.3 - 0.7 Units/mL. Current interpretive data was last revised on 2023. Blood 10/01/2024 2:33 PM CDT 10/01/2024 2:33 PM CDT Matias Limon MD LAB BLOOD ORDERABLES Fin al Result Performing Organization Address [facility] de Phone Number [facility] [address] [facility] [place] [address] * (ABNORMAL) Protime-INR (10/01/2024 2:33 PM CDT) PT 13.6(H) 9.7 - 13.0 sec INR 1.25(H) 0.90 - 1.20 [facility] Comment: Interpretive data Oral anticoagulant therapeutic ranges: Venous thromboembolism prophylaxis or treatment: 2.0-3.0 CARDIOLOGY Standard range: 2.0-3.0 High-intensity range: 2.5-3.5 Refer to indication-specific guidelines for appropriate target ranges for prosthetic heart valve replacement. Current interpretive data was last revised on 2019. Blood 10/01/2024 2:33 PM CDT 10/01/2024 2:33 PM CDT Matias Limon MD LAB BLOOD ORDERABLES Fin al Result Performing Organization Address [facility]/ZIP Co de Phone Number [facility] [address] [facility] [place] [address] * Fibrinogen (10/01/2024 2:33 PM CDT) [facility] Fibrinogen 244 170 - 400 mg/dL Blood 10/01/2024 2:33 PM CDT 10/01/2024 2:33 PM CDT Matias Limon MD LAB BLOOD ORDERABLES Fin al Result Performing Organization Address [facility] de Phone Number [facility] [address] [facility] [place] [address] * (ABNORMAL) CBC without differential (10/01/2024 2:33 PM CDT) [facility] WBC 18.4(H) 3.8 - 9.9 K/cumm Hgb 12.7(L) 13.0 - 17.5 g/dL [facility] Hct 39.6 38.9 - 50.3 % [facility] Plt 121(L) 150 - 400 K/cumm [facility] MPV 8.9(L) 9.1 - 12.3 fL [facility] RBC 3.89(L) 4.30 - 5.80 M/cumm [facility] MCV 101.8(H) 81.3 - 96.4 fL [facility] MCH 32.6 27.1 - 33.3 pg [facility] MCHC 32.1(L) 32.3 - 35.7 g/dL [facility] RDW CV 13.6 11.1 - 14.9 % [facility] RDW SD 51.6(H) 35.7 - 48.1 fL [facility] NRBC abs 0.00 0.00 - 0.01 K/cumm [facility] Blood 10/01/2024 2:33 PM CDT 10/01/2024 2:33 PM CDT Matias Limon MD LAB BLOOD ORDERABLES Fin al Result [facility] [address] Department [place] [address] * (ABNORMAL) POC Blood Gas and Chemistries, Arterial - (10/01/2024 2:22 PM CDT) pH, Art POC 7.27(L) 7.35 - 7.45 pCO2, Art POC 51(H) 35 - 45 mmHg [facility] pO2, Art POC 91 80 - 108 mmHg [facility] Na, POC 136 135 - 145 mmol/L [facility] K POC 4.5 3.3 - 4.9 mmol/L [facility] Comment: Interpretive Data This method is not able to assess for hemolysis, which may falsely increase potassium concentrations. If further testing is needed to evaluate this result, consider in-laboratory plasma potassium. Current Interpretive Data was last revised on 2022. Cl, POC 107 97 - 110 mmol/L [facility] Ionized Ca, POC 4.45(L) 4.50 - 5.10 mg/dL [facility] Glucose, POC 182 70 - 199 mg/dL [facility] Lactate, POC 2.0 0.7 - 2.0 mmol/L [facility] O2Hb, Art POC 96.0(H) 90.0 - 95.0 % [facility] Carboxhgb fract 0.4 0.0 - 2.9 % [facility] Methemoglobin 0.1 0.0 - 1.9 % [facility] HHb, POC 3.4 0.0 - 5.0 % [facility] SO2 (dunia) arterial 97(H) 90 - 95 % [facility] Total CO2, Art POC 25 22 - 32 mmol/L [facility] BE, art, POC -3.9(L) -2.0 - 2.0 mmol/L [facility] HCO3, Art POC 22 20 - 30 mmol/L [facility] Hct, POC 39.0 38.9 - 50.3 % [facility] Total Hb, POC 13.0 13.0 - 17.5 g/dL [facility] Blood 10/01/2024 2:22 PM CDT 10/01/2024 2:22 PM CDT Dipti Dalal MD LAB POCT ORDERABLES - DEVICE Fin al Result Performing Organization Address [facility] Co de Phone Number ADRIANA [facility] [address] [facility] [place] [address] * POC Activated Clotting Time, High Range (10/01/2024 2:20 PM CDT) ACT 112 87 - 138 sec Blood 10/01/2024 2:20 PM CDT 10/01/2024 2:20 PM CDT Dipti Dalal MD LAB BLOOD ORDERABLES Final Resul t Performing Organization Address [facility] Co de Phone Number [facility] [address] [facility] [place] [address] * [place] AN PROCEDURE PLACEHOLDER (10/01/2024 2:00 PM CDT) Anatomical Region Laterality Modality Other Narrative 10/01/2024 2:00 PM CDT Mychal Main MD 10/01/2024 2:09 PM DEMARIO Date/time: Staff: Performed by: Anesthesiologist: Radu Blair MD Preprocedure checklist: patient identified, procedure contraindications assessed, procedure consent, risks, benefits and alternatives discussed, monitors and equipment checked and DEMARIO probe inserted into esophagus using lubricating jelly General procedure Information: Reason for procedure/indications: assessment of surgical repair Procedure performed at surgeon's request: yes Results discussed with surgeon: yes Images submitted to archive: yes Patient location: OR Intubated: yes Bite blocked placed: yes Probe Insertion: easy Complications: no Probe type: adult Modalities: 2D imaging, 3D imaging, continuous wave Doppler, pulsed wave Doppler and color Doppler Billing information: Physician requesting echo: Matias Limon MD CPT code: DEMARIO placement and diagnostic exam, non-congenital (80373) ICD code(s) for medical necessity: R93.1 - Abnormal findings on diagnostic imaging of heart and coronary circulation Echocardiographic and doppler measurements: Ventricles: Left ventricle: Cavity size: normal Global function: normal LVEF%: normal Right ventricle: Cavity size: normal Global function: normal RVEF%: normal Interventricular septum: normal Regional function: 1- Basal anteroseptal: normal 2- Basal anterior: normal 3- Basal anterolateral: normal 4- Basal inferolateral: normal 5- Basal inferior: normal 6- Basal inferoseptal: normal 7- Mid anteroseptal: normal 8- Mid anterior: normal 9- Mid anterolateral: normal 10- Mid inferolateral: normal 11- Mid inferior: normal 12- Mid inferoseptal: normal 13- Apical anterior: normal 14- Apical lateral: normal 15- Apical inferior: normal 16- Apical septal: normal 17- Torrey: normal Valves: Aortic Valve: Annulus: normal Leaflet morphology: normal Leaflet motion: normal Regurgitation: none Mitral valve: Annulus: normal Leaflet morphology anterior: normal Leaflet morphology posterior: normal Leaflet motion anterior: normal Leaflet motion posterior: normal Regurgitation: none Tricuspid valve: Annulus: normal Regurgitation: none Aorta: Ascending aorta: Size: normal Aortic arch: Size: normal Descending aorta: Size: normal Atria: Interatrial septum: normal Diastolic function and other findings: Pre-procedure DEMARIO exam summary: Preprocedure echo by Dr. Blair. Exam performed under general endotracheal anesthesia with positive pressure ventilation. The left ventricle is normal in size and systolic function. There are no LV regional wall motion abnormalities. The RV size and systolic function are normal. There is no aortic regurgitation. There is no mitral regurgitation. There is no tricuspid regurgitation. There is no PFO by color flow doppler. . 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 There is normal left ventricular systolic function. There are no LV regional wall motion abnormalities. There is normal right ventricular systolic function. There are no valvular abnormalities. No changes with chest closure. Attestation Statement: By signing this report the attending anesthesiologist certifies that he or she has personally reviewed and interpreted the echocardiogram and has reviewed and or edited and agrees with the written comments contained within the report. Raud Blair MD ANESTHESIA ORDERABLES Final Re sult * (ABNORMAL) POC Activated Clotting Time, High Range (10/01/2024 1:56 PM CDT) ACT 423(H) 87 - 138 sec Blood 10/01/2024 1:56 PM CDT 10/01/2024 1:56 PM CDT us Dipti Dalal MD LAB BLOOD ORDERABLES Final Resul t [facility] [address] Department [place] [address] * (ABNORMAL) POC Blood Gas and Chemistries, Arterial - (10/01/2024 1:55 PM CDT) [facility] pH, Art POC 7.36 7.35 - 7.45 pCO2, Art POC 46(H) 35 - 45 mmHg [facility] pO2, Art POC 274(H) 80 - 108 mmHg [facility] Na, POC 136 135 - 145 mmol/L [facility] K POC 5.1(H) 3.3 - 4.9 mmol/L [facility] Comment: Interpretive Data This method is not able to assess for hemolysis, which may falsely increase potassium concentrations. If further testing is needed to evaluate this result, consider in-laboratory plasma potassium. Current Interpretive Data was last revised on 2022. Cl, POC 106 97 - 110 mmol/L [facility] Ionized Ca, POC 4.43(L) 4.50 - 5.10 mg/dL [facility] Glucose, POC 204(H) 70 - 199 mg/dL [facility] Lactate, POC 2.1(H) 0.7 - 2.0 mmol/L [facility] O2Hb, Art POC 97.9(H) 90.0 - 95.0 % [facility] Carboxhgb fract 0.4 0.0 - 2.9 % [facility] Methemoglobin 0.2 0.0 - 1.9 % [facility] HHb, POC 1.5 0.0 - 5.0 % [facility] SO2 (dunia) arterial 98(H) 90 - 95 % [facility] Total CO2, Art POC 27 22 - 32 mmol/L [facility] BE, art, POC 0.2 -2.0 - 2.0 mmol/L [facility] HCO3, Art POC 25 20 - 30 mmol/L [facility] Hct, POC 35.0(L) 38.9 - 50.3 % [facility] Total Hb, POC 11.8(L) 13.0 - 17.5 g/dL [facility] Blood 10/01/2024 1:55 PM CDT 10/01/2024 1:55 PM CDT Dipti Dalal MD LAB POCT ORDERABLES - DEVICE Fin al Result Performing Organization Address [facility]/ZIP Co de Phone Number [facility] [address] Department [employer] [place], [place] [id number] * (ABNORMAL) POC Activated Clotting Time, High Range (10/01/2024 1:24 PM CDT) ACT 503(H) 87 - 138 sec Blood 10/01/2024 1:24 PM CDT 10/01/2024 1:24 PM CDT Dipti Dalal MD LAB BLOOD ORDERABLES Final Resul t Performing Organization Address [facility] Co de Phone Number [facility] [address] Department [place] [place] [address] * (ABNORMAL) POC Blood Gas and Chemistries, Arterial - (10/01/2024 1:12 PM CDT) pH, Art POC 7.36 7.35 - 7.45 pCO2, Art POC 38 35 - 45 mmHg [facility] pO2, Art POC 221(H) 80 - 108 mmHg [facility] Na, POC 132(L) 135 - 145 mmol/L [facility] K POC 5.1(H) 3.3 - 4.9 mmol/L [facility] Comment: Interpretive Data This method is not able to assess for hemolysis, which may falsely increase potassium concentrations. If further testing is needed to evaluate this result, consider in-laboratory plasma potassium. Current Interpretive Data was last revised on 2022. Cl, POC 107 97 - 110 mmol/L [facility] Ionized Ca, POC 4.53 4.50 - 5.10 mg/dL [facility] Glucose, POC 228(H) 70 - 199 mg/dL [facility] Lactate, POC 1.4 0.7 - 2.0 mmol/L [facility] O2Hb, Art POC 97.6(H) 90.0 - 95.0 % [facility] Carboxhgb fract 0.3 0.0 - 2.9 % [facility] Methemoglobin 0.4 0.0 - 1.9 % [facility] HHb, POC 1.8 0.0 - 5.0 % [facility] SO2 (dunia) arterial 98(H) 90 - 95 % [facility] Total CO2, Art POC 23 22 - 32 mmol/L [facility] BE, art, POC -3.6(L) -2.0 - 2.0 mmol/L [facility] HCO3, Art POC 22 20 - 30 mmol/L [facility] Hct, POC 37.0(L) 38.9 - 50.3 % [facility] Total Hb, POC 12.3(L) 13.0 - 17.5 g/dL [facility] Blood 10/01/2024 1:12 PM CDT 10/01/2024 1:12 PM CDT Dipti Dalal MD LAB POCT ORDERABLES - DEVICE Fin al Result Performing Organization Address City/State/[facility] Co de Phone Number [facility] [address] Department [place] [address] * (ABNORMAL) POC Activated Clotting Time, High Range (10/01/2024 1:11 PM CDT) ACT 448(H) 87 - 138 sec Blood 10/01/2024 1:11 PM CDT 10/01/2024 1:11 PM CDT Dipti Dalal MD LAB BLOOD ORDERABLES Final Resul t [facility] [address] Department [place] [address] * (ABNORMAL) POC Activated Clotting Time, High Range (10/01/2024 12:41 PM CDT) Pathologist [facility] ACT 440(H) 87 - 138 sec Blood 10/01/2024 12:4 1 PM CDT 10/01/2024 12:41 PM CDT us Dipti Dalal MD LAB BLOOD ORDERABLES Final Resul t Performing Organization Address City/[facility]/ZIP Co de Phone Number [facility] [address] Department [place] [address] * (ABNORMAL) POC Blood Gas and Chemistries, Arterial - (10/01/2024 12:41 PM CDT) [facility] pH, Art POC 7.36 7.35 - 7.45 pCO2, Art POC 42 35 - 45 mmHg [facility] pO2, Art POC 226(H) 80 - 108 mmHg [facility] Na, POC 132(L) 135 - 145 mmol/L [facility] K POC 5.5(H) 3.3 - 4.9 mmol/L [facility] Comment: Interpretive Data This method is not able to assess for hemolysis, which may falsely increase potassium concentrations. If further testing is needed to evaluate this result, consider in-laboratory plasma potassium. Current Interpretive Data was last revised on 2022. Cl, POC 106 97 - 110 mmol/L [facility] Ionized Ca, POC 4.52 4.50 - 5.10 mg/dL [facility] Glucose, POC 237(H) 70 - 199 mg/dL [facility] Lactate, POC 1.3 0.7 - 2.0 mmol/L [facility] O2Hb, Art POC 97.9(H) 90.0 - 95.0 % [facility] Carboxhgb fract 0.0 0.0 - 2.9 % [facility] Methemoglobin 0.1 0.0 - 1.9 % [facility] HHb, POC 2.0 0.0 - 5.0 % [facility] SO2 (duina) arterial 98(H) 90 - 95 % [facility] Total CO2, Art POC 25 22 - 32 mmol/L [facility] BE, art, POC -1.7 -2.0 - 2.0 mmol/L [facility] HCO3, Art POC 24 20 - 30 mmol/L [facility] Hct, POC 37.0(L) 38.9 - 50.3 % [facility] Total Hb, POC 12.3(L) 13.0 - 17.5 g/dL [facility] Blood 10/01/2024 12:4 1 PM CDT 10/01/2024 12:41 PM CDT Dipti Dalal MD LAB POCT ORDERABLES - DEVICE Fin al Result Performing Organization Address [facility] Co de Phone Number [facility] [address] Department [place] [address] * (ABNORMAL) POC Activated Clotting Time, High Range (10/01/2024 12:14 PM CDT) ACT 417(H) 87 - 138 sec Blood 10/01/2024 12:1 4 PM CDT 10/01/2024 12:14 PM CDT Dipti Dalal MD LAB BLOOD ORDERABLES Final Resul t Performing Organization Address [facility] Co de Phone Number [facility] [address] Department [employer] [place] [address] * (ABNORMAL) POC Blood Gas and Chemistries, Venous - (10/01/2024 11:55 AM CDT) pH, Jarrod POC 7.31(L) 7.32 - 7.45 pCO2, jarrod POC 48 40 - 50 mmHg [facility] pO2, jarrod POC 46(H) 35 - 42 mmHg [facility] Na, POC 133(L) 135 - 145 mmol/L [facility] K POC 4.7 3.3 - 4.9 mmol/L [facility] Comment: Interpretive Data This method is not able to assess for hemolysis, which may falsely increase potassium concentrations. If further testing is needed to evaluate this result, consider in-laboratory plasma potassium. Current Interpretive Data was last revised on 2022. Cl, POC 106 97 - 110 mmol/L [facility] Ionized Ca, POC 4.57 4.50 - 5.10 mg/dL [facility] Glucose, POC 186 70 - 199 mg/dL [facility] Lactate, POC 1.0 0.7 - 2.0 mmol/L [facility] O2Hb, Jarrod POC 79.0(L) 90.0 - 95.0 % [facility] Carboxhgb fract 0.6 0.0 - 2.9 % [facility] Methemoglobin 0.3 0.0 - 1.9 % [facility] HHb, POC 20.2(H) 0.0 - 5.0 % [facility] O2 Sat, Jarrod POC (Dunia) 80(H) 68 - 77 % [facility] Total CO2, jarrod POC 26 22 - 32 mmol/L [facility] Base excess, jarrod POC -2.4 mmol/L [facility] HCO3, Jarrod POC 23 20 - 30 mmol/L [facility] Hct, POC 37.0(L) 38.9 - 50.3 % [facility] Total Hb, POC 12.4(L) 13.0 - 17.5 g/dL [facility] Blood 10/01/2024 11:5 5 AM CDT 10/01/2024 11:55 AM CDT us Dipti Dalal MD LAB POCT ORDERABLES - DEVICE Fin al Result [facility] [address] Department [place] [address] * (ABNORMAL) POC Activated Clotting Time, High Range (10/01/2024 11:53 AM CDT) ACT 492(H) 87 - 138 sec Blood 10/01/2024 11:5 3 AM CDT 10/01/2024 11:53 AM CDT us Dipti Dalal MD LAB BLOOD ORDERABLES Final Resul t [facility] [address] Department [place] [address] * (ABNORMAL) POC Blood Gas and Chemistries, Arterial - (10/01/2024 11:40 AM CDT) pH, Art POC 7.33(L) 7.35 - 7.45 pCO2, Art POC 44 35 - 45 mmHg [facility] pO2, Art POC 214(H) 80 - 108 mmHg [facility] Na, POC 134(L) 135 - 145 mmol/L [facility] K POC 4.2 3.3 - 4.9 mmol/L [facility] Comment: Interpretive Data This method is not able to assess for hemolysis, which may falsely increase potassium concentrations. If further testing is needed to evaluate this result, consider in-laboratory plasma potassium. Current Interpretive Data was last revised on 2022. Cl, POC 106 97 - 110 mmol/L [facility] Ionized Ca, POC 4.56 4.50 - 5.10 mg/dL [facility] Glucose, POC 186 70 - 199 mg/dL [facility] Lactate, POC 0.8 0.7 - 2.0 mmol/L [facility] O2Hb, Art POC 97.9(H) 90.0 - 95.0 % [facility] Carboxhgb fract 0.3 0.0 - 2.9 % [facility] Methemoglobin 0.2 0.0 - 1.9 % [facility] HHb, POC 1.6 0.0 - 5.0 % [facility] SO2 (dunia) arterial 98(H) 90 - 95 % [facility] Total CO2, Art POC 25 22 - 32 mmol/L [facility] BE, art, POC -2.8(L) -2.0 - 2.0 mmol/L [facility] HCO3, Art POC 23 20 - 30 mmol/L [facility] Hct, POC 38.0(L) 38.9 - 50.3 % [facility] Total Hb, POC 12.6(L) 13.0 - 17.5 g/dL [facility] Blood 10/01/2024 11:4 0 AM CDT 10/01/2024 11:40 AM CDT Dipti Dalal MD LAB POCT ORDERABLES - DEVICE Fin al Result Performing Organization Address City/[facility]/ZIP Co de Phone Number [facility] [address] Department [place] [address] * (ABNORMAL) POC Activated Clotting Time, High Range (10/01/2024 11:10 AM CDT) ACT 554(H) 87 - 138 sec Blood 10/01/2024 11:1 0 AM CDT 10/01/2024 11:10 AM CDT Dipti Dalal MD LAB BLOOD ORDERABLES Final Resul t Performing Organization Address [facility] Co de Phone Number [facility] [address] Department [place] [address] * (ABNORMAL) POC Blood Gas and Chemistries, Arterial - (10/01/2024 11:10 AM CDT) pH, Art POC 7.34(L) 7.35 - 7.45 pCO2, Art POC 46(H) 35 - 45 mmHg [facility] pO2, Art POC 359(H) 80 - 108 mmHg [facility] Na, POC 133(L) 135 - 145 mmol/L [facility] K POC 4.5 3.3 - 4.9 mmol/L [facility] Comment: Interpretive Data This method is not able to assess for hemolysis, which may falsely increase potassium concentrations. If further testing is needed to evaluate this result, consider in-laboratory plasma potassium. Current Interpretive Data was last revised on 2022. Cl, POC 104 97 - 110 mmol/L [facility] Ionized Ca, POC 4.77 4.50 - 5.10 mg/dL [facility] Glucose, POC 205(H) 70 - 199 mg/dL [facility] Lactate, POC 1.0 0.7 - 2.0 mmol/L [facility] O2Hb, Art POC 97.7(H) 90.0 - 95.0 % [facility] Carboxhgb fract 0.0 0.0 - 2.9 % [facility] Methemoglobin 0.4 0.0 - 1.9 % [facility] HHb, POC 1.9 0.0 - 5.0 % [facility] SO2 (dunia) arterial 98(H) 90 - 95 % [facility] Total CO2, Art POC 26 22 - 32 mmol/L [facility] BE, art, POC -1.4 -2.0 - 2.0 mmol/L [facility] HCO3, Art POC 24 20 - 30 mmol/L [facility] Hct, POC 44.0 38.9 - 50.3 % [facility] Total Hb, POC 14.5 13.0 - 17.5 g/dL [facility] Blood 10/01/2024 11:1 0 AM CDT 10/01/2024 11:10 AM CDT us Dipti Dalal MD LAB POCT ORDERABLES - DEVICE Fin al Result [facility] [address] Department [place] [address] * OH AN CENTRAL LINE QUADRUPLE LUMEN, OH AN PROCEDURE PLACEHOLDER (10/01/2024 9:37 AM CDT) Narrative Radu Blair MD - 10/01/2024 9:37 AM CDT Radu Blair MD 10/01/2024 9:38 AM Central Venous Line Patient location: OR Indication: central venous access and CVP monitoring Staff: Supervising provider: Radu Blair MD Placed by: [employer] INSPECTOR: Ashish Burnham CRNA Procedure prep: Patient position: Trendelenburg. PPE: provider hand hygiene, provider hat/mask, sterile gloves, sterile gown and full body drape. Prep solution: chlorhexadine/alcohol was applied to area. Ultrasound Evaluation: Ultrasound was prepped into field. Central line: Laterality: right Site: internal jugular Catheter type: quad lumen Catheter size: 8.5 Fr. Catheter length: 16 cm Technique: wire threaded easily, anatomy identified with surface landmarks, anatomy identified with ultrasound, vein located with finder needle, Seldinger technique and wire removed intact Venous verification: manometry, ultrasound confirmation and DEMARIO confirmation Post insertion: all ports aspirated, all ports flushed easily, line sutured in place and occlusive dressing applied Number of attempts: 1 Assessment: Events: patient tolerated procedure well with no complications Radu Balir MD ANESTHESIA ORDERABLES Final Re sult * BW AN SHEATH INTRODUCER PERFORMABLE, PULMONARY ARTERY CATH, OH AN PROCEDURE PLACEHOLDER (59:37 AM CDT) Narrative Radu Blair MD - 10/01/2024 9:37 AM CDT Radu Blair MD 10/01/2024 9:37 AM Central Venous Line Patient location: OR Indication: central venous access and CVP monitoring Staff: Supervising provider: Radu Blair MD Placed by: [employer] INSPECTOR: Ashish Burnham CRNA Procedure prep: Patient position: Trendelenburg. PPE: provider hand hygiene, provider hat/mask, sterile gloves, sterile gown and full body drape. Prep solution: chlorhexadine/alcohol was applied to area. Ultrasound Evaluation: Ultrasound was prepped into field. Central line: Laterality: right Site: internal jugular Catheter type: introducer sheath Catheter size: 9 Fr. Catheter length: 10 cm Technique: anatomy identified with surface landmarks, anatomy identified with ultrasound, vein located with finder needle, Seldinger technique, wire threaded easily and wire removed intact Venous verification: manometry, ultrasound confirmation and DEMARIO confirmation Post insertion: all ports aspirated, all ports flushed easily, line sutured in place and occlusive dressing applied Number of attempts: 1 PA catheter placement: PA catheter type: non-oximetric PA catheter size: 7.5 Fr PA catheter laterality: right PA catheter site: internal jugular Placement guided by: pressure tracing changes PA catheter depth 50 cmNo Assessment: Events: patient tolerated procedure well with no complications Radu Blair MD ANESTHESIA ORDERABLES Final Re sult * OH AN PROCEDURE PLACEHOLDER (10/01/2024 9:36 AM CDT) Radu Moe MD - 10/01/2024 9:36 AM CDT Radu Blair MD 10/01/2024 9:39 AM Arterial Line Patient location: OR Indication: continuous blood pressure monitoring and blood sampling needed Staff: Supervising provider: Radu Blair MD Placed by: [employer] INSPECTOR: Ashish Burnham CRNA Procedure prep: Prep solution: chlorhexadine/alcohol Prep: provider hat/mask Arterial line: Catheter size: 20 gauge Catheter length: 1 and 3/4 inch Catheter type: wire-guided catheter Seldinger technique: yes Laterality: right Site: radial artery Line secured: tape and Tegaderm Results: good waveform and good blood return Number of attempts: 1 Assessment: Events: patient tolerated procedure well with no complications us Radu Blair MD ANESTHESIA ORDERABLES Edited R esult - Final * OH AN ELECTIVE ENDOTRACHEAL AIRWAY, OH AN PROCEDURE PLACEHOLDER (10/01/2024 9:35 AM CDT) Radu Moe MD - 10/01/2024 9:35 AM CDT Radu Blair MD 10/01/2024 9:36 AM Airway Patient location: OR Urgency: elective Date/time: 10/01/2024 9:10 AM Indications for airway management: anesthesia Difficult airway: no Staff: Placed by: Anesthesiologist: Radu Blair MD Emergent airway documentation: Risks and benefits discussed: yes Consent obtained: yes Consent given by: patient Airway prep: Preoxygenated: yes Patient position: sniffing Mask difficulty assessment: 1 - vent by mask Sedation level during airway: GA Final airway details: Final airway type: endotracheal airway Tube type: ETT ETT size: 8.0 mm Cuffed: yes Technique used for successful ETT placement: video laryngoscopy Insertion site: oral Blade type: Travis Video blade type: Avila Blade size: 3 Cormack-Lehane (direct): grade I - full view of glottis Cuff inflated with: air Placement verified by: auscultation and CO2 detection Airway secured with: silk tape Number of attempts: 1no us Radu Blair MD ANESTHESIA ORDERABLES Final Re sult * POC Activated Clotting Time, High Range (10/01/2024 9:24 AM CDT) Pathologist [facility] ACT 91 87 - 138 sec Blood 10/01/2024 9:24 AM CDT 10/01/2024 9:24 AM CDT us Dipti Dalla MD LAB BLOOD ORDERABLES Final Resul t Performing Organization Address [facility] Co de Phone Number [facility] [address] Department [place] [address] * Prepare RBC (10/01/2024 9:12 AM CDT) [facility] Product code [id number] Unit Number [id number] 7-B [facility] Product Blood Type APOS [facility] Dispense Status RETURNED [facility] Product code [id number] [facility] Unit Number [id number] 6-M [facility] Product Blood Type APOS [facility] Dispense Status RETURNED [facility] Blood 10/01/2024 9:12 AM CDT 10/01/2024 9:12 AM CDT us Dipti Dalal MD BLOOD BANK PRODUCT ORDERABLES Fi nal Result Performing Organization Address [facility] de Phone Number [facility] [address] Department [place] [address] * POCT glucose (10/01/2024 7:13 AM CDT) [facility] Glucose, POC 196 70 - 199 mg/dL Comment: For Glucose values <35 mg/dl when Hematocrit is >60 mg/dl,the test may not accurately detect significant hypoglycemia,and testing in the Laboratory should be considered if clinically indicated. Blood 10/01/2024 7:13 AM CDT 10/01/2024 7:13 AM CDT us Dipti Dalal MD LAB POCT ORDERABLES - DEVICE Fin al Result Performing Organization Address [facility] Co de Phone Number [facility] [address] Department [place] [address] * DEMARIO Add-On For OR (10/01/2024 6:40 AM CDT) BSA 2.66 m2 CONS SCIMAGE Narrative CONS SCIMAGE - 10/01/2024 6:40 AM CDT Procedure Auto Finalized by Rule: BW CV DEMARIO DURING CASE OR Please see the Anesthesiologist's Procedure Note for the results. us Radu Blair MD CV ECHO PROCEDURES Final Resul t Performing Organization Address [facility] Co de Phone Number CONS SCITORIBIO * (ABNORMAL) aPTT (10/01/2024 5:39 AM CDT) aPTT 84(H) 28 - 38 sec Comment: Interpretive Data Heparin therapeutic range: 66.0 - 100.0 seconds. Range based on correlation with therapeutic heparin activity range of 0.3 - 0.7 Units/mL. Current interpretive data was last revised on 2023. Blood 10/01/2024 5:39 AM CDT 10/01/2024 5:39 AM CDT Dipti Dalal MD LAB BLOOD ORDERABLES Final Resul t Performing Organization Address [facility]/ZIP Co de Phone Number [facility] [address] Department [place] [address] * (ABNORMAL) POCT glucose (10/01/2024 5:16 AM CDT) Glucose, POC 228(H) 70 - 199 mg/dL Comment: For Glucose values <35 mg/dl when Hematocrit is >60 mg/dl,the test may not accurately detect significant hypoglycemia,and testing in the Laboratory should be considered if clinically indicated. Blood 10/01/2024 5:16 AM CDT 10/01/2024 5:16 AM CDT Dipti Dalal MD LAB POCT ORDERABLES - DEVICE Fin al Result Performing Organization Address City/[facility] Co de Phone Number [facility] [address] Department [place] [address] * eGFR (10/01/2024 1:24 AM CDT) eGFR >90 >=60 mL/min/1. 73 m2 Comment: Interpretive Data Reference Interval Normal >/= 90 mL/min/1.73m2 Mildly decreased* 60 - 89 mL/min/1.73m2 Mildly to moderately decreased 45 - 59 mL/min/1.73m2 Moderately to severely decreased 30 - 44 mL/min/1.73m2 Severely decreased 15 - 29 mL/min/1.73m2 Kidney Failure < 15 mL/min/1.73m2 *Relative to young adult level Estimated glomerular filtration rate is determined by the 2020 CKD-EPI equation recommended by the National [employer] (A Unifying Approach to GFR Estimation: Recommendations of the NKF-ASK Task Force on Reassessing the Inclusion of Race in Diagnosing Kidney Disease, JASN 2020). The CKD-EPI equation should not be used for patients with unstable renal function and has not been validated in children and those over 70. Current interpretive data was last reviewed 2021. Blood 10/01/2024 1:24 AM CDT 10/01/2024 1:39 AM CDT Dipti Dalal MD LAB BLOOD ORDERABLES Final Resul t Performing Organization Address [facility]/ZIP Co de Phone Number [facility] [address] Department [place] [address] * Differential, auto (10/01/2024 1:24 AM CDT) Neutrophil abs 3.4 1.5 - 6.5 K/cumm Imm gran abs 0.1 0.0 - 0.1 K/cumm [facility] Lymphocyte abs 1.9 0.8 - 3.3 K/cumm [facility] Monocyte abs 0.5 0.2 - 0.8 K/cumm [facility] Eosinophil abs 0.1 0.0 - 0.5 K/cumm [facility] Basophil abs 0.0 0.0 - 0.1 K/cumm [facility] Neutrophil pct 57.1 % [facility] Comment: Interpretive Data Percent cell count reference ranges are not reported, since discordance with absolute values may lead to misinterpretation of CBC data. Current Interpretive Data was last revised on 2017. Imm gran pct 1.2 % [facility] Comment: Interpretive Data Percent cell count reference ranges are not reported, since discordance with absolute values may lead to misinterpretation of CBC data. Current Interpretive Data was last revised on 2017. Lymphocyte pct 31.7 % [facility] Comment: Interpretive Data Percent cell count reference ranges are not reported, since discordance with absolute values may lead to misinterpretation of CBC data. Current Interpretive Data was last revised on 2017. Monocyte pct 7.5 % [facility] Comment: Interpretive Data Percent cell count reference ranges are not reported, since discordance with absolute values may lead to misinterpretation of CBC data. Current Interpretive Data was last revised on 2017. Eosinophil pct 1.8 % [facility] Comment: Interpretive Data Percent cell count reference ranges are not reported, since discordance with absolute values may lead to misinterpretation of CBC data. Current Interpretive Data was last revised on 2017. Basophil pct 0.7 % [facility] Comment: Interpretive Data Percent cell count reference ranges are not reported, since discordance with absolute values may lead to misinterpretation of CBC data. Current Interpretive Data was last revised on 2017. Blood 10/01/2024 1:24 AM CDT 10/01/2024 1:39 AM CDT us Dipti Dalal MD LAB BLOOD ORDERABLES Final Resul t [facility] [address] Department of Laboratories [place], [place] [id number] * (ABNORMAL) CBC with auto differential (10/01/2024 1:24 AM CDT) WBC 6.0 3.8 - 9.9 K/cumm Hgb 14.5 13.0 - 17.5 g/dL [facility] Hct 44.2 38.9 - 50.3 % [facility] Plt 127(L) 150 - 400 K/cumm [facility] MPV 8.8(L) 9.1 - 12.3 fL [facility] RBC 4.45 4.30 - 5.80 M/cumm [facility] MCV 99.3(H) 81.3 - 96.4 fL [facility] MCH 32.6 27.1 - 33.3 pg [facility] MCHC 32.8 32.3 - 35.7 g/dL [facility] RDW CV 13.5 11.1 - 14.9 % [facility] RDW SD 49.9(H) 35.7 - 48.1 fL [facility] NRBC abs 0.00 0.00 - 0.01 K/cumm [facility] Blood 10/01/2024 1:24 AM CDT 10/01/2024 1:39 AM CDT us Dipti Dalal MD LAB BLOOD ORDERABLES Final Resul t [facility] [address] Department of Laboratories [place], [place] [id number] * (ABNORMAL) Basic metabolic panel (10/01/2024 1:24 AM CDT) Pathologist [facility] Sodium 138 135 - 145 mmol/L Potassium, pl 4.5 3.3 - 4.9 mmol/L [facility] Chloride 102 97 - 110 mmol/L [facility] CO2 21(L) 22 - 32 mmol/L [facility] Anion gap 15 2 - 15 mmol/L [facility] BUN 15 6 - 25 mg/dL [facility] Creatinine 0.82 0.80 - 1.30 mg/dL [facility] Glucose 247(H) 70 - 199 mg/dL [facility] Comment: Interpretive Data Fasting glucose >/= 126 mg/dl is diagnostic for diabetes. Fasting is defined as no caloric intake for at least 8 hours. Fasting glucose between 100 mg/dl to 125 mg/dl is diagnostic of prediabetes. In a patient with classic symptoms of hyperglycemia or hyperglycemic crisis, a random glucose >/= 200 mg/dl is diagnostic for diabetes. In the absence of unequivocal hyperglycemia, results should be confirmed by repeat testing. The classification and Diagnosis of Diabetes Diabetes Care 2021; 46: S19-S40. Current interpretive data was last revised 2022. Calcium 8.9 8.5 - 10.3 mg/dL [facility] Blood 10/01/2024 1:24 AM CDT 10/01/2024 1:39 AM CDT Dipti Dalal MD LAB BLOOD ORDERABLES Final Resul t Performing Organization Address [facility] de Phone Number [facility] [address] Department [place] [address] * (ABNORMAL) POCT glucose (09/30/2024 8:10 PM CDT) Glucose, POC 201(H) 70 - 199 mg/dL Comment: For Glucose values <35 mg/dl when Hematocrit is >60 mg/dl,the test may not accurately detect significant hypoglycemia,and testing in the Laboratory should be considered if clinically indicated. Blood 09/30/2024 8:10 PM CDT 09/30/2024 8:10 PM CDT Dipti Dalal MD LAB POCT ORDERABLES - DEVICE Fin al Result Performing Organization Address [facility] Co de Phone Number [facility] [address] Department [place] [address] * (ABNORMAL) POCT glucose (09/30/2024 6:00 PM CDT) Glucose, POC 211(H) 70 - 199 mg/dL Comment: For Glucose values <35 mg/dl when Hematocrit is >60 mg/dl,the test may not accurately detect significant hypoglycemia,and testing in the Laboratory should be considered if clinically indicated. Blood 09/30/2024 6:00 PM CDT 09/30/2024 6:00 PM CDT Result [facility] Dipti Dalal MD LAB POCT ORDERABLES - DEVICE Fin al Result Performing Organization Address [facility] de Phone Number [facility] [address] Department [place] [address] * (ABNORMAL) POCT glucose (09/30/2024 12:55 PM CDT) Glucose, POC 219(H) 70 - 199 mg/dL Comment: For Glucose values <35 mg/dl when Hematocrit is >60 mg/dl,the test may not accurately detect significant hypoglycemia,and testing in the Laboratory should be considered if clinically indicated. Blood 09/30/2024 12:5 5 PM CDT 09/30/2024 12:55 PM CDT Result [facility] Dipti Dalal MD LAB POCT ORDERABLES - DEVICE Fin al Result Performing Organization Address [facility] de Phone Number [facility] [address] [place] [address] * POCT glucose (09/30/2024 8:46 AM CDT) Glucose, POC 189 70 - 199 mg/dL Comment: For Glucose values <35 mg/dl when Hematocrit is >60 mg/dl,the test may not accurately detect significant hypoglycemia,and testing in the Laboratory should be considered if clinically indicated. Blood 09/30/2024 8:46 AM CDT 09/30/2024 8:46 AM CDT Result [facility] Dipti Dalal MD LAB POCT ORDERABLES - DEVICE Fin al Result Performing Organization Address [facility] Co de Phone Number [facility] [address] Department [place] [address] * eGFR (09/30/2024 3:46 AM CDT) eGFR >90 >=60 mL/min/1. 73 m2 Comment: Interpretive Data Reference Interval Normal >/= 90 mL/min/1.73m2 Mildly decreased* 60 - 89 mL/min/1.73m2 Mildly to moderately decreased 45 - 59 mL/min/1.73m2 Moderately to severely decreased 30 - 44 mL/min/1.73m2 Severely decreased 15 - 29 mL/min/1.73m2 Kidney Failure < 15 mL/min/1.73m2 *Relative to young adult level Estimated glomerular filtration rate is determined by the 2020 CKD-EPI equation recommended by the National Kidney Foundation (A Unifying Approach to GFR Estimation: Recommendations of the NKF-ASK Task Force on Reassessing the Inclusion of Race in Diagnosing Kidney Disease, JASN 2020). The CKD-EPI equation should not be used for patients with unstable renal function and has not been validated in children and those over 70. Current interpretive data was last reviewed 2021. Blood 09/30/2024 3:46 AM CDT 09/30/2024 4:36 AM CDT us Dipti Dalal MD LAB BLOOD ORDERABLES Final Resul t [facility] [address] Department [place] [address] * Differential, auto (09/30/2024 3:46 AM CDT) Pathologist [facility] Neutrophil abs 3.4 1.5 - 6.5 K/cumm Imm gran abs 0.1 0.0 - 0.1 K/cumm [facility] Lymphocyte abs 1.7 0.8 - 3.3 K/cumm [facility] Monocyte abs 0.5 0.2 - 0.8 K/cumm [facility] Eosinophil abs 0.1 0.0 - 0.5 K/cumm [facility] Basophil abs 0.0 0.0 - 0.1 K/cumm [facility] Neutrophil pct 58.6 % [facility] Comment: Interpretive Data Percent cell count reference ranges are not reported, since discordance with absolute values may lead to misinterpretation of CBC data. Current Interpretive Data was last revised on 2017. Imm gran pct 1.0 % [facility] Comment: Interpretive Data Percent cell count reference ranges are not reported, since discordance with absolute values may lead to misinterpretation of CBC data. Current Interpretive Data was last revised on 2017. Lymphocyte pct 29.4 % [facility] Comment: Interpretive Data Percent cell count reference ranges are not reported, since discordance with absolute values may lead to misinterpretation of CBC data. Current Interpretive Data was last revised on 2017. Monocyte pct 8.0 % [facility] Comment: Interpretive Data Percent cell count reference ranges are not reported, since discordance with absolute values may lead to misinterpretation of CBC data. Current Interpretive Data was last revised on 2017. Eosinophil pct 2.3 % [facility] Comment: Interpretive Data Percent cell count reference ranges are not reported, since discordance with absolute values may lead to misinterpretation of CBC data. Current Interpretive Data was last revised on 2017. Basophil pct 0.7 % [facility] Comment: Interpretive Data Percent cell count reference ranges are not reported, since discordance with absolute values may lead to misinterpretation of CBC data. Current Interpretive Data was last revised on 2017. Blood 09/30/2024 3:46 AM CDT 09/30/2024 4:35 AM CDT us Dipti Dalal MD LAB BLOOD ORDERABLES Final Resul t [facility] [address] Department [place] [address] * (ABNORMAL) CBC with auto differential (09/30/2024 3:46 AM CDT) WBC 5.8 3.8 - 9.9 K/cumm Hgb 14.6 13.0 - 17.5 g/dL [facility] Hct 45.4 38.9 - 50.3 % [facility] Plt 135(L) 150 - 400 K/cumm [facility] MPV 9.0(L) 9.1 - 12.3 fL [facility] RBC 4.53 4.30 - 5.80 M/cumm [facility] MCV 100.2(H) 81.3 - 96.4 fL [facility] MCH 32.2 27.1 - 33.3 pg [facility] MCHC 32.2(L) 32.3 - 35.7 g/dL [facility] RDW CV 13.7 11.1 - 14.9 % [facility] RDW SD 50.8(H) 35.7 - 48.1 fL [facility] NRBC abs 0.00 0.00 - 0.01 K/cumm [facility] Blood 09/30/2024 3:46 AM CDT 09/30/2024 4:35 AM CDT Result [facility] Dipti Dalal MD LAB BLOOD ORDERABLES Final Resul t Performing Organization Address [facility] Co de Phone Number [facility] [address] Department [employer] [place], [place] [id number] * (ABNORMAL) aPTT (09/30/2024 3:46 AM CDT) aPTT 86(H) 28 - 38 sec Comment: Interpretive Data Heparin therapeutic range: 66.0 - 100.0 seconds. Range based on correlation with therapeutic heparin activity range of 0.3 - 0.7 Units/mL. Current interpretive data was last revised on 2023. Blood 09/30/2024 3:46 AM CDT 09/30/2024 4:33 AM CDT us Marshall Chin MD LAB BLOOD ORDERABLES Final Result Performing Organization Address City/[facility]/ZIP Co de Phone Number [facility] [address] Department [employer] [place], [place] [phone] * (ABNORMAL) Basic metabolic panel (09/30/2024 3:46 AM CDT) [facility] Sodium 136 135 - 145 mmol/L Potassium, pl 3.8 3.3 - 4.9 mmol/L [facility] Chloride 100 97 - 110 mmol/L [facility] CO2 21(L) 22 - 32 mmol/L [facility] Anion gap 15 2 - 15 mmol/L [facility] BUN 11 6 - 25 mg/dL [facility] Creatinine 0.66(L) 0.80 - 1.30 mg/dL [facility] Glucose 209(H) 70 - 199 mg/dL [facility] Comment: Interpretive Data Fasting glucose >/= 126 mg/dl is diagnostic for diabetes. Fasting is defined as no caloric intake for at least 8 hours. Fasting glucose between 100 mg/dl to 125 mg/dl is diagnostic of prediabetes. In a patient with classic symptoms of hyperglycemia or hyperglycemic crisis, a random glucose >/= 200 mg/dl is diagnostic for diabetes. In the absence of unequivocal hyperglycemia, results should be confirmed by repeat testing. The classification and Diagnosis of Diabetes Diabetes Care 202; 46: S19-S40. Current interpretive data was last revised 2022. Calcium 8.8 8.5 - 10.3 mg/dL [facility] Blood 09/30/2024 3:46 AM CDT 09/30/2024 4:36 AM CDT us Dipti Dalal MD LAB BLOOD ORDERABLES Final Resul t [facility] [address] Department [place] [address] * Type and screen (09/30/2024 3:42 AM CDT) ABO Rh A Positive Kin, indirect Negative [facility] Blood 09/30/2024 3:42 AM CDT 09/30/2024 4:41 AM CDT Narrative [facility] - 09/30/2024 5:53 AM CDT PRE-OP CABG 10/01/24 Has the patient had Daratumumab or Isatuximab in the past 6 months?->No us Matias Limon MD LAB BLOOD BANK TEST ORDE AMADOR Final Result [facility] [address] [facility] [place] [address] * (ABNORMAL) POCT glucose (09/29/2024 8:52 PM CDT) Glucose, POC 285(H) 70 - 199 mg/dL Comment: For Glucose values <35 mg/dl when Hematocrit is >60 mg/dl,the test may not accurately detect significant hypoglycemia,and testing in the Laboratory should be considered if clinically indicated. Blood 09/29/2024 8:52 PM CDT 09/29/2024 8:52 PM CDT Dipti Dalal MD LAB POCT ORDERABLES - DEVICE Fin al Result Performing Organization Address [facility] Co de Phone Number [facility] [address] [place] [address] * (ABNORMAL) POCT glucose (09/29/2024 5:57 PM CDT) Glucose, POC 210(H) 70 - 199 mg/dL Comment: For Glucose values <35 mg/dl when Hematocrit is >60 mg/dl,the test may not accurately detect significant hypoglycemia,and testing in the Laboratory should be considered if clinically indicated. Blood 09/29/2024 5:57 PM CDT 09/29/2024 5:57 PM CDT Dipti Dalal MD LAB POCT ORDERABLES - DEVICE Fin al Result Performing Organization Address City/[facility] Co de Phone Number [facility] [address] [place] [address] * (ABNORMAL) aPTT (09/29/2024 2:25 PM CDT) aPTT 71(H) 28 - 38 sec Comment: Interpretive Data Heparin therapeutic range: 66.0 - 100.0 seconds. Range based on correlation with therapeutic heparin activity range of 0.3 - 0.7 Units/mL. Current interpretive data was last revised on 2023. Blood 09/29/2024 2:25 PM CDT 09/29/2024 2:49 PM CDT Marshall Chin MD LAB BLOOD ORDERABLES Final Result Performing Organization Address [facility] Co de Phone Number [facility] [address] Department [place] [address] * POCT glucose (09/29/2024 12:34 PM CDT) Glucose, POC 172 70 - 199 mg/dL Comment: For Glucose values <35 mg/dl when Hematocrit is >60 mg/dl,the test may not accurately detect significant hypoglycemia,and testing in the Laboratory should be considered if clinically indicated. Blood 09/29/2024 12:3 4 PM CDT 09/29/2024 12:34 PM CDT Result [facility] Dipti Dalal MD LAB POCT ORDERABLES - DEVICE Fin al Result Performing Organization Address [facility] Co de Phone Number [facility] [address] [place] [address] * POCT glucose (09/29/2024 8:46 AM CDT) Glucose, POC 179 70 - 199 mg/dL Comment: For Glucose values <35 mg/dl when Hematocrit is >60 mg/dl,the test may not accurately detect significant hypoglycemia,and testing in the Laboratory should be considered if clinically indicated. Blood 09/29/2024 8:46 AM CDT 09/29/2024 8:46 AM CDT Result [facility] Dipti Dalal MD LAB POCT ORDERABLES - DEVICE Fin al Result Performing Organization Address [facility] Co de Phone Number [facility] [address] [place] [address] * (ABNORMAL) aPTT (09/29/2024 7:56 AM CDT) aPTT 75(H) 28 - 38 sec Comment: Interpretive Data Heparin therapeutic range: 66.0 - 100.0 seconds. Range based on correlation with therapeutic heparin activity range of 0.3 - 0.7 Units/mL. Current interpretive data was last revised on 2023. Blood 09/29/2024 7:56 AM CDT 09/29/2024 8:23 AM CDT Dipti Dalal MD LAB BLOOD ORDERABLES Final Resul t Performing Organization Address City/[facility]/ZIP Co de Phone Number [facility] [address] [place] [address] * eGFR (09/29/2024 4:37 AM CDT) eGFR >90 >=60 mL/min/1. 73 m2 Comment: Interpretive Data Reference Interval Normal >/= 90 mL/min/1.73m2 Mildly decreased* 60 - 89 mL/min/1.73m2 Mildly to moderately decreased 45 - 59 mL/min/1.73m2 Moderately to severely decreased 30 - 44 mL/min/1.73m2 Severely decreased 15 - 29 mL/min/1.73m2 Kidney Failure < 15 mL/min/1.73m2 *Relative to young adult level Estimated glomerular filtration rate is determined by the 2020 CKD-EPI equation recommended by the National Kidney Foundation (A Unifying Approach to GFR Estimation: Recommendations of the NKF-ASK Task Force on Reassessing the Inclusion of Race in Diagnosing Kidney Disease, JASN 2020). The CKD-EPI equation should not be used for patients with unstable renal function and has not been validated in children and those over 70. Current interpretive data was last reviewed 2021. Blood 09/29/2024 4:37 AM CDT 09/29/2024 5:52 AM CDT Dipti Dalal MD LAB BLOOD ORDERABLES Final Resul t Performing Organization Address City/[facility]/ZIP Co de Phone Number [facility] [address] [place] [address] * Differential, auto (09/29/2024 4:37 AM CDT) Neutrophil abs 3.5 1.5 - 6.5 K/cumm Imm gran abs 0.0 0.0 - 0.1 K/cumm [facility] Lymphocyte abs 2.0 0.8 - 3.3 K/cumm [facility] Monocyte abs 0.5 0.2 - 0.8 K/cumm [facility] Eosinophil abs 0.1 0.0 - 0.5 K/cumm [facility] Basophil abs 0.0 0.0 - 0.1 K/cumm [facility] Neutrophil pct 56.9 % [facility] Comment: Interpretive Data Percent cell count reference ranges are not reported, since discordance with absolute values may lead to misinterpretation of CBC data. Current Interpretive Data was last revised on 2017. Imm gran pct 0.6 % [facility] Comment: Interpretive Data Percent cell count reference ranges are not reported, since discordance with absolute values may lead to misinterpretation of CBC data. Current Interpretive Data was last revised on 2017. Lymphocyte pct 32.6 % [facility] Comment: Interpretive Data Percent cell count reference ranges are not reported, since discordance with absolute values may lead to misinterpretation of CBC data. Current Interpretive Data was last revised on 2017. Monocyte pct 7.8 % [facility] Comment: Interpretive Data Percent cell count reference ranges are not reported, since discordance with absolute values may lead to misinterpretation of CBC data. Current Interpretive Data was last revised on 2017. Eosinophil pct 1.6 % [facility] Comment: Interpretive Data Percent cell count reference ranges are not reported, since discordance with absolute values may lead to misinterpretation of CBC data. Current Interpretive Data was last revised on 2017. Basophil pct 0.5 % [facility] Comment: Interpretive Data Percent cell count reference ranges are not reported, since discordance with absolute values may lead to misinterpretation of CBC data. Current Interpretive Data was last revised on 2017. Blood 09/29/2024 4:37 AM CDT 09/29/2024 5:53 AM CDT Dipti Dalal MD LAB BLOOD ORDERABLES Final Resul t Performing Organization Address City/[facility]/ZIP Co de Phone Number [facility] [address] [facility] [place] [address] * Check Sample (09/29/2024 4:37 AM CDT) Pathologist [facility] ABO Rh A Positive MBC HCLL OTHER 09/29/2024 4:37 AM CDT 09/29/2024 5:51 PM CDT Dipti Dalal MD LAB BLOOD ORDERABLES Final Resul t Performing Organization Address [facility] de Phone Number [facility] [address] [place] [address] MBC * (ABNORMAL) CBC with auto differential (09/29/2024 4:37 AM CDT) [facility] WBC 6.2 3.8 - 9.9 K/cumm Hgb 15.4 13.0 - 17.5 g/dL [facility] Hct 46.9 38.9 - 50.3 % [facility] Plt 92(L) 150 - 400 K/cumm [facility] MPV 10.2 9.1 - 12.3 fL [facility] RBC 4.62 4.30 - 5.80 M/cumm [facility] MCV 101.5(H) 81.3 - 96.4 fL [facility] MCH 33.3 27.1 - 33.3 pg [facility] MCHC 32.8 32.3 - 35.7 g/dL [facility] RDW CV 14.0 11.1 - 14.9 % [facility] RDW SD 53.1(H) 35.7 - 48.1 fL [facility] NRBC abs 0.00 0.00 - 0.01 K/cumm [facility] Blood 09/29/2024 4:37 AM CDT 09/29/2024 5:53 AM CDT Dipti Dalal MD LAB BLOOD ORDERABLES Final Resul t Performing Organization Address [facility]/ZIP Co de Phone Number [facility] [address] [place] [address] * (ABNORMAL) Basic metabolic panel (09/29/2024 4:37 AM CDT) Sodium 138 135 - 145 mmol/L Potassium, pl 4.7 3.3 - 4.9 mmol/L [facility] Comment:Hemolyzed; potassium value may be falsely elevated by as much as 0.6 - 1.0 mmol/L. Suggest redraw and reanalysis Chloride 101 97 - 110 mmol/L [facility] CO2 22 22 - 32 mmol/L [facility] Anion gap 15 2 - 15 mmol/L [facility] BUN 12 6 - 25 mg/dL [facility] Creatinine 0.74(L) 0.80 - 1.30 mg/dL [facility] Glucose 162 70 - 199 mg/dL [facility] Comment: Interpretive Data Fasting glucose >/= 126 mg/dl is diagnostic for diabetes. Fasting is defined as no caloric intake for at least 8 hours. Fasting glucose between 100 mg/dl to 125 mg/dl is diagnostic of prediabetes. In a patient with classic symptoms of hyperglycemia or hyperglycemic crisis, a random glucose >/= 200 mg/dl is diagnostic for diabetes. In the absence of unequivocal hyperglycemia, results should be confirmed by repeat testing. The classification and Diagnosis of Diabetes Diabetes Care 2021; 46: S19-S40. Current interpretive data was last revised 2022. Calcium 9.3 8.5 - 10.3 mg/dL [facility] Blood 09/29/2024 4:37 AM CDT 09/29/2024 5:52 AM CDT Dipti Dalal MD LAB BLOOD ORDERABLES Final Resul t Performing Organization Address [facility]/ZIP Co de Phone Number [facility] [address] Department [place] [address] * aPTT (09/29/2024 12:27 AM CDT) aPTT 117.0 28 - 38 sec Comment: Interpretive Data Heparin therapeutic range: 66.0 - 100.0 seconds. Range based on correlation with therapeutic heparin activity range of 0.3 - 0.7 Units/mL. Current interpretive data was last revised on 2023. Blood 09/29/2024 12:2 7 AM CDT 09/29/2024 12:27 AM CDT Dipti Dalal MD LAB BLOOD ORDERABLES Final Resul t Performing Organization Address [facility] Co de Phone Number [facility] [address] [facility] [employer] [place], [place] [id number] * (ABNORMAL) POCT glucose (09/28/2024 7:58 PM CDT) Glucose, POC 227(H) 70 - 199 mg/dL Comment: For Glucose values <35 mg/dl when Hematocrit is >60 mg/dl,the test may not accurately detect significant hypoglycemia,and testing in the Laboratory should be considered if clinically indicated. Blood 09/28/2024 7:58 PM CDT 09/28/2024 7:58 PM CDT Dipti Dalal MD LAB POCT ORDERABLES - DEVICE Fin al Result Performing Organization Address [facility] Co de Phone Number [facility] [address] Department [place] [address] * (ABNORMAL) POCT glucose (09/28/2024 5:54 PM CDT) Glucose, POC 207(H) 70 - 199 mg/dL Comment: For Glucose values <35 mg/dl when Hematocrit is >60 mg/dl,the test may not accurately detect significant hypoglycemia,and testing in the Laboratory should be considered if clinically indicated. Blood 09/28/2024 5:54 PM CDT 09/28/2024 5:54 PM CDT Dipti Dalal MD LAB POCT ORDERABLES - DEVICE Fin al Result Performing Organization Address [facility] Co de Phone Number [facility] [address] [facility] [address] [place], [place] [id number] * aPTT (09/28/2024 3:49 PM CDT) aPTT 37 28 - 38 sec Comment: Interpretive Data Heparin therapeutic range: 66.0 - 100.0 seconds. Range based on correlation with therapeutic heparin activity range of 0.3 - 0.7 Units/mL. Current interpretive data was last revised on 2023. Blood 09/28/2024 3:49 PM CDT 09/28/2024 4:07 PM CDT Dipti Dalal MD LAB BLOOD ORDERABLES Final Resul t Performing Organization Address [facility] de Phone Number [facility] [address] Department [place] [address] * XR Chest PA Lateral 2 View (09/28/2024 2:39 PM CDT) Anatomical Region Laterality Modality Body, Chest N/A Computed Radiogr aphy 09/28/2024 2:41 PM CDT Impressions 09/28/2024 2:41 PM CDT No active infiltrative. Electronically signed by: Berenice Moore M.D. Narrative 09/28/2024 2:41 PM CDT CHEST 2 VIEWS DATE: 09/28/2024 2:00 PM INDICATION: Pre-op CABG baseline TECHNIQUE: PA and lateral COMPARISON: 09/26/2024 FINDINGS: Heart size upper limits. Mediastinum unremarkable. Lungs are clear. Old fracture deformity bilateral ribs unchanged. Procedure Note Berenice Moore MD - 09/28/2024 CHEST 2 VIEWS DATE: 09/28/2024 2:00 PM INDICATION: Pre-op CABG baseline TECHNIQUE: PA and lateral COMPARISON: 09/26/2024 FINDINGS: Heart size upper limits. Mediastinum unremarkable. Lungs are clear. Old fracture deformity bilateral ribs unchanged. IMPRESSION: No active infiltrative. Electronically signed by: Berenice Moore M.D. Matias Limon MD IMG XR PROCEDURES Final Result * Prepare RBC: 2 Units (09/28/2024 12:53 PM CDT) Pathologist [facility] Product code [id number] [facility] Unit Number [id number] 2-I [facility] Product Blood Type APOS [facility] Dispense Status RETURNED [facility] Product code [id number] Unit Number [id number] 6-* [facility] Product Blood Type APOS [facility] Dispense Status RETURNED [facility] Blood 09/28/2024 12:5 3 PM CDT Narrative [facility] - 10/01/2024 8:35 AM CDT Specify Procedure:->CABG Are special requirements needed? (All products are leukoreduced and CMV- safe)- >No Date required:-[id number] LRRBC # of [id number] Reasons:-Hold for procedure (specify procedure)} Matias Limon MD BLOOD BANK PRODUCT ORDER MICAH Final Result [facility] [address] Department [place] [address] * (ABNORMAL) POCT glucose (09/28/2024 11:00 AM CDT) [facility] Glucose, POC 230(H) 70 - 199 mg/dL Comment: For Glucose values <35 mg/dl when Hematocrit is >60 mg/dl,the test may not accurately detect significant hypoglycemia,and testing in the Laboratory should be considered if clinically indicated. Blood 09/28/2024 11:0 0 AM CDT 09/28/2024 11:00 AM CDT Dipti Dalal MD LAB POCT ORDERABLES - DEVICE Fin al Result Performing Organization Address [facility] Co de Phone Number [facility] [address] Department [place] [address] * eGFR (09/28/2024 8:28 AM CDT) eGFR >90 >=60 mL/min/1. 73 m2 Comment: Interpretive Data Reference Interval Normal >/= 90 mL/min/1.73m2 Mildly decreased* 60 - 89 mL/min/1.73m2 Mildly to moderately decreased 45 - 59 mL/min/1.73m2 Moderately to severely decreased 30 - 44 mL/min/1.73m2 Severely decreased 15 - 29 mL/min/1.73m2 Kidney Failure < 15 mL/min/1.73m2 *Relative to young adult level Estimated glomerular filtration rate is determined by the 2020 CKD-EPI equation recommended by the National Kid[employer] (A Unifying Approach to GFR Estimation: Recommendations of the NKF-ASK Task Force on Reassessing the Inclusion of Race in Diagnosing Kidney Disease, JASN 2020). The CKD-EPI equation should not be used for patients with unstable renal function and has not been validated in children and those over 70. Current interpretive data was last reviewed 2021. Blood 09/28/2024 8:28 AM CDT 09/28/2024 8:39 AM CDT Des Vazquez MD LAB BLOOD ORDERABLES Fi nal Result Performing Organization Address [facility] Co de Phone Number [facility] [address] Department [place] [address] * Differential, auto (09/28/2024 8:28 AM CDT) Neutrophil abs 3.6 1.5 - 6.5 K/cumm Imm gran abs 0.1 0.0 - 0.1 K/cumm [facility] Lymphocyte abs 1.7 0.8 - 3.3 K/cumm [facility] Monocyte abs 0.5 0.2 - 0.8 K/cumm [facility] Eosinophil abs 0.1 0.0 - 0.5 K/cumm [facility] Basophil abs 0.0 0.0 - 0.1 K/cumm [facility] Neutrophil pct 61.0 % [facility] Comment: Interpretive Data Percent cell count reference ranges are not reported, since discordance with absolute values may lead to misinterpretation of CBC data. Current Interpretive Data was last revised on 2017. Imm gran pct 1.0 % [facility] Comment: Interpretive Data Percent cell count reference ranges are not reported, since discordance with absolute values may lead to misinterpretation of CBC data. Current Interpretive Data was last revised on 2017. Lymphocyte pct 28.5 % [facility] Comment: Interpretive Data Percent cell count reference ranges are not reported, since discordance with absolute values may lead to misinterpretation of CBC data. Current Interpretive Data was last revised on 2017. Monocyte pct 7.5 % [facility] Comment: Interpretive Data Percent cell count reference ranges are not reported, since discordance with absolute values may lead to misinterpretation of CBC data. Current Interpretive Data was last revised on 2017. Eosinophil pct 1.5 % [facility] Comment: Interpretive Data Percent cell count reference ranges are not reported, since discordance with absolute values may lead to misinterpretation of CBC data. Current Interpretive Data was last revised on 2017. Basophil pct 0.5 % [facility] Comment: Interpretive Data Percent cell count reference ranges are not reported, since discordance with absolute values may lead to misinterpretation of CBC data. Current Interpretive Data was last revised on 2017. Blood 09/28/2024 8:28 AM CDT 09/28/2024 8:39 AM CDT us Des Vazquez MD LAB BLOOD ORDERABLES Fi nal Result [facility] [address] Department [place] [address] * (ABNORMAL) CBC with auto differential (09/28/2024 8:28 AM CDT) WBC 6.0 3.8 - 9.9 K/cumm Hgb 15.0 13.0 - 17.5 g/dL [facility] Hct 45.3 38.9 - 50.3 % [facility] Plt 143(L) 150 - 400 K/cumm [facility] MPV 8.6(L) 9.1 - 12.3 fL [facility] RBC 4.59 4.30 - 5.80 M/cumm [facility] MCV 98.7(H) 81.3 - 96.4 fL [facility] MCH 32.7 27.1 - 33.3 pg [facility] MCHC 33.1 32.3 - 35.7 g/dL [facility] RDW CV 14.0 11.1 - 14.9 % [facility] RDW SD 50.6(H) 35.7 - 48.1 fL [facility] NRBC abs 0.00 0.00 - 0.01 K/cumm [facility] Blood 09/28/2024 8:28 AM CDT 09/28/2024 8:39 AM CDT Des Vazquez MD LAB BLOOD ORDERABLES Fi nal Result [facility] [address] [place] [address] * (ABNORMAL) aPTT (09/28/2024 8:28 AM CDT) aPTT 43(H) 28 - 38 sec Comment: Interpretive Data Heparin therapeutic range: 66.0 - 100.0 seconds. Range based on correlation with therapeutic heparin activity range of 0.3 - 0.7 Units/mL. Current interpretive data was last revised on 2023. Blood 09/28/2024 8:28 AM CDT 09/28/2024 8:40 AM CDT Julius Perez DO LAB BLOOD ORDERABLES F inal Result [facility] [address] Department [employer] [place] [address] * Magnesium (09/28/2024 8:28 AM CDT) Pathologist [facility] Magnesium 1.9 1.4 - 2.5 mg/dL Blood 09/28/2024 8:28 AM CDT 09/28/2024 8:39 AM CDT us Des Vazquez MD LAB BLOOD ORDERABLES Fi nal Result [facility] [address] Department [place] [address] * (ABNORMAL) Comprehensive metabolic panel (09/28/2024 8:28 AM CDT) Pathologist [facility] Sodium 137 135 - 145 mmol/L Potassium, pl 4.2 3.3 - 4.9 mmol/L [facility] Chloride 99 97 - 110 mmol/L [facility] CO2 25 22 - 32 mmol/L [facility] Anion gap 13 2 - 15 mmol/L [facility] BUN 15 6 - 25 mg/dL [facility] Creatinine 0.68(L) 0.80 - 1.30 mg/dL [facility] Glucose 174 70 - 199 mg/dL [facility] Comment: Interpretive Data Fasting glucose >/= 126 mg/dl is diagnostic for diabetes. Fasting is defined as no caloric intake for at least 8 hours. Fasting glucose between 100 mg/dl to 125 mg/dl is diagnostic of prediabetes. In a patient with classic symptoms of hyperglycemia or hyperglycemic crisis, a random glucose >/= 200 mg/dl is diagnostic for diabetes. In the absence of unequivocal hyperglycemia, results should be confirmed by repeat testing. The classification and Diagnosis of Diabetes Diabetes Care 2021; 46: S19-S40. Current interpretive data was last revised 2022. Calcium 9.1 8.5 - 10.3 mg/dL [facility] Bilirubin, total 0.5 0.1 - 1.2 mg/dL [facility] Protein, pl 6.8 6.5 - 8.5 g/dL [facility] Albumin 4.2 3.5 - 5.0 g/dL [facility] Alk phos 65 40 - 130 Units/L [facility] ALT 25 7 - 55 Units/L [facility] AST 19 10 - 50 Units/L [facility] Blood 09/28/2024 8:28 AM CDT 09/28/2024 8:39 AM CDT us Des Vazquez MD LAB BLOOD ORDERABLES Fi nal Result Performing Organization Address City/[facility]/ZIP Co de Phone Number [facility] [address] Department [place] [address] * POCT glucose (09/28/2024 8:27 AM CDT) Glucose, POC 170 70 - 199 mg/dL Comment: For Glucose values <35 mg/dl when Hematocrit is >60 mg/dl,the test may not accurately detect significant hypoglycemia,and testing in the Laboratory should be considered if clinically indicated. Blood 09/28/2024 8:27 AM CDT 09/28/2024 8:27 AM CDT us Dipti Dalal MD LAB POCT ORDERABLES - DEVICE Fin al Result Performing Organization Address [facility] Co de Phone Number [facility] [address] Department [place] [address] * POCT glucose (09/28/2024 3:17 AM CDT) Glucose, POC 184 70 - 199 mg/dL Blood 09/28/2024 3:17 AM CDT 09/28/2024 3:17 AM CDT us Georgina Meyer MD LAB POCT ORDERABLES - DEVICE Fi nal Result Performing Organization Address City/[facility]/ZIP Co de Phone Number [facility] ([place]) [address] [facility] Department [place] [address] * aPTT (09/28/2024 1:01 AM CDT) aPTT 28 28 - 38 sec [facility] ([place]) Comment: Interpretive Data Heparin therapeutic range: 66.0 - 100.0 seconds. Range based on correlation with therapeutic heparin activity range of 0.3 - 0.7 Units/mL. Current interpretive data was last revised on 2023. Blood 09/28/2024 1:01 AM CDT 09/28/2024 1:04 AM CDT Georgina Meyer MD LAB BLOOD ORDERABLES Final Resu lt Performing Organization Address [facility]/ZIP Co de Phone Number [facility] ([place]) [address] [facility] [place] [address] * (ABNORMAL) POCT glucose (09/27/2024 8:56 PM CDT) Glucose, POC 229(H) 70 - 199 mg/dL Comment:Glu2: RN/ Notified Blood 09/27/2024 8:56 PM CDT 09/27/2024 8:56 PM CDT Georgina Meyer MD LAB POCT ORDERABLES - DEVICE Fi nal Result Performing Organization Address [facility] Co de Phone Number [facility] ([place]) [address] [place] [address] [place] [address] * (ABNORMAL) POCT glucose (09/27/2024 4:48 PM CDT) Glucose, POC 317(H) 70 - 199 mg/dL Blood 09/27/2024 4:48 PM CDT 09/27/2024 4:48 PM CDT eGorgina Meyer MD LAB POCT ORDERABLES - DEVICE Fi nal Result Performing Organization Address [facility] Co de Phone Number [facility] ([place]) [address] [facility] [place] [address] * (ABNORMAL) aPTT (09/27/2024 3:25 PM CDT) aPTT 45(H) 28 - 38 sec [facility] ([place]) Comment: Interpretive Data Heparin therapeutic range: 66.0 - 100.0 seconds. Range based on correlation with therapeutic heparin activity range of 0.3 - 0.7 Units/mL. Current interpretive data was last revised on 2023. Blood 09/27/2024 3:25 PM CDT 09/27/2024 3:27 PM CDT Narrative
--- OUTSIDE RECORDS SUMMARY | 2024-10-29 09:36 | XMS_ITS | Referral Summary ---
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 Name Role Phone Vernon Paula MD Primary Care Provider [phone] Brien Flowers MD Unavailable [phone] Encounters Date Type Department Care Team Description 10/22/2024 Telephone Cardiovascular and Thoracic Surgery [address] [place] [address] [address] [address] Matias Limon MD 10/16/2024 Home Care Visit [address] [address] [address] [place] [address] Alyssia Vásquez, RN CARE CONFERENCE 10/16/2024 2:00 PM CDT Home Care Visit [address] [place] [address] Alyssia Vásquez, RN SN HOME VISIT 10/12/2024 Orders Only Cardiovascular and Thoracic Surgery [address] [place] [address] [address] [place] [address] Hui Patel NP 10/12/2024 Home Care Visit [address] [address] [place] [address] Alyssia Vásquez, RN TELEPHONE ENCOUNTER 10/12/2024 Telephone Cardiovascular and Thoracic Surgery [address] [place] [address] [address] [place] [address] Matias Limon MD OTHER 10/11/2024 Telephone Cardiovascular and Thoracic Surgery [address] [facility] [address] [place] [address] Matias Limon MD OTHER; Letter for [facility] 10/09/2024 Plan of Care Documentation [address] [place] [address] 10/09/2024 1:00 PM CDT Home Care Visit [address] [place] [address] Alyssia Vásquez, RN SN OASIS START OF CARE 10/08/2024 Telephone [facility] [address] [place] [phone] Fadi Russo EP-C CRShorty Education Call 10/08/2024 Telephone [facility] Home Care Services [address] [place] [address] Rylie Bennett 09/28/2024 4:55 AM CDT - 10/07/2024 1:30 PM CDT Hospital Encounter [address] [place] [address] Des Vazquez MD Baig, Sophia, MD Mauney, Michael Clark, MD Coronary artery disease involving [place] coronary artery of [place] heart with unstable angina pectoris (HCC) (Primary Dx); Hypertension, unspecified type [I10]; Chest pain, unspecified type [R07.9]; Other specified diabetes mellitus with other specified complication, without long-term current use of insulin (HCC) [E13.69]; S/P CABG x 5 Discharge Disposition: Discharge to home, home health skilled care 10/04/2024 Telephone [facility] [address] [place] [address] Outpatient Health 4th Floor [address] [place] [address] Jeri Hudson 10/01/2024 6:45 AM CDT Ancillary Procedure [facility] Operating Room [address] [place] [address] 10/01/2024 9:07 AM CDT Anesthesia Event [facility] Operating Room [address] [place] [phone] Radu Blair MD Peterson, Nathan Scott, CRNA 10/01/2024 9:40 AM CDT - 10/01/2024 3:35 PM CDT Surgery [facility] Operating Room [address] [place] [address] Matias Limon MD CORONARY ARTERY BYPASS GRAFTS 09/28/2024 4:15 AM CDT - 09/28/2024 11:59 PM CDT Hospital Encounter [facility] Emergency, Room R Discharge Disposition: Discharge to home or self care 09/26/2024 9:45 AM CDT - 09/28/2024 4:10 AM CDT Hospital Encounter [facility] Acute Medicine [address] [place] [address] Janay Barahona MD Kheirkhahan, Nazanin, MD Singh, Supriya, MD Acute chest pain (Primary Dx); Gastritis without bleeding, unspecified chronicity, unspecified gastritis type; Malar rash; Atherosclerosis of [place] coronary artery of [place] heart with unstable angina pectoris (HCC) [I25.110] Discharge Disposition: Discharge to a short term hospital for IP 09/27/2024 Orders Only [address] [phone] Des Vazquez MD 09/27/2024 3:30 PM CDT - 09/27/2024 4:35 PM CDT Surgery [facility] Cardiac Catheterization [address] [place] [address] Timbo Norton MD LEFT HEART CATHETERIZATION WITH CORONARY ANGIOGRAPHY AND WITH OR WITHOUT LEFT VENTRICULOGRAM 17238 from Last 3 Months Allergies Active Allergy Reactions Criticality Noted Date [...] with device Inhale 1 puff nightly 05/14/20 24 Active albuterol HFA (PROVENTIL HFA,VENTOLIN HFA,PROAIR HFA) 90 mcg/actuation inhaler Inhale 2 puffs every 4 (four) hours as needed 01/09/20 24 Active ALPRAZolam (XANAX) 0.5 mg tablet Take 1 tablet (0.5 mg total) by mouth 3 (three) times a day as needed for anxiety or sleep 06/30/20 Active gabapentin (NEURONTIN) 300 mg capsule Take 1 capsule (300 mg total) by mouth nightly 06/29/20 24 Active alpha lipoic acid 600 mg capsule [...] by mouth daily 30 tablet 11 09/29/19 025 Discontinued(St op Taking at Discharge) aspirin 81 mg enteric coated tablet Take 1 tablet (81 mg total) by mouth daily 025 Discontinued(St op Taking at Discharge) HYDROcodone-ac etaminophen (NORCO) 5-325 mg per tabletIndicati ons:Pain Take 2 tablets by mouth every 6 (six) hours as needed for pain 40 tablet 10/13/19 025 Discontinued Active Problems Problem Noted Date Diagnosed Date Diabetes mellitus 09/29/2024 Chest pain 09/28/2024 Hypertension 09/28/2024 Atherosclerosis of [place] co ronary artery of [place] heart with unstable angina pectoris 09/27/2024 Coronary artery disease invo lving [place] coronary artery of [place] heart with unstable angina pectoris 09/27/2024 Acute chest pain 09/26/2024 Social History Tobacco Use Types Packs/Day Years [...] materials from doctor or pharmacy Never 10/09/2024 [facility] Utilities Answer Date Recorded In the past 12 months has th e [employer] gas, oil, or water [employer] threatened to shut off services in your [...] 10/04/2024 How often do you attend chur or samaritan services? Never 10/04/2024 Do you belong to any clubs o r organizations such as nondenominational groups, unions, fraternal or athletic groups, or [...] money to buy more. Never true 10/05/19 25 Within the past 12 months, t he [...] any time in the past 12 m [facility], were you homeless or living in a halfway (including now)? No 09/27/2024 Personal Safety Answer Date Recorded Have you ever been in or are you currently in a harmful physical or emotional relationship or is someone making you feel afraid or unsafe? 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 Gender Identity Not on file Sexual Orientation Not on file Last Filed Vital Signs Vital Sign Reading [...] 10/09/2024 1:10 PM CDT Plan of Treatment Not on file Procedures Procedure Name Priority Date/Time Associated Diagnosis [...] 7:44 PM CDT Coronary artery disease involving [place] coronary artery of [place] heart with unstable angina pectoris (HCC) POCT [...] 8:58 PM CDT Coronary artery disease involving [place] coronary artery of [place] heart with unstable angina pectoris (HCC) OXYHEMOGLOBIN, [...] HIGH RANGE Routine 10/01/2024 2:20 PM CDT NM AN PROCEDURE PLACEHOLDER Routine 10/01/2024 2:00 PM [...] HIGH RANGE Routine 10/01/2024 11:10 AM CDT NM AN PROCEDURE PLACEHOLDER Routine 10/01/2024 9:37 AM CDT NM AN CENTRAL LINE QUADRUPLE LUMEN Routine 10/01/2024 9:37 AM CDT NM AN PROCEDURE PLACEHOLDER Routine 10/01/2024 9:37 AM CDT PULMONARY ARTERY CATH Routine 10/01/2024 9:37 AM CDT BW AN SHEATH INTRODUCER PERFORMABLE Routine 10/01/2024 9:37 AM CDT NM AN PROCEDURE PLACEHOLDER Routine 10/01/2024 9:36 AM CDT NM AN PROCEDURE PLACEHOLDER Routine 10/01/2024 9:35 AM CDT NM AN ELECTIVE ENDOTRACHEAL AIRWAY Routine 10/01/2024 9:35 AM CDT POCT ACTIVATED CLOTTING TIME, HIGH RANGE Routine 10/01/2024 9:24 AM CDT PREPARE RBC STAT 10/01/2024 9:12 AM CDT CORONARY ARTERY BYPASS GRAFT 10/01/2024 8:37 AM CDT Coronary artery disease 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 POC Performer [id number] [facility] Blood 10/07/2024 8:14 AM CDT 10/07/2024 8:14 AM CDT us Matias Limon MD LAB POCT ORDERABLES - DE VICE Final Result [facility] [address] Department [place] [address] * XR Chest 1 View - Portable [...] Result * eGFR (10/07/2024 1:39 AM CDT) eGFR >90 >=60 mL/min/1. 73 [...] of Race in Diagnosing Kidney Disease, JASN 202). The CKD-EPI equation should not be used for patients with unstable renal function and has not been validated in children and those over 70. Current interpretive data was last reviewed 2021. Blood 10/07/2024 1:39 AM CDT 10/07/2024 1:52 AM CDT us Maxwell Hughes MD LAB BLOOD ORDERABLES Final Res ult [facility] [address] Department [place] [address] * (ABNORMAL) CBC without differential (10/07/2024 1:39 AM CDT) WBC 8.3 3.8 - 9.9 K/cumm Hgb 10.0(L) 13.0 - 17.5 g/dL [facility] Hct 31.7(L) 38.9 - 50.3 % [facility] Plt 221 150 - 400 K/cumm [facility] MPV 8.8(L) 9.1 - 12.3 fL [facility] RBC 3.11(L) 4.30 - 5.80 M/cumm [facility] MCV 101.9(H) 81.3 - 96.4 fL [facility] MCH 32.2 27.1 - 33.3 pg [facility] MCHC 31.5(L) 32.3 - 35.7 g/dL [facility] RDW CV 13.9 11.1 - 14.9 % [facility] RDW SD 51.4(H) 35.7 - 48.1 fL [facility] NRBC abs 0.00 0.00 - 0.01 K/cumm [facility] Blood 10/07/2024 1:39 AM CDT 10/07/2024 1:52 AM CDT Maxwell Hughes MD LAB BLOOD ORDERABLES Final Res ult Performing Organization Address City/[facility] Co de Phone Number [facility] [address] [facility] [place] [address] * Magnesium (10/07/2024 1:39 AM CDT) Magnesium 1.9 1.4 - 2.5 mg/dL Blood 10/07/2024 1:39 AM CDT 10/07/2024 1:52 AM CDT Maxwell Hughes MD LAB BLOOD ORDERABLES Final Res ult Performing Organization Address [facility] de Phone Number [facility] [address] [email or web address] [address] * Renal function panel (10/07/2024 1:39 AM CDT) Sodium 137 135 - 145 mmol/L Potassium, pl 3.9 3.3 - 4.9 mmol/L [facility] Chloride 97 97 - 110 mmol/L [facility] CO2 28 22 - 32 mmol/L [facility] Anion gap 12 2 - 15 mmol/L [facility] BUN 16 6 - 25 mg/dL [facility] Creatinine 0.81 0.80 - 1.30 mg/dL [facility] Glucose 188 70 - 199 mg/dL [facility] Comment: Interpretive Data Fasting glucose [...] 2022. Calcium 8.9 8.5 - 10.3 mg/dL [facility] Phosphorus, pl 4.4 2.3 - 4.5 mg/dL [facility] Albumin 3.5 3.5 - 5.0 g/dL [facility] Blood 10/07/2024 1:39 AM CDT 10/07/2024 1:52 AM CDT us Maxwell Hughes MD LAB BLOOD ORDERABLES Final Res ult [facility] [address] Department [place] [address] * XR Chest 1 Vw (10/06/2024 9:32 [...] * POCT glucose (10/06/2024 8:53 PM CDT) Glucose, POC 191 70 - 199 mg/dL Comment: For Glucose values <35 mg/dl when Hematocrit is >60 mg/dl,the test may not accurately detect significant hypoglycemia,and testing in the Laboratory should be considered if clinically indicated. POC Performer [id number] [facility] Blood 10/06/2024 8:53 PM CDT 10/06/2024 8:53 PM CDT Matias Limon MD LAB POCT ORDERABLES - DE VICE Final Result [facility] [address] Department [place] [address] * POCT glucose (10/06/2024 5:08 PM CDT) Glucose, POC 172 70 - 199 mg/dL Comment: For Glucose values <35 mg/dl when Hematocrit is >60 mg/dl,the test may not accurately detect significant hypoglycemia,and testing in the Laboratory should be considered if clinically indicated. POC Performer [phone] [facility] Blood 10/06/2024 5:08 PM CDT 10/06/2024 5:08 PM CDT us Matias Limon MD LAB POCT ORDERABLES - DE VICE Final Result [facility] [address] Department [place] [address] * XR Chest 1 Vw (10/06/2024 1:28 [...] be considered if clinically indicated. POC Performer [id number] [facility] Blood 10/06/2024 12:2 2 PM CDT 10/06/2024 12:22 PM CDT Matias Limon MD LAB POCT ORDERABLES - DE VICE Final Result Performing Organization Address [facility] Co de Phone Number [facility] [address] Department [place] [address] * POCT glucose (10/06/2024 7:13 AM CDT) [facility] Signature Glucose, POC 177 70 - 199 mg/dL Comment: For Glucose values <35 mg/dl when Hematocrit is >60 mg/dl,the test may not accurately detect significant hypoglycemia,and testing in the Laboratory should be considered if clinically indicated. POC Performer [id number] [facility] Blood 10/06/2024 7:13 AM CDT 10/06/2024 7:13 AM CDT Matias Limon MD LAB POCT ORDERABLES - DE VICE Final Result Performing Organization Address [facility] Phone Number [facility] [address] Department [place] [address] * XR Chest 1 View - Portable [...] MD LAB BLOOD ORDERABLES Final Res ult [facility] [address] Department [place] [address] * (ABNORMAL) CBC without differential (10/06/2024 1:31 AM CDT) WBC 7.8 3.8 - 9.9 K/cumm Hgb 9.8(L) 13.0 - 17.5 g/dL [facility] Hct 30.8(L) 38.9 - 50.3 % [facility] Plt 191 150 - 400 K/cumm [facility] MPV 9.4 9.1 - 12.3 fL [facility] RBC 3.03(L) 4.30 - 5.80 M/cumm [facility] MCV 101.7(H) 81.3 - 96.4 fL [facility] MCH 32.3 27.1 - 33.3 pg [facility] MCHC 31.8(L) 32.3 - 35.7 g/dL [facility] RDW CV 13.9 11.1 - 14.9 % [facility] RDW SD 51.0(H) 35.7 - 48.1 fL [facility] NRBC abs 0.00 0.00 - 0.01 K/cumm [facility] Blood 10/06/2024 1:31 AM CDT 10/06/2024 2:28 AM CDT us Maxwell Hughes MD LAB BLOOD ORDERABLES Final Res ult Performing Organization Address City/[facility]/ZIP Co de Phone Number [facility] [address] Department [place] [address] * Magnesium (10/06/2024 1:31 AM CDT) Pathologist [facility] Magnesium 1.7 1.4 - 2.5 mg/dL Blood 10/06/2024 1:31 AM CDT 10/06/2024 2:28 AM CDT Maxwell Hughes MD LAB BLOOD ORDERABLES Final Res ult Performing Organization Address [facility]/ZIP Co de Phone Number [facility] [address] [place] [address] * (ABNORMAL) Renal function panel (10/06/2024 1:31 AM CDT) Sodium 134(L) 135 - 145 mmol/L Potassium, pl 3.7 3.3 - 4.9 mmol/L [facility] Chloride 94(L) 97 - 110 mmol/L [facility] CO2 27 22 - 32 mmol/L [facility] Anion gap 13 2 - 15 mmol/L [facility] BUN 18 6 - 25 mg/dL [facility] Creatinine 0.85 0.80 - 1.30 mg/dL [facility] Glucose 157 70 - 199 mg/dL [facility] Comment: Interpretive Data Fasting glucose [...] 2022. Calcium 8.8 8.5 - 10.3 mg/dL [facility] Phosphorus, pl 4.2 2.3 - 4.5 mg/dL [facility] Albumin 3.6 3.5 - 5.0 g/dL [facility] Blood 10/06/2024 1:31 AM CDT 10/06/2024 2:28 AM CDT Maxwell Hughes MD LAB BLOOD ORDERABLES Final Res ult Performing Organization Address City/[facility]/ZIP Co de Phone Number [facility] [address] Department [place] [address] * (ABNORMAL) POCT glucose (10/05/2024 10:14 PM CDT) Glucose, POC 229(H) 70 - 199 mg/dL Comment: For Glucose values <35 mg/dl when Hematocrit is >60 mg/dl,the test may not accurately detect significant hypoglycemia,and testing in the Laboratory should be considered if clinically indicated. POC Performer [id number] [facility] Blood 10/05/2024 10:1 4 PM CDT 10/05/2024 10:14 PM CDT Matias Limon MD LAB POCT ORDERABLES - DE VICE Final Result Performing Organization Address City/[facility]/ZIP Co de Phone Number [facility] [address] [place], [place] [id number] * (ABNORMAL) POCT glucose (10/05/2024 5:09 PM CDT) Glucose, POC 241(H) 70 - 199 mg/dL Comment: For Glucose values <35 mg/dl when Hematocrit is >60 mg/dl,the test may not accurately detect significant hypoglycemia,and testing in the Laboratory should be considered if clinically indicated. POC Performer [id number] [facility] Blood 10/05/2024 5:09 PM CDT 10/05/2024 5:09 PM CDT Matias Limon MD LAB POCT ORDERABLES - DE VICE Final Result Performing Organization Address City/[facility]/ZIP Co de Phone Number [facility] [address] [place], [place] [id number] * XR Chest 1 View (10/05/2024 3:01 [...] be considered if clinically indicated. POC Performer [id number] [facility] Blood 10/05/2024 12:2 2 PM CDT 10/05/2024 12:22 PM CDT us Matias Limon MD LAB POCT ORDERABLES - DE VICE Final Result [facility] [address] Department [place] [address] * POCT glucose (10/05/2024 8:04 AM CDT) Glucose, POC 176 70 - 199 mg/dL Comment: For Glucose values <35 mg/dl when Hematocrit is >60 mg/dl,the test may not accurately detect significant hypoglycemia,and testing in the Laboratory should be considered if clinically indicated. POC Performer [id number] [facility] Blood 10/05/2024 8:04 AM CDT 10/05/2024 8:04 AM CDT us Matias Limon MD LAB POCT ORDERABLES - DE VICE Final Result [facility] [address] Department [place] [address] * XR Chest 1 View - Portable [...] fractures. Electronically signed by: Jewels Burger M.D. us Maxwell Hughes MD IMG XR PROCEDURES Final Result * eGFR (10/05/2024 12:56 AM CDT) Pathologist [facility] eGFR >90 >=60 mL/min/1. 73 m2 Comment: [...] 6 AM CDT 10/05/2024 1:14 AM CDT us Maxwell Hughes MD LAB BLOOD ORDERABLES Final Res ult [facility] [address] Department [place] [address] * (ABNORMAL) CBC without differential (10/05/2024 12:56 AM CDT) Pathologist [facility] WBC 9.3 3.8 - 9.9 K/cumm Hgb 11.0(L) 13.0 - 17.5 g/dL [facility] Hct 33.5(L) 38.9 - 50.3 % [facility] Plt 159 150 - 400 K/cumm [facility] MPV 9.4 9.1 - 12.3 fL [facility] RBC 3.34(L) 4.30 - 5.80 M/cumm [facility] MCV 100.3(H) 81.3 - 96.4 fL [facility] MCH 32.9 27.1 - 33.3 pg [facility] MCHC 32.8 32.3 - 35.7 g/dL [facility] RDW CV 13.9 11.1 - 14.9 % [facility] RDW SD 51.2(H) 35.7 - 48.1 fL [facility] NRBC abs 0.00 0.00 - 0.01 K/cumm [facility] Blood 10/05/2024 12:5 6 AM CDT 10/05/2024 1:14 AM CDT Maxwell Hughes MD LAB BLOOD ORDERABLES Final Res ult Performing Organization Address City/[facility]/ZIP Co de Phone Number [facility] [address] [place] [address] * Type and screen (10/05/2024 12:56 AM CDT) Kin, indirect Negative ABO Rh A Positive [facility] Blood 10/05/2024 12:5 6 AM CDT 10/05/2024 1:03 AM CDT Narrative [facility] - 10/05/2024 1:46 AM CDT Has the patient had Daratumumab or Isatuximab in the past 6 months?->Unknown Maxwell Hughes MD LAB BLOOD BANK TEST ORDERABLES Final Result [facility] [address] Department [place] [address] * Magnesium (10/05/2024 12:56 AM CDT) Magnesium 1.9 1.4 - 2.5 mg/dL Blood 10/05/2024 12:5 6 AM CDT 10/05/2024 1:14 AM CDT Maxwell Hughes MD LAB BLOOD ORDERABLES Final Res ult Performing Organization Address City/[facility]/ZIP Co de Phone Number [facility] [address] [place] [address] * (ABNORMAL) Renal function panel (10/05/2024 12:56 AM CDT) Sodium 135 135 - 145 mmol/L Potassium, pl 3.7 3.3 - 4.9 mmol/L [facility] Chloride 96(L) 97 - 110 mmol/L [facility] CO2 24 22 - 32 mmol/L [facility] Anion gap 15 2 - 15 mmol/L [facility] BUN 12 6 - 25 mg/dL [facility] Creatinine 0.72(L) 0.80 - 1.30 mg/dL [facility] Glucose 188 70 - 199 mg/dL [facility] Comment: Interpretive Data Fasting glucose [...] 2022. Calcium 9.1 8.5 - 10.3 mg/dL [facility] Phosphorus, pl 3.4 2.3 - 4.5 mg/dL [facility] Albumin 3.7 3.5 - 5.0 g/dL [facility] Blood 10/05/2024 12:5 6 AM CDT 10/05/2024 1:14 AM CDT Maxwell Hughes MD LAB BLOOD ORDERABLES Final Res ult [facility] [address] Department [place], [place] [id number] * (ABNORMAL) POCT glucose (10/04/2024 8:58 PM CDT) Glucose, POC 281(H) 70 - 199 mg/dL Comment: For Glucose values <35 mg/dl when Hematocrit is >60 mg/dl,the test may not accurately detect significant hypoglycemia,and testing in the Laboratory should be considered if clinically indicated. POC Performer [phone] [facility] Blood 10/04/2024 8:58 PM CDT 10/04/2024 8:58 PM CDT Matias Limon MD LAB POCT ORDERABLES - DE VICE Final Result Performing Organization Address [facility] Co de Phone Number [facility] [address] [place] [address] * (ABNORMAL) POCT glucose (10/04/2024 8:19 PM CDT) Glucose, POC 317(H) 70 - 199 mg/dL Comment: For Glucose values <35 mg/dl when Hematocrit is >60 mg/dl,the test may not accurately detect significant hypoglycemia,and testing in the Laboratory should be considered if clinically indicated. POC Performer [id number] [facility] Blood 10/04/2024 8:19 PM CDT 10/04/2024 8:19 PM CDT Matias Limon MD LAB POCT ORDERABLES - DE VICE Final Result Performing Organization Address [facility]/ZIP Co de Phone Number [facility] [address] [email or web address] [address] * (ABNORMAL) POCT glucose (10/04/2024 5:20 PM CDT) Glucose, POC 227(H) 70 - 199 mg/dL Comment: For Glucose values <35 mg/dl when Hematocrit is >60 mg/dl,the test may not accurately detect significant hypoglycemia,and testing in the Laboratory should be considered if clinically indicated. POC Performer [id number] [facility] Blood 10/04/2024 5:20 PM CDT 10/04/2024 5:20 PM CDT Matias Limon MD LAB POCT ORDERABLES - DE VICE Final Result Performing Organization Address [facility] Co de Phone Number [facility] [address] [facility] [place] [address] * (ABNORMAL) POCT glucose (10/04/2024 12:34 PM CDT) Glucose, POC 236(H) 70 - 199 mg/dL Comment: For Glucose values <35 mg/dl when Hematocrit is >60 mg/dl,the test may not accurately detect significant hypoglycemia,and testing in the Laboratory should be considered if clinically indicated. POC Performer [phone] [facility] Blood 10/04/2024 12:3 4 PM CDT 10/04/2024 12:34 PM CDT Matias Limon MD LAB POCT ORDERABLES - DE VICE Final Result Performing Organization Address [facility] Phone Number [facility] [address] [facility] [place] [address] * (ABNORMAL) POCT glucose (10/04/2024 8:17 AM CDT) Glucose, POC 212(H) 70 - 199 mg/dL Comment: For Glucose values <35 mg/dl when Hematocrit is >60 mg/dl,the test may not accurately detect significant hypoglycemia,and testing in the Laboratory should be considered if clinically indicated. POC Performer [phone] [facility] Blood 10/04/2024 8:17 AM CDT 10/04/2024 8:17 AM CDT Matias Limon MD LAB POCT ORDERABLES - DE VICE Final Result Performing Organization Address [facility] Co de Phone Number [facility] [address] Department [place] [address] * XR Chest 1 View - Portable [...] pneumothorax. Electronically signed by: Neil Garay M.D. Maxwell Hughes MD IMG XR PROCEDURES [...] MD LAB BLOOD ORDERABLES Final Res ult [facility] [address] Department [place] [address] * (ABNORMAL) CBC without differential (10/04/2024 12:27 AM CDT) WBC 10.1(H) 3.8 - 9.9 K/cumm Hgb 10.2(L) 13.0 - 17.5 g/dL [facility] Hct 32.0(L) 38.9 - 50.3 % [facility] Plt 105(L) 150 - 400 K/cumm [facility] MPV 9.4 9.1 - 12.3 fL [facility] RBC 3.08(L) 4.30 - 5.80 M/cumm [facility] MCV 103.9(H) 81.3 - 96.4 fL [facility] MCH 33.1 27.1 - 33.3 pg [facility] MCHC 31.9(L) 32.3 - 35.7 g/dL [facility] RDW CV 14.3 11.1 - 14.9 % [facility] RDW SD 54.4(H) 35.7 - 48.1 fL [facility] NRBC abs 0.00 0.00 - 0.01 K/cumm [facility] Blood 10/04/2024 12:2 7 AM CDT 10/04/2024 1:17 AM CDT Maxwell Hughes MD LAB BLOOD ORDERABLES Final Res ult Performing Organization Address City/[facility]/ZIP Co de Phone Number [facility] [address] Department [place] [address] * Magnesium (10/04/2024 12:27 AM CDT) Pathologist [facility] Magnesium 1.8 1.4 - 2.5 mg/dL Blood 10/04/2024 12:2 7 AM CDT 10/04/2024 1:17 AM CDT Maxwell Hughes MD LAB BLOOD ORDERABLES Final Res ult Performing Organization Address [facility] Co de Phone Number [facility] [address] [place] [address] * (ABNORMAL) Renal function panel (10/04/2024 12:27 AM CDT) Pathologist [facility] Sodium 131(L) 135 - 145 mmol/L Potassium, pl 4.4 3.3 - 4.9 mmol/L [facility] Chloride 97 97 - 110 mmol/L [facility] CO2 22 22 - 32 mmol/L [facility] Anion gap 12 2 - 15 mmol/L [facility] BUN 11 6 - 25 mg/dL [facility] Creatinine 0.75(L) 0.80 - 1.30 mg/dL [facility] Glucose 214(H) 70 - 199 mg/dL [facility] Comment: Interpretive Data Fasting glucose [...] 2022. Calcium 8.4(L) 8.5 - 10.3 mg/dL [facility] Phosphorus, pl 2.6 2.3 - 4.5 mg/dL [facility] Albumin 3.4(L) 3.5 - 5.0 g/dL [facility] Blood 10/04/2024 12:2 7 AM CDT 10/04/2024 1:17 AM CDT us Maxwell Hughes MD LAB BLOOD ORDERABLES Final Res ult Performing Organization Address [facility]/ZIP Co de Phone Number [facility] [address] Department of Laboratories [place], [place] [id number] * (ABNORMAL) POCT glucose (10/03/2024 8:44 PM CDT) [facility] Signature Glucose, POC 233(H) 70 - 199 mg/dL Comment: For Glucose values <35 mg/dl when Hematocrit is >60 mg/dl,the test may not accurately detect significant hypoglycemia,and testing in the Laboratory should be considered if clinically indicated. POC Performer [phone] [facility] Blood 10/03/2024 8:44 PM CDT 10/03/2024 8:44 PM CDT us Matias Limon MD LAB POCT ORDERABLES - DE VICE Final Result Performing Organization Address [facility] Co de Phone Number [facility] [address] Department [place] [address] * XR Chest 1 View (10/03/2024 6:35 [...] fractures. Electronically signed by: Cassandra Villeda M.D. us Kike RAMOS IMG XR PROCEDURES Final Resu lt * (ABNORMAL) POCT glucose (10/03/2024 5:27 PM CDT) Glucose, POC 218(H) 70 - 199 mg/dL Comment: For Glucose values <35 mg/dl when Hematocrit is >60 mg/dl,the test may not accurately detect significant hypoglycemia,and testing in the Laboratory should be considered if clinically indicated. POC Performer [phone] ADRIANA [facility] Blood 10/03/2024 5:27 PM CDT 10/03/2024 5:27 PM CDT us Matias Limon MD LAB POCT ORDERABLES - DE VICE Final Result [facility] [address] [facility] [place] [address] * (ABNORMAL) POCT glucose (10/03/2024 12:21 PM CDT) Glucose, POC 202(H) 70 - 199 mg/dL Comment: For Glucose values <35 mg/dl when Hematocrit is >60 mg/dl,the test may not accurately detect significant hypoglycemia,and testing in the Laboratory should be considered if clinically indicated. POC Performer [id number] [facility] Blood 10/03/2024 12:2 1 PM CDT 10/03/2024 12:21 PM CDT us Matias Limon MD LAB POCT ORDERABLES - DE VICE Final Result Performing Organization Address [facility] Co de Phone Number [facility] [address] [facility] [place] [address] * POCT glucose (10/03/2024 7:56 AM CDT) Glucose, POC 125 70 - 199 mg/dL Comment: For Glucose values <35 mg/dl when Hematocrit is >60 mg/dl,the test may not accurately detect significant hypoglycemia,and testing in the Laboratory should be considered if clinically indicated. POC Performer [id number] [facility] Blood 10/03/2024 7:56 AM CDT 10/03/2024 7:56 AM CDT us Matias Limon MD LAB POCT ORDERABLES - DE VICE Final Result Performing Organization Address [facility] Co de Phone Number [facility] [address] [facility] [place] [address] * XR Chest 1 View - Portable [...] heart which are likely pericardial drains. The [place] catheter has been removed. The tip of [...] heart which are likely pericardial drains. The [place] catheter has been removed. The tip of the right internal jugular central venous catheter projects over the superior vena cava. Venous sternotomy wires are stable. Electronically signed by: Yuan Cook M.D. Maxwell Hughes MD IMG XR PROCEDURES Final Result * POCT glucose (10/03/2024 4:56 AM CDT) [facility] Signature Glucose, POC 112 70 - 199 mg/dL Comment: For Glucose values <35 mg/dl when Hematocrit is >60 mg/dl,the test may not accurately detect significant hypoglycemia,and testing in the Laboratory should be considered if clinically indicated. POC Performer [phone] [facility] Blood 10/03/2024 4:56 AM CDT 10/03/2024 4:56 AM CDT Matias Limon MD LAB POCT ORDERABLES - DE VICE Final Result Performing Organization Address [facility] Co md Phone Number [facility] [address] [facility] [place] [address] * POCT glucose (10/03/2024 3:18 AM CDT) Glucose, POC 84 70 - 199 mg/dL Comment: For Glucose values <35 mg/dl when Hematocrit is >60 mg/dl,the test may not accurately detect significant hypoglycemia,and testing in the Laboratory should be considered if clinically indicated. POC Performer [phone] [facility] Blood 10/03/2024 3:18 AM CDT 10/03/2024 3:18 AM CDT Matias Limon MD LAB POCT ORDERABLES - DE VICE Final Result Performing Organization Address [facility] Phone Number [facility] [address] [facility] [place] [address] * POCT glucose (10/03/2024 2:15 AM CDT) Glucose, POC 112 70 - 199 mg/dL Comment: For Glucose values <35 mg/dl when Hematocrit is >60 mg/dl,the test may not accurately detect significant hypoglycemia,and testing in the Laboratory should be considered if clinically indicated. POC Performer [phone] [facility] Blood 10/03/2024 2:15 AM CDT 10/03/2024 2:15 AM CDT Matias Limon MD LAB POCT ORDERABLES - DE VICE Final Result Performing Organization Address [facility] Co md Phone Number [facility] [address] [facility] [place] [address] * eGFR (10/02/2024 11:38 PM CDT) eGFR [...] ORDERABLES Final Res ult Performing Organization Address City/[facility]/ZIP Co de Phone Number [facility] [address] [place], [place] [id number] * Calcium, ionized (10/02/2024 11:38 PM CDT) Pathologist [facility] Calcium, Ionized 4.73 4.50 - 5.10 mg/dL Blood 10/02/2024 11:3 8 PM CDT 10/02/2024 11:45 PM CDT Maxwell Hughes MD LAB BLOOD ORDERABLES Final Res ult [facility] [address] Department [place] [address] * (ABNORMAL) CBC without differential (10/02/2024 11:38 PM CDT) Pathologist [facility] WBC 10.6(H) 3.8 - 9.9 K/cumm Hgb 10.5(L) 13.0 - 17.5 g/dL [facility] Hct 33.1(L) 38.9 - 50.3 % [facility] Plt 86(L) 150 - 400 K/cumm [facility] MPV 9.3 9.1 - 12.3 fL [facility] RBC 3.20(L) 4.30 - 5.80 M/cumm [facility] MCV 103.4(H) 81.3 - 96.4 fL [facility] MCH 32.8 27.1 - 33.3 pg [facility] MCHC 31.7(L) 32.3 - 35.7 g/dL [facility] RDW CV 14.3 11.1 - 14.9 % [facility] RDW SD 54.0(H) 35.7 - 48.1 fL [facility] NRBC abs 0.00 0.00 - 0.01 K/cumm [facility] Blood 10/02/2024 11:3 8 PM CDT 10/02/2024 11:47 PM CDT Maxwell Hughes MD LAB BLOOD ORDERABLES Final Res ult Performing Organization Address [facility] Co de Phone Number [place] [phone] [place] [address] * Magnesium (10/02/2024 11:38 PM CDT) [facility] Magnesium 1.9 1.4 - 2.5 mg/dL Blood 10/02/2024 11:3 8 PM CDT 10/02/2024 11:47 PM CDT Maxwell Hughes MD LAB BLOOD ORDERABLES Final Res ult Performing Organization Address City/[facility] Co de Phone Number [place] [address] Department [place] [address] * Renal function panel (10/02/2024 11:38 PM CDT) [facility] Sodium 137 135 - 145 mmol/L Potassium, pl 4.2 3.3 - 4.9 mmol/L [facility] Chloride 102 97 - 110 mmol/L [facility] CO2 22 22 - 32 mmol/L [facility] Anion gap 13 2 - 15 mmol/L [facility] BUN 14 6 - 25 mg/dL [facility] Creatinine 0.83 0.80 - 1.30 mg/dL [facility] Glucose 172 70 - 199 mg/dL [facility] Comment: Interpretive Data Fasting glucose [...] 2022. Calcium 8.5 8.5 - 10.3 mg/dL [facility] Phosphorus, pl 2.8 2.3 - 4.5 mg/dL [facility] Albumin 3.9 3.5 - 5.0 g/dL [facility] Blood 10/02/2024 11:3 8 PM CDT 10/02/2024 11:47 PM CDT us Maxwell Hughes MD LAB BLOOD ORDERABLES Final Res ult [facility] [address] Department [place] [address] * POCT glucose (10/02/2024 11:35 PM CDT) [facility] Glucose, POC 172 70 - 199 mg/dL Comment: For Glucose values <35 mg/dl when Hematocrit is >60 mg/dl,the test may not accurately detect significant hypoglycemia,and testing in the Laboratory should be considered if clinically indicated. POC Performer [phone] [facility] Blood 10/02/2024 11:3 5 PM CDT 10/02/2024 11:35 PM CDT us Matias Limon MD LAB POCT ORDERABLES - DE VICE Final Result Performing Organization Address [facility] Co de Phone Number [facility] [address] [facility] [place] [address] * (ABNORMAL) POCT glucose (10/02/2024 10:12 PM CDT) Glucose, POC 215(H) 70 - 199 mg/dL Comment: For Glucose values <35 mg/dl when Hematocrit is >60 mg/dl,the test may not accurately detect significant hypoglycemia,and testing in the Laboratory should be considered if clinically indicated. POC Performer [phone] [facility] Blood 10/02/2024 10:1 2 PM CDT 10/02/2024 10:12 PM CDT us Matias Limon MD LAB POCT ORDERABLES - DE VICE Final Result Performing Organization Address [facility] Phone Number [facility] [address] [facility] [place] [address] * (ABNORMAL) POCT glucose (10/02/2024 8:46 PM CDT) Glucose, POC 221(H) 70 - 199 mg/dL Comment: For Glucose values <35 mg/dl when Hematocrit is >60 mg/dl,the test may not accurately detect significant hypoglycemia,and testing in the Laboratory should be considered if clinically indicated. POC Performer [id number] [facility] Blood 10/02/2024 8:46 PM CDT 10/02/2024 8:46 PM CDT Matias Limon MD LAB POCT ORDERABLES - DE VICE Final Result Performing Organization Address [facility] Co de Phone Number [facility] [address] Department [place] [address] * Critical Care (10/02/2024 7:44 PM CDT) Narrative Kenrick Gutierrez MD - 10/02/2024 7:44 PM CDT Kenrick Gutierrez MD 10/03/2024 9:55 AM Critical Care Performed by: Robyn Trotter NP Authorized by: Robyn Trotter NP CRITICAL CARE: Team: [facility] CT Shift: PM Level of Billing: Subsequent [...] plan with the patient's team and other medical/bus info consultant staff. This time was in addition to and separate from care provided by other practitioners on this day of service. us Robyn Trotter [employer]ILD[employer]AN[employer] SUPERVISOR IN CLINIC/BEDSIDE AN[employer]OL ENGLISH Final Result * POCT glucose (10/02/2024 5:07 PM CDT) Glucose, POC 128 70 - 199 mg/dL Comment: For Glucose values <35 mg/dl when Hematocrit is >60 mg/dl,the test may not accurately detect significant hypoglycemia,and testing in the Laboratory should be considered if clinically indicated. POC Performer [phone] [facility] Blood 10/02/2024 5:07 PM CDT 10/02/2024 5:07 PM CDT us Matias Limon MD LAB POCT ORDERABLES - DE VICE Final Result [facility] [address] Department [place] [address] * POCT glucose (10/02/2024 4:02 PM CDT) Glucose, POC 119 70 - 199 mg/dL Comment: For Glucose values <35 mg/dl when Hematocrit is >60 mg/dl,the test may not accurately detect significant hypoglycemia,and testing in the Laboratory should be considered if clinically indicated. POC Performer [id number] [facility] Blood 10/02/2024 4:02 PM CDT 10/02/2024 4:02 PM CDT Maitas Limon MD LAB POCT ORDERABLES - DE VICE Final Result Performing Organization Address [facility] Co de Phone Number [facility] [address] [facility] [place] [address] * POCT glucose (10/02/2024 2:08 PM CDT) [facility] Signature Glucose, POC 199 70 - 199 mg/dL Comment: For Glucose values <35 mg/dl when Hematocrit is >60 mg/dl,the test may not accurately detect significant hypoglycemia,and testing in the Laboratory should be considered if clinically indicated. POC Performer [phone] [facility] Blood 10/02/2024 2:08 PM CDT 10/02/2024 2:08 PM CDT Matias Limon MD LAB POCT ORDERABLES - DE VICE Final Result Performing Organization Address [facility] Co md Phone Number [facility] [address] [facility] [place] [address] * Critical Care (10/02/2024 1:30 PM CDT) Narrative Compa Ruffin MD - 10/02/2024 1:30 PM CDT Compa Ruffin MD 10/19/2024 4:48 PM Critical Care Performed by: Compa Ruffin MD Authorized by: Compa Ruffin MD CRITICAL CARE: Team: [facility] CT Shift: AM Level of Billing: Critical [...] plan with the ICU team and other medical/bus info consultant staff, making frequent assessments and decisions [...] * POCT glucose (10/02/2024 12:05 PM CDT) [facility] Glucose, POC 78 70 - 199 mg/dL Comment: For Glucose values <35 mg/dl when Hematocrit is >60 mg/dl,the test may not accurately detect significant hypoglycemia,and testing in the Laboratory should be considered if clinically indicated. POC Performer [id number] ADRIANA [facility] Blood 10/02/2024 12:0 5 PM CDT 10/02/2024 12:05 PM CDT us Matias Limon MD LAB POCT ORDERABLES - DE VICE Final Result [facility] [address] Department [place] [address] * POCT glucose (10/02/2024 10:11 AM CDT) Pathologist [facility] Glucose, POC 133 70 - 199 mg/dL Comment: For Glucose values <35 mg/dl when Hematocrit is >60 mg/dl,the test may not accurately detect significant hypoglycemia,and testing in the Laboratory should be considered if clinically indicated. Blood 10/02/2024 10:1 1 AM CDT 10/02/2024 10:11 AM CDT Matias Limon MD LAB POCT ORDERABLES - DE VICE Final Result Performing Organization Address [facility] Co de Phone Number [facility] [address] [facility] [place], [place] [id number] * Oxyhemoglobin, central venous (10/02/2024 9:10 AM CDT) [facility] Oxyhemoglobin, CV 70.4 % Comment: Interpretive Data No reference range established. Current interpretive data was last revised 2019. Blood 10/02/2024 9:10 AM CDT 10/02/2024 9:36 AM CDT Maxwell Hughes MD LAB BLOOD ORDERABLES Final Res ult Performing Organization Address [facility] Co de Phone Number [facility] [address] [facility] [place] [address] * Oxyhemoglobin, pulmonary artery (10/02/2024 9:07 AM CDT) Pathologist [facility] Oxyhemoglobin, PA 73.8 % Comment: Interpretive Data No reference range established. Current interpretive data was last revised 2019. Blood 10/02/2024 9:07 AM CDT 10/02/2024 9:12 AM CDT Maxwell Hughes MD LAB BLOOD ORDERABLES Final Res ult Performing Organization Address City/[facility] Co de Phone Number [facility] [address] [facility] [place] [address] * POCT glucose (10/02/2024 8:13 AM CDT) Glucose, POC 157 70 - 199 mg/dL Comment: For Glucose values <35 mg/dl when Hematocrit is >60 mg/dl,the test may not accurately detect significant hypoglycemia,and testing in the Laboratory should be considered if clinically indicated. Blood 10/02/2024 8:13 AM CDT 10/02/2024 8:13 AM CDT Matias Limon MD LAB POCT ORDERABLES - DE VICE Final Result Performing Organization Address [facility] Co de Phone Number ADRIANA [facility] [address] Department [place] [address] * POCT glucose (10/02/2024 7:10 AM CDT) [...] DE VICE Final Result Performing Organization Address [facility] Co de Phone Number ADRINAA [facility] [address] Department [place] [address] * XR Chest 1 View - Portable [...] 6:14 AM CDT 10/02/2024 6:18 AM CDT us Robyn Trotter NP LAB BLOOD ORDERABLES F inal Result [facility] [address] Department [place] [address] * POCT glucose (10/02/2024 6:08 AM CDT) Pathologist [facility] Glucose, POC 159 70 - 199 mg/dL Comment: For Glucose values <35 mg/dl when Hematocrit is >60 mg/dl,the test may not accurately detect significant hypoglycemia,and testing in the Laboratory should be considered if clinically indicated. Blood 10/02/2024 6:08 AM CDT 10/02/2024 6:08 AM CDT Matias Limon MD LAB POCT ORDERABLES - DE VICE Final Result Performing Organization Address [facility] de Phone Number ADRIANA [facility] [address] [facility] [place] [address] * POCT glucose (10/02/2024 4:07 AM CDT) [...] DE VICE Final Result Performing Organization Address [facility] de Phone Number [facility] [address] [facility] [place] [address] * POCT glucose (10/02/2024 3:01 AM CDT) [...] DE VICE Final Result Performing Organization Address [facility] Co de Phone Number [facility] [address] [facility] [place] [address] * POCT glucose (10/02/2024 2:08 AM CDT) Glucose, POC 110 70 - 199 mg/dL Comment: For Glucose values <35 mg/dl when Hematocrit is >60 mg/dl,the test may not accurately detect significant hypoglycemia,and testing in the Laboratory should be considered if clinically indicated. Blood 10/02/2024 2:08 AM CDT 10/02/2024 2:08 AM CDT Matias Limon MD LAB POCT ORDERABLES - DE VICE Final Result [facility] [address] [facility] [place] [address] * POCT glucose (10/02/2024 1:15 AM CDT) [...] DE VICE Final Result Performing Organization Address City/[facility]/ZIP Co de Phone Number IR[facility]HEL[facility] [address] [facility] [place] [address] * eGFR (10/02/2024 12:18 AM CDT) Pathologist [facility] eGFR >90 >=60 mL/min/1. 73 m2 Comment: [...] ORDERABLES Final Res ult Performing Organization Address City/[facility]/ZIP Co de Phone Number [facility] [address] Department [employer] [place], [place] [id number] * Calcium, ionized (10/02/2024 12:18 AM CDT) Calcium, Ionized 4.52 4.50 - 5.10 mg/dL Blood 10/02/2024 12:1 8 AM CDT 10/02/2024 12:24 AM CDT Maxwell Hughes MD LAB BLOOD ORDERABLES Final Res ult Performing Organization Address City/[facility]/ZIP Co de Phone Number [facility] [address] [place] [address] * (ABNORMAL) CBC without differential (10/02/2024 12:18 AM CDT) WBC 18.0(H) 3.8 - 9.9 K/cumm Hgb 12.4(L) 13.0 - 17.5 g/dL [facility] Hct 39.2 38.9 - 50.3 % [facility] Plt 110(L) 150 - 400 K/cumm [facility] MPV 9.4 9.1 - 12.3 fL [facility] RBC 3.86(L) 4.30 - 5.80 M/cumm [facility] MCV 101.6(H) 81.3 - 96.4 fL [facility] MCH 32.1 27.1 - 33.3 pg [facility] MCHC 31.6(L) 32.3 - 35.7 g/dL [facility] RDW CV 13.8 11.1 - 14.9 % [facility] RDW SD 51.6(H) 35.7 - 48.1 fL [facility] NRBC abs 0.00 0.00 - 0.01 K/cumm [facility] Blood 10/02/2024 12:1 8 AM CDT 10/02/2024 12:27 AM CDT Maxwell Hughes MD LAB BLOOD ORDERABLES Final Res ult Performing Organization Address [facility]/ZIP Co de Phone Number [facility] [address] [place] [address] * Magnesium (10/02/2024 12:18 AM CDT) Pathologist [facility] Magnesium 2.0 1.4 - 2.5 mg/dL Blood 10/02/2024 12:1 8 AM CDT 10/02/2024 12:27 AM CDT Maxwell Hughes MD LAB BLOOD ORDERABLES Final Res ult Performing Organization Address [facility] Co de Phone Number [facility] [address] [email or web address] [address] * (ABNORMAL) Blood gas, arterial (10/02/2024 12:18 AM CDT) pH, Art 7.38 7.35 - 7.45 PCO2, Arterial 40 35 - 45 mmHg [facility] PO2, Arterial 132(H) 83 - 108 mmHg [facility] HCO3 Art (Calculated) 24 20 - 30 mmol/L [facility] BE, art -1 mmol/L [facility] Comment: Interpretive Data No Reference Range Established Current Interpretive Data was last revised on 2017 O2 Sat Art (Calculated) 99(H) 94 - 98 % [facility] Blood 10/02/2024 12:1 8 AM CDT 10/02/2024 12:24 AM CDT Robyn Trotter NP LAB BLOOD ORDERABLES F inal Result [facility] [address] Department [place] [address] * (ABNORMAL) Renal function panel (10/02/2024 12:18 AM CDT) Sodium 140 135 - 145 mmol/L Potassium, pl 4.4 3.3 - 4.9 mmol/L [facility] Chloride 108 97 - 110 mmol/L [facility] CO2 19(L) 22 - 32 mmol/L [facility] Anion gap 13 2 - 15 mmol/L [facility] BUN 12 6 - 25 mg/dL [facility] Creatinine 0.71(L) 0.80 - 1.30 mg/dL [facility] Glucose 143 70 - 199 mg/dL [facility] Comment: Interpretive Data Fasting glucose [...] 2022. Calcium 8.3(L) 8.5 - 10.3 mg/dL [facility] Phosphorus, pl 3.8 2.3 - 4.5 mg/dL [facility] Albumin 3.8 3.5 - 5.0 g/dL [facility] Blood 10/02/2024 12:1 8 AM CDT 10/02/2024 12:27 AM CDT Maxwell Hughes MD LAB BLOOD ORDERABLES Final Res ult Performing Organization Address [facility]/ZIP Co de Phone Number [facility] [address] [facility] [place] [address] * POCT glucose (10/02/2024 12:15 AM CDT) Glucose, POC 160 70 - 199 mg/dL Comment: For Glucose values <35 mg/dl when Hematocrit is >60 mg/dl,the test may not accurately detect significant hypoglycemia,and testing in the Laboratory should be considered if clinically indicated. Blood 10/02/2024 12:1 5 AM CDT 10/02/2024 12:15 AM CDT us Matias Limon MD LAB POCT ORDERABLES - DE VICE Final Result Performing Organization Address [facility] Co de Phone Number [facility] [address] [facility] [place] [address] * POCT glucose (10/01/2024 11:18 PM CDT) [...] DE VICE Final Result Performing Organization Address City/[facility]/ZIP Co de Phone Number [facility] [address] [facility] [place] [address] * POCT glucose (10/01/2024 10:21 PM CDT) [...] DE VICE Final Result Performing Organization Address [facility] Co de Phone Number [facility] [address] [place] [address] * POCT glucose (10/01/2024 9:09 PM CDT) [facility] Glucose, POC 166 70 - 199 mg/dL Comment: For Glucose values <35 mg/dl when Hematocrit is >60 mg/dl,the test may not accurately detect significant hypoglycemia,and testing in the Laboratory should be considered if clinically indicated. Blood 10/01/2024 9:09 PM CDT 10/01/2024 9:09 PM CDT Matias Limon MD LAB POCT ORDERABLES - DE VICE Final Result Performing Organization Address [facility] Co de Phone Number [facility] [address] [place] [address] * Critical Care (10/01/2024 8:58 PM CDT) Narrative Compa Ruffin MD - 10/01/2024 8:58 PM CDT Compa Ruffin MD 10/11/2024 12:45 PM Critical Care Performed by: Robyn Trotter NP Authorized by: Robyn Trotter NP CRITICAL CARE: Team: [facility] CT Shift: PM Level of Billing: Critical [...] plan with the ICU team and other medical/bus info consultant staff, making frequent assessments and decisions [...] documenting in the medical record Robyn Trotter NP IN CLINIC/BEDSIDE ANMOL ENGLISH Final Result * Oxyhemoglobin, pulmonary artery (10/01/2024 8:58 PM CDT) Pathologist [facility] Oxyhemoglobin, PA 79.2 % Comment: Interpretive Data No reference range established. Current interpretive data was last revised 2019. Blood 10/01/2024 8:58 PM CDT 10/01/2024 9:03 PM CDT Robyn Trotter NP LAB BLOOD ORDERABLES F inal Result Performing Organization Address [facility]/ZIP Co de Phone Number [facility] [address] Department [place] [address] * POCT glucose (10/01/2024 8:03 PM CDT) [...] DE VICE Final Result Performing Organization Address [facility]/ZIP Co de Phone Number [facility] [address] Department [place] [address] * (ABNORMAL) Lactate (10/01/2024 6:42 PM CDT) [facility] Lactate 2.2(H) 0.7 - 2.0 mmol/L Blood 10/01/2024 6:42 PM CDT 10/01/2024 6:46 PM CDT Robyn Trotter NP LAB BLOOD ORDERABLES F inal Result Performing Organization Address [facility]/ZIP Co de Phone Number [facility] [address] [place] [address] * (ABNORMAL) Blood gas, arterial (10/01/2024 6:26 PM CDT) [facility] pH, Art 7.28(L) 7.35 - 7.45 PCO2, Arterial 39 35 - 45 mmHg [facility] PO2, Arterial 109(H) 83 - 108 mmHg [facility] HCO3 Art (Calculated) 18(L) 20 - 30 mmol/L [facility] BE, art -8 mmol/L [facility] Comment: Interpretive Data No Reference Range Established Current Interpretive Data was last revised on 2017 O2 Sat Art (Calculated) 98 94 - 98 % [facility] Blood 10/01/2024 6:26 PM CDT 10/01/2024 6:29 PM CDT Maxwell Hughes MD LAB BLOOD ORDERABLES Final Res ult [facility] [address] [place] [address] * POCT glucose (10/01/2024 5:59 PM CDT) Pathologist [facility] Glucose, POC 120 70 - 199 mg/dL Comment: For Glucose values <35 mg/dl when Hematocrit is >60 mg/dl,the test may not accurately detect significant hypoglycemia,and testing in the Laboratory should be considered if clinically indicated. Blood 10/01/2024 5:59 PM CDT 10/01/2024 5:59 PM CDT Matias Limon MD LAB POCT ORDERABLES - DE VICE Final Result Performing Organization Address [facility] Co de Phone Number [facility] [address] [facility] [place], [place] [id number] * POCT glucose (10/01/2024 4:42 PM CDT) [facility] Glucose, POC 125 70 - 199 mg/dL Comment: For Glucose values <35 mg/dl when Hematocrit is >60 mg/dl,the test may not accurately detect significant hypoglycemia,and testing in the Laboratory should be considered if clinically indicated. Blood 10/01/2024 4:42 PM CDT 10/01/2024 4:42 PM CDT Matias Limon MD LAB POCT ORDERABLES - DE VICE Final Result Performing Organization Address [facility] Co de Phone Number [facility] [address] [facility] [place], [place] [id number] * POCT Activated clotting time, low range (10/01/2024 4:40 PM CDT) [facility] ACT 131 123 - 168 sec Blood 10/01/2024 4:40 PM CDT 10/01/2024 4:40 PM CDT Matias Limon MD LAB POCT ORDERABLES - DE VICE Final Result Performing Organization Address [facility] Co de Phone Number [facility] [address] [facility] [employer], [place] [id number] * XR Chest 1 View - Portable [...] the superior vena cava. Right internal jugular [place] catheter tip overlies the main pulmonary artery. [...] the superior vena cava. Right internal jugular [place] catheter tip overlies the main pulmonary artery. [...] state. Electronically signed by: Compa Johnson M.D. Maxwell Hughes MD IMG XR PROCEDURES [...] DE VICE Final Result Performing Organization Address [facility] Co de Phone Number [facility] [address] Department [place], [place] [id number] * eGFR (10/01/2024 3:45 PM CDT) Pathologist [facility] eGFR >90 >=60 mL/min/1. 73 m2 Comment: [...] of Race in Diagnosing Kidney Disease, JASN 202). The CKD-EPI equation should not be used for patients with unstable renal function and has not been validated in children and those over 70. Current interpretive data was last reviewed 2021. Blood 10/01/2024 3:45 PM CDT 10/01/2024 3:53 PM CDT us Maxwell Hughes MD LAB BLOOD ORDERABLES Final Res ult Performing Organization Address [facility]/ZIP Co de Phone Number [facility] [address] Department of [place], [place] [id number] * (ABNORMAL) Calcium, ionized (10/01/2024 3:45 PM CDT) Calcium, Ionized 4.13(L) 4.50 - 5.10 mg/dL Blood 10/01/2024 3:45 PM CDT 10/01/2024 3:51 PM CDT Maxwell Hughes MD LAB BLOOD ORDERABLES Final Res ult Performing Organization Address [facility] Co de Phone Number [facility] [address] [facility] [place] [address] * (ABNORMAL) aPTT (10/01/2024 3:45 PM CDT) [...] ORDERABLES Final Res ult Performing Organization Address [facility] de Phone Number [facility] [address] [facility] [place] [address] * Protime-INR (10/01/2024 3:45 PM CDT) PT 12.8 9.7 - 13.0 sec INR 1.18 0.90 - 1.20 [facility] Comment: Interpretive data Oral anticoagulant [...] ORDERABLES Final Res ult Performing Organization Address [facility] Co de Phone Number [facility] [address] [email or web address] [place] [address] * (ABNORMAL) CBC without differential (10/01/2024 3:45 PM CDT) WBC 14.3(H) 3.8 - 9.9 K/cumm Hgb 12.7(L) 13.0 - 17.5 g/dL [facility] Hct 38.9 38.9 - 50.3 % [facility] Plt 83(L) 150 - 400 K/cumm [facility] MPV 8.9(L) 9.1 - 12.3 fL [facility] RBC 3.84(L) 4.30 - 5.80 M/cumm [facility] MCV 101.3(H) 81.3 - 96.4 fL [facility] MCH 33.1 27.1 - 33.3 pg [facility] MCHC 32.6 32.3 - 35.7 g/dL [facility] RDW CV 13.7 11.1 - 14.9 % [facility] RDW SD 50.4(H) 35.7 - 48.1 fL [facility] NRBC abs 0.00 0.00 - 0.01 K/cumm [facility] Blood 10/01/2024 3:45 PM CDT 10/01/2024 3:53 PM CDT Maxwell Hughes MD LAB BLOOD ORDERABLES Final Res ult [facility] [address] [place] [address] * Phosphorus (10/01/2024 3:45 PM CDT) Phosphorus, pl 3.2 2.3 - 4.5 mg/dL Blood 10/01/2024 3:45 PM CDT 10/01/2024 3:53 PM CDT Maxwell Hughes MD LAB BLOOD ORDERABLES Final Res ult Performing Organization Address [facility] Co de Phone Number [facility] [address] [facility] [place] [address] * Magnesium (10/01/2024 3:45 PM CDT) [facility] Magnesium 2.2 1.4 - 2.5 mg/dL Blood 10/01/2024 3:45 PM CDT 10/01/2024 3:53 PM CDT Maxwell Hughes MD LAB BLOOD ORDERABLES Final Res ult Performing Organization Address [facility] de Phone Number [facility] [address] [facility] [place] [address] * (ABNORMAL) Blood gas, arterial (10/01/2024 3:45 PM CDT) Pathologist [facility] pH, Art 7.31(L) 7.35 - 7.45 PCO2, Arterial 48(H) 35 - 45 mmHg [facility] PO2, Arterial 129(H) 83 - 108 mmHg [facility] HCO3 Art (Calculated) 24 20 - 30 mmol/L [facility] BE, art -2 mmol/L [facility] Comment: Interpretive Data No Reference Range Established Current Interpretive Data was last revised on 2017 O2 Sat Art (Calculated) 99(H) 94 - 98 % [facility] Blood 10/01/2024 3:45 PM CDT 10/01/2024 3:51 PM CDT Maxwell Hughes MD LAB BLOOD ORDERABLES Final Res ult Performing Organization Address [facility] Co de Phone Number [facility] [address] [facility] [place] [address] * (ABNORMAL) Basic metabolic panel (10/01/2024 3:45 PM CDT) Sodium 140 135 - 145 mmol/L Potassium, pl 4.7 3.3 - 4.9 mmol/L [facility] Chloride 109 97 - 110 mmol/L [facility] CO2 20(L) 22 - 32 mmol/L [facility] Anion gap 11 2 - 15 mmol/L [facility] BUN 15 6 - 25 mg/dL [facility] Creatinine 0.86 0.80 - 1.30 mg/dL [facility] Glucose 138 70 - 199 mg/dL [facility] Comment: Interpretive Data Fasting glucose [...] 2022. Calcium 7.5(L) 8.5 - 10.3 mg/dL [facility] Blood 10/01/2024 3:45 PM CDT 10/01/2024 3:53 PM CDT us Maxwell Hughes MD LAB BLOOD ORDERABLES Final Res ult [facility] [address] Department [place] [address] * Critical Care (10/01/2024 3:30 PM CDT) Narrative Compa Ruffin MD - 10/01/2024 3:30 PM CDT Compa Ruffin MD 10/19/2024 4:44 PM Critical Care Performed by: Compa Ruffin MD Authorized by: Compa Ruffin MD CRITICAL CARE: Team: [facility] CT Shift: AM Level of Billing: Critical [...] plan with the ICU team and other medical/bus info consultant staff, making frequent assessments and decisions [...] Chemistries, Arterial - (10/01/2024 3:01 PM CDT) [facility] Signature Glucose, POC 139 70 - 199 mg/dL Blood 10/01/2024 3:01 PM CDT 10/01/2024 3:01 PM CDT us Dipti Dalal MD LAB POCT ORDERABLES - DEVICE Fin al Result [facility] [address] Department [place] [address] * (ABNORMAL) aPTT (10/01/2024 2:33 PM CDT) [...] ORDERABLES Fin al Result Performing Organization Address [facility] Co de Phone Number [facility] [address] [place] [address] * (ABNORMAL) Protime-INR (10/01/2024 2:33 PM CDT) Pathologist [facility] PT 13.6(H) 9.7 - 13.0 sec INR 1.25(H) 0.90 - 1.20 [facility] Comment: Interpretive data Oral anticoagulant [...] ORDERABLES Fin al Result Performing Organization Address City/[facility] Co de Phone Number [facility] [address] [place], [place] [phone] * Fibrinogen (10/01/2024 2:33 PM CDT) Fibrinogen 244 170 - 400 mg/dL Blood 10/01/2024 2:33 PM CDT 10/01/2024 2:33 PM CDT Matias Limon MD LAB BLOOD ORDERABLES Fin al Result Performing Organization Address [facility] Co de Phone Number [facility] [address] [email or web address] [place] [address] * (ABNORMAL) CBC without differential (10/01/2024 2:33 PM CDT) Pathologist [facility] WBC 18.4(H) 3.8 - 9.9 K/cumm Hgb 12.7(L) 13.0 - 17.5 g/dL [facility] Hct 39.6 38.9 - 50.3 % [facility] Plt 121(L) 150 - 400 K/cumm [facility] MPV 8.9(L) 9.1 - 12.3 fL [facility] RBC 3.89(L) 4.30 - 5.80 M/cumm [facility] MCV 101.8(H) 81.3 - 96.4 fL [facility] MCH 32.6 27.1 - 33.3 pg [facility] MCHC 32.1(L) 32.3 - 35.7 g/dL [facility] RDW CV 13.6 11.1 - 14.9 % [facility] RDW SD 51.6(H) 35.7 - 48.1 fL [facility] NRBC abs 0.00 0.00 - 0.01 K/cumm [facility] Blood 10/01/2024 2:33 PM CDT 10/01/2024 2:33 PM CDT Matias Limon MD LAB BLOOD ORDERABLES Fin al Result [facility] [address] [place] [address] * (ABNORMAL) POC Blood Gas and Chemistries, Arterial - (10/01/2024 2:22 PM CDT) Pathologist [facility] pH, Art POC 7.27(L) 7.35 - 7.45 pCO2, Art POC 51(H) 35 - 45 mmHg [facility] pO2, Art POC 91 80 - 108 mmHg [facility] Na, POC 136 135 - 145 mmol/L [facility] K POC 4.5 3.3 - 4.9 mmol/L [facility] Comment: Interpretive Data This method is not able to assess for hemolysis, which may falsely increase potassium concentrations. If further testing is needed to evaluate this result, consider in-laboratory plasma potassium. Current Interpretive Data was last revised on 2022. Cl, POC 107 97 - 110 mmol/L [facility] Ionized Ca, POC 4.45(L) 4.50 - 5.10 mg/dL [facility] Glucose, POC 182 70 - 199 mg/dL [facility] Lactate, POC 2.0 0.7 - 2.0 mmol/L [facility] O2Hb, Art POC 96.0(H) 90.0 - 95.0 % [facility] Carboxhgb fract 0.4 0.0 - 2.9 % [facility] Methemoglobin 0.1 0.0 - 1.9 % [facility] HHb, POC 3.4 0.0 - 5.0 % [facility] SO2 (dunia) arterial 97(H) 90 - 95 % [facility] Total CO2, Art POC 25 22 - 32 mmol/L [facility] BE, art, POC -3.9(L) -2.0 - 2.0 mmol/L [facility] HCO3, Art POC 22 20 - 30 mmol/L [facility] Hct, POC 39.0 38.9 - 50.3 % [facility] Total Hb, POC 13.0 13.0 - 17.5 g/dL [facility] Blood 10/01/2024 2:22 PM CDT 10/01/2024 2:22 PM CDT us Dipti Dalal MD LAB POCT ORDERABLES - DEVICE Fin al Result [facility] [address] Department [place] [address] * POC Activated Clotting Time, High Range (10/01/2024 2:20 PM CDT) ACT 112 87 - 138 sec Blood 10/01/2024 2:20 PM CDT 10/01/2024 2:20 PM CDT us Dipti Dalal MD LAB BLOOD ORDERABLES Final Resul t [facility] [address] Department [place] [address] * NM AN PROCEDURE PLACEHOLDER (10/01/2024 2:00 PM CDT) [...] code: DEMARIO placement and diagnostic exam, non-congenital (53727) ICD code(s) for medical necessity: R93.1 - [...] inferior: normal 16- Apical septal: normal 17- [place]: normal Valves: Aortic Valve: Annulus: normal Leaflet [...] the written comments contained within the report. us Radu Blair MD ANESTHESIA ORDERABLES Final Re sult * (ABNORMAL) POC Activated Clotting Time, High Range (10/01/2024 1:56 PM CDT) ACT 423(H) 87 - 138 sec Blood 10/01/2024 1:56 PM CDT 10/01/2024 1:56 PM CDT Dipti Dalal MD LAB BLOOD ORDERABLES Final Resul t [facility] [address] Department [place] [address] * (ABNORMAL) POC Blood Gas and Chemistries, Arterial - (10/01/2024 1:55 PM CDT) pH, Art POC 7.36 7.35 - 7.45 pCO2, Art POC 46(H) 35 - 45 mmHg [facility] pO2, Art POC 274(H) 80 - 108 mmHg [facility] Na, POC 136 135 - 145 mmol/L [facility] K POC 5.1(H) 3.3 - 4.9 mmol/L [facility] Comment: Interpretive Data This method is not able to assess for hemolysis, which may falsely increase potassium concentrations. If further testing is needed to evaluate this result, consider in-laboratory plasma potassium. Current Interpretive Data was last revised on 2022. Cl, POC 106 97 - 110 mmol/L [facility] Ionized Ca, POC 4.43(L) 4.50 - 5.10 mg/dL [facility] Glucose, POC 204(H) 70 - 199 mg/dL [facility] Lactate, POC 2.1(H) 0.7 - 2.0 mmol/L [facility] O2Hb, Art POC 97.9(H) 90.0 - 95.0 % [facility] Carboxhgb fract 0.4 0.0 - 2.9 % [facility] Methemoglobin 0.2 0.0 - 1.9 % [facility] HHb, POC 1.5 0.0 - 5.0 % [facility] SO2 (dunia) arterial 98(H) 90 - 95 % [facility] Total CO2, Art POC 27 22 - 32 mmol/L [facility] BE, art, POC 0.2 -2.0 - 2.0 mmol/L [facility] HCO3, Art POC 25 20 - 30 mmol/L [facility] Hct, POC 35.0(L) 38.9 - 50.3 % [facility] Total Hb, POC 11.8(L) 13.0 - 17.5 g/dL [facility] Blood 10/01/2024 1:55 PM CDT 10/01/2024 1:55 PM CDT Dipti Dalal MD LAB POCT ORDERABLES - DEVICE Fin al Result Performing Organization Address City/[facility]/ZIP Co de Phone Number [facility] [address] Department [place] [address] * (ABNORMAL) POC Activated Clotting Time, High Range (10/01/2024 1:24 PM CDT) ACT 503(H) 87 - 138 sec Blood 10/01/2024 1:24 PM CDT 10/01/2024 1:24 PM CDT Dipti Dalal MD LAB BLOOD ORDERABLES Final Resul t Performing Organization Address [facility] Co de Phone Number [facility] [address] Department [place] [address] * (ABNORMAL) POC Blood Gas and Chemistries, Arterial - (10/01/2024 1:12 PM CDT) pH, Art POC 7.36 7.35 - 7.45 pCO2, Art POC 38 35 - 45 mmHg [facility] pO2, Art POC 221(H) 80 - 108 mmHg [facility] Na, POC 132(L) 135 - 145 mmol/L [facility] K POC 5.1(H) 3.3 - 4.9 mmol/L [facility] Comment: Interpretive Data This method is not able to assess for hemolysis, which may falsely increase potassium concentrations. If further testing is needed to evaluate this result, consider in-laboratory plasma potassium. Current Interpretive Data was last revised on 2022. Cl, POC 107 97 - 110 mmol/L [facility] Ionized Ca, POC 4.53 4.50 - 5.10 mg/dL [facility] Glucose, POC 228(H) 70 - 199 mg/dL [facility] Lactate, POC 1.4 0.7 - 2.0 mmol/L [facility] O2Hb, Art POC 97.6(H) 90.0 - 95.0 % [facility] Carboxhgb fract 0.3 0.0 - 2.9 % [facility] Methemoglobin 0.4 0.0 - 1.9 % [facility] HHb, POC 1.8 0.0 - 5.0 % [facility] SO2 (dunia) arterial 98(H) 90 - 95 % [facility] Total CO2, Art POC 23 22 - 32 mmol/L [facility] BE, art, POC -3.6(L) -2.0 - 2.0 mmol/L [facility] HCO3, Art POC 22 20 - 30 mmol/L [facility] Hct, POC 37.0(L) 38.9 - 50.3 % [facility] Total Hb, POC 12.3(L) 13.0 - 17.5 g/dL [facility] Blood 10/01/2024 1:12 PM CDT 10/01/2024 1:12 PM CDT Dipti Dalal MD LAB POCT ORDERABLES - DEVICE Fin al Result Performing Organization Address [facility] Co de Phone Number [facility] [address] Department [place], [place] [id number] * (ABNORMAL) POC Activated Clotting Time, High Range (10/01/2024 1:11 PM CDT) ACT 448(H) 87 - 138 sec Blood 10/01/2024 1:11 PM CDT 10/01/2024 1:11 PM CDT Dipti Dalal MD LAB BLOOD ORDERABLES Final Resul t Performing Organization Address City/[facility]/ZIP Co de Phone Number [facility] [address] [place] [address] * (ABNORMAL) POC Activated Clotting Time, High Range (10/01/2024 12:41 PM CDT) ACT 440(H) 87 - 138 sec Blood 10/01/2024 12:4 1 PM CDT 10/01/2024 12:41 PM CDT us Dipti Dalal MD LAB BLOOD ORDERABLES Final Resul t [facility] [address] Department [place] [address] * (ABNORMAL) POC Blood Gas and Chemistries, Arterial - (10/01/2024 12:41 PM CDT) pH, Art POC 7.36 7.35 - 7.45 pCO2, Art POC 42 35 - 45 mmHg [facility] pO2, Art POC 226(H) 80 - 108 mmHg [facility] Na, POC 132(L) 135 - 145 mmol/L [facility] K POC 5.5(H) 3.3 - 4.9 mmol/L [facility] Comment: Interpretive Data This method is not able to assess for hemolysis, which may falsely increase potassium concentrations. If further testing is needed to evaluate this result, consider in-laboratory plasma potassium. Current Interpretive Data was last revised on 2022. Cl, POC 106 97 - 110 mmol/L [facility] Ionized Ca, POC 4.52 4.50 - 5.10 mg/dL [facility] Glucose, POC 237(H) 70 - 199 mg/dL [facility] Lactate, POC 1.3 0.7 - 2.0 mmol/L [facility] O2Hb, Art POC 97.9(H) 90.0 - 95.0 % [facility] Carboxhgb fract 0.0 0.0 - 2.9 % [facility] Methemoglobin 0.1 0.0 - 1.9 % [facility] HHb, POC 2.0 0.0 - 5.0 % [facility] SO2 (dunia) arterial 98(H) 90 - 95 % [facility] Total CO2, Art POC 25 22 - 32 mmol/L [facility] BE, art, POC -1.7 -2.0 - 2.0 mmol/L [facility] HCO3, Art POC 24 20 - 30 mmol/L [facility] Hct, POC 37.0(L) 38.9 - 50.3 % [facility] Total Hb, POC 12.3(L) 13.0 - 17.5 g/dL [facility] Blood 10/01/2024 12:4 1 PM CDT 10/01/2024 12:41 PM CDT Dipti Dalal MD LAB POCT ORDERABLES - DEVICE Fin al Result Performing Organization Address [facility] Co de Phone Number [facility] [address] [place] [address] * (ABNORMAL) POC Activated Clotting Time, High Range (10/01/2024 12:14 PM CDT) ACT 417(H) 87 - 138 sec Blood 10/01/2024 12:1 4 PM CDT 10/01/2024 12:14 PM CDT Dipti Dalal MD LAB BLOOD ORDERABLES Final Resul t Performing Organization Address [facility] Co de Phone Number [facility] [address] [place] [address] * (ABNORMAL) POC Blood Gas and Chemistries, Venous - (10/01/2024 11:55 AM CDT) pH, Jarrod POC 7.31(L) 7.32 - 7.45 pCO2, jarrod POC 48 40 - 50 mmHg [facility] pO2, jarrod POC 46(H) 35 - 42 mmHg [facility] Na, POC 133(L) 135 - 145 mmol/L [facility] K POC 4.7 3.3 - 4.9 mmol/L [facility] Comment: Interpretive Data This method is not able to assess for hemolysis, which may falsely increase potassium concentrations. If further testing is needed to evaluate this result, consider in-laboratory plasma potassium. Current Interpretive Data was last revised on 2022. Cl, POC 106 97 - 110 mmol/L [facility] Ionized Ca, POC 4.57 4.50 - 5.10 mg/dL [facility] Glucose, POC 186 70 - 199 mg/dL [facility] Lactate, POC 1.0 0.7 - 2.0 mmol/L [facility] O2Hb, Jarrod POC 79.0(L) 90.0 - 95.0 % [facility] Carboxhgb fract 0.6 0.0 - 2.9 % [facility] Methemoglobin 0.3 0.0 - 1.9 % [facility] HHb, POC 20.2(H) 0.0 - 5.0 % [facility] O2 Sat, Jarrod POC (Dunia) 80(H) 68 - 77 % [facility] Total CO2, jarrod POC 26 22 - 32 mmol/L [facility] Base excess, jarrod POC -2.4 mmol/L [facility] HCO3, Jarrod POC 23 20 - 30 mmol/L [facility] Hct, POC 37.0(L) 38.9 - 50.3 % [facility] Total Hb, POC 12.4(L) 13.0 - 17.5 g/dL [facility] Blood 10/01/2024 11:5 5 AM CDT 10/01/2024 11:55 AM CDT Dipti Dalal MD LAB POCT ORDERABLES - DEVICE Fin al Result Performing Organization Address [facility] Co de Phone Number [facility] [address] [place] [address] * (ABNORMAL) POC Activated Clotting Time, High Range (10/01/2024 11:53 AM CDT) ACT 492(H) 87 - 138 sec Blood 10/01/2024 11:5 3 AM CDT 10/01/2024 11:53 AM CDT Dipti Dalal MD LAB BLOOD ORDERABLES Final Resul t Performing Organization Address [facility] Co de Phone Number [facility] [address] [place] [address] * (ABNORMAL) POC Blood Gas and Chemistries, Arterial - (10/01/2024 11:40 AM CDT) pH, Art POC 7.33(L) 7.35 - 7.45 pCO2, Art POC 44 35 - 45 mmHg [facility] pO2, Art POC 214(H) 80 - 108 mmHg [facility] Na, POC 134(L) 135 - 145 mmol/L [facility] K POC 4.2 3.3 - 4.9 mmol/L [facility] Comment: Interpretive Data This method is not able to assess for hemolysis, which may falsely increase potassium concentrations. If further testing is needed to evaluate this result, consider in-laboratory plasma potassium. Current Interpretive Data was last revised on 2022. Cl, POC 106 97 - 110 mmol/L [facility] Ionized Ca, POC 4.56 4.50 - 5.10 mg/dL [facility] Glucose, POC 186 70 - 199 mg/dL [facility] Lactate, POC 0.8 0.7 - 2.0 mmol/L [facility] O2Hb, Art POC 97.9(H) 90.0 - 95.0 % [facility] Carboxhgb fract 0.3 0.0 - 2.9 % [facility] Methemoglobin 0.2 0.0 - 1.9 % [facility] HHb, POC 1.6 0.0 - 5.0 % [facility] SO2 (dunia) arterial 98(H) 90 - 95 % [facility] Total CO2, Art POC 25 22 - 32 mmol/L [facility] BE, art, POC -2.8(L) -2.0 - 2.0 mmol/L [facility] HCO3, Art POC 23 20 - 30 mmol/L [facility] Hct, POC 38.0(L) 38.9 - 50.3 % [facility] Total Hb, POC 12.6(L) 13.0 - 17.5 g/dL [facility] Blood 10/01/2024 11:4 0 AM CDT 10/01/2024 11:40 AM CDT us Dipti Dalal MD LAB POCT ORDERABLES - DEVICE Fin al Result [facility] [address] Department [place] [address] * (ABNORMAL) POC Activated Clotting Time, High Range (10/01/2024 11:10 AM CDT) ACT 554(H) 87 - 138 sec Blood 10/01/2024 11:1 0 AM CDT 10/01/2024 11:10 AM CDT us Dipti Dalal MD LAB BLOOD ORDERABLES Final Resul t Performing Organization Address [facility]/ZIP Co de Phone Number [facility] [address] Department [place] [address] * (ABNORMAL) POC Blood Gas and Chemistries, Arterial - (10/01/2024 11:10 AM CDT) Pathologist [facility] pH, Art POC 7.34(L) 7.35 - 7.45 pCO2, Art POC 46(H) 35 - 45 mmHg [facility] pO2, Art POC 359(H) 80 - 108 mmHg [facility] Na, POC 133(L) 135 - 145 mmol/L [facility] K POC 4.5 3.3 - 4.9 mmol/L [facility] Comment: Interpretive Data This method is not able to assess for hemolysis, which may falsely increase potassium concentrations. If further testing is needed to evaluate this result, consider in-laboratory plasma potassium. Current Interpretive Data was last revised on 2022. Cl, POC 104 97 - 110 mmol/L [facility] Ionized Ca, POC 4.77 4.50 - 5.10 mg/dL [facility] Glucose, POC 205(H) 70 - 199 mg/dL [facility] Lactate, POC 1.0 0.7 - 2.0 mmol/L [facility] O2Hb, Art POC 97.7(H) 90.0 - 95.0 % [facility] Carboxhgb fract 0.0 0.0 - 2.9 % [facility] Methemoglobin 0.4 0.0 - 1.9 % [facility] HHb, POC 1.9 0.0 - 5.0 % [facility] SO2 (dunia) arterial 98(H) 90 - 95 % [facility] Total CO2, Art POC 26 22 - 32 mmol/L [facility] BE, art, POC -1.4 -2.0 - 2.0 mmol/L [facility] HCO3, Art POC 24 20 - 30 mmol/L [facility] Hct, POC 44.0 38.9 - 50.3 % [facility] Total Hb, POC 14.5 13.0 - 17.5 g/dL [facility] Blood 10/01/2024 11:1 0 AM CDT 10/01/2024 11:10 AM CDT us Dipti Dalal MD LAB POCT ORDERABLES - DEVICE Fin al Result [facility] [address] Department [place] [address] * NM AN CENTRAL LINE QUADRUPLE LUMEN, NM AN PROCEDURE PLACEHOLDER (10/01/2024 9:37 AM CDT) Narrative Radu Blair MD - 10/01/2024 9:37 AM CDT Radu Blair MD 10/01/2024 9:38 AM Central Venous Line Patient location: OR Indication: central venous access and CVP monitoring Staff: Supervising provider: Radu Blair MD Placed by: SOLE STAINER: Ashish Burnham CRNA Procedure prep: Patient position: [...] AN SHEATH INTRODUCER PERFORMABLE, PULMONARY ARTERY CATH, NM AN PROCEDURE PLACEHOLDER (59:37 AM CDT) Radu Moe MD - 10/01/2024 9:37 AM CDT Radu Blair MD 10/01/2024 9:37 AM Central Venous Line Patient location: OR Indication: central venous access and CVP monitoring Staff: Supervising provider: Radu Blair MD Placed by: SOLE STAINER: Ashish Burnham CRNA Procedure prep: Patient position: [...] MD ANESTHESIA ORDERABLES Final Re sult * NM AN PROCEDURE PLACEHOLDER (10/01/2024 9:36 AM CDT) Radu Moe MD - 10/01/2024 9:36 AM CDT Radu Blair MD 10/01/2024 9:39 AM Arterial Line Patient location: OR Indication: continuous blood pressure monitoring and blood sampling needed Staff: Supervising provider: Radu Blair MD Placed by: SOLE STAINER: Ashish Burnham CRNA Procedure prep: Prep solution: [...] no complications Radu Blair MD ANESTHESIA ORDERABLES Edited R esult - Final * NM AN ELECTIVE ENDOTRACHEAL AIRWAY, NM AN PROCEDURE PLACEHOLDER (10/01/2024 9:35 AM CDT) Narrative Radu Blair MD - 10/01/2024 9:35 AM CDT Radu [...] Time, High Range (10/01/2024 9:24 AM CDT) ACT 91 87 - 138 sec Blood 10/01/2024 9:24 AM CDT 10/01/2024 9:24 AM CDT Dipti Dalal MD LAB BLOOD ORDERABLES Final Resul t Performing Organization Address City/State/[facility] Co de Phone Number [facility] [address] [facility] [place], [place] [id number] * Prepare RBC (10/01/2024 9:12 AM CDT) [facility] Product code [id number] Unit Number [id number] 7-[id number] [facility] Product Blood Type APOS [facility] Dispense Status RETURNED [facility] Product code [id number] [facility] Unit Number [id number] 6-[id number] [facility] Product Blood Type APOS [facility] Dispense Status RETURNED [facility] Blood 10/01/2024 9:12 AM CDT 10/01/2024 9:12 AM CDT us Dipti Dalal MD BLOOD BANK PRODUCT ORDERABLES Fi nal Result Performing Organization Address [facility] Co de Phone Number [facility] [address] [place] [address] * POCT glucose (10/01/2024 7:13 AM CDT) [facility] Glucose, POC 196 70 - 199 mg/dL Comment: For Glucose values <35 mg/dl when Hematocrit is >60 mg/dl,the test may not accurately detect significant hypoglycemia,and testing in the Laboratory should be considered if clinically indicated. Blood 10/01/2024 7:13 AM CDT 10/01/2024 7:13 AM CDT us Dipti Dalal MD LAB POCT ORDERABLES - DEVICE Fin al Result Performing Organization Address [facility] Co de Phone Number [facility] [address] [facility] [place], [place] [id number] * DEMARIO Add-On For OR (10/01/2024 6:40 AM CDT) [facility] BSA 2.66 m2 CONS SCIMAGE Narrative CONS SCIMAGE - 10/01/2024 6:40 AM CDT Procedure Auto Finalized by Rule: BW CV DEMARIO DURING CASE OR Please see the Anesthesiologist's Procedure Note for the results. Radu Blair MD CV ECHO PROCEDURES Final Resul t Performing Organization Address [facility] de Phone Number CONS DEVYN * (ABNORMAL) aPTT (10/01/2024 5:39 AM CDT) [facility] aPTT 84(H) 28 - 38 sec Comment: Interpretive Data Heparin therapeutic range: 66.0 - 100.0 seconds. Range based on correlation with therapeutic heparin activity range of 0.3 - 0.7 Units/mL. Current interpretive data was last revised on 2023. Blood 10/01/2024 5:39 AM CDT 10/01/2024 5:39 AM CDT Dipti Dalal MD LAB BLOOD ORDERABLES Final Resul t Performing Organization Address [facility] de Phone Number [facility] [address] Department [place] [address] * (ABNORMAL) POCT glucose (10/01/2024 5:16 AM CDT) [facility] Glucose, POC 228(H) 70 - 199 mg/dL Comment: For Glucose values <35 mg/dl when Hematocrit is >60 mg/dl,the test may not accurately detect significant hypoglycemia,and testing in the Laboratory should be considered if clinically indicated. Blood 10/01/2024 5:16 AM CDT 10/01/2024 5:16 AM CDT Dipti Dalal MD LAB POCT ORDERABLES - DEVICE Fin al Result Performing Organization Address [facility] Co de Phone Number [facility] [address] [place] [address] * eGFR (10/01/2024 1:24 AM CDT) [facility] eGFR >90 >=60 mL/min/1. 73 m2 Comment: [...] of Race in Diagnosing Kidney Disease, JASN 202). The CKD-EPI equation should not be used for patients with unstable renal function and has not been validated in children and those over 70. Current interpretive data was last reviewed 2021. Blood 10/01/2024 1:24 AM CDT 10/01/2024 1:39 AM CDT us Dipti Dalal MD LAB BLOOD ORDERABLES Final Resul t [facility] [address] Department [place] [address] * Differential, auto (10/01/2024 1:24 AM CDT) Neutrophil abs 3.4 1.5 - 6.5 K/cumm Imm gran abs 0.1 0.0 - 0.1 K/cumm [facility] Lymphocyte abs 1.9 0.8 - 3.3 K/cumm [facility] Monocyte abs 0.5 0.2 - 0.8 K/cumm [facility] Eosinophil abs 0.1 0.0 - 0.5 K/cumm [facility] Basophil abs 0.0 0.0 - 0.1 K/cumm [facility] Neutrophil pct 57.1 % [facility] Comment: Interpretive Data Percent cell count reference ranges are not reported, since discordance with absolute values may lead to misinterpretation of CBC data. Current Interpretive Data was last revised on 2017. Imm gran pct 1.2 % [facility] Comment: Interpretive Data Percent cell count reference ranges are not reported, since discordance with absolute values may lead to misinterpretation of CBC data. Current Interpretive Data was last revised on 2017. Lymphocyte pct 31.7 % [facility] Comment: Interpretive Data Percent cell count reference ranges are not reported, since discordance with absolute values may lead to misinterpretation of CBC data. Current Interpretive Data was last revised on 2017. Monocyte pct 7.5 % [facility] Comment: Interpretive Data Percent cell count reference ranges are not reported, since discordance with absolute values may lead to misinterpretation of CBC data. Current Interpretive Data was last revised on 2017. Eosinophil pct 1.8 % [facility] Comment: Interpretive Data Percent cell count reference ranges are not reported, since discordance with absolute values may lead to misinterpretation of CBC data. Current Interpretive Data was last revised on 2017. Basophil pct 0.7 % [facility] Comment: Interpretive Data Percent cell count reference ranges are not reported, since discordance with absolute values may lead to misinterpretation of CBC data. Current Interpretive Data was last revised on 2017. Blood 10/01/2024 1:24 AM CDT 10/01/2024 1:39 AM CDT us Dipti Dalal MD LAB BLOOD ORDERABLES Final Resul t [facility] [address] Department [place] [address] * (ABNORMAL) CBC with auto differential (10/01/2024 1:24 AM CDT) WBC 6.0 3.8 - 9.9 K/cumm Hgb 14.5 13.0 - 17.5 g/dL [facility] Hct 44.2 38.9 - 50.3 % [facility] Plt 127(L) 150 - 400 K/cumm [facility] MPV 8.8(L) 9.1 - 12.3 fL [facility] RBC 4.45 4.30 - 5.80 M/cumm [facility] MCV 99.3(H) 81.3 - 96.4 fL [facility] MCH 32.6 27.1 - 33.3 pg [facility] MCHC 32.8 32.3 - 35.7 g/dL [facility] RDW CV 13.5 11.1 - 14.9 % [facility] RDW SD 49.9(H) 35.7 - 48.1 fL [facility] NRBC abs 0.00 0.00 - 0.01 K/cumm [facility] Blood 10/01/2024 1:24 AM CDT 10/01/2024 1:39 AM CDT us Dipti Dalal MD LAB BLOOD ORDERABLES Final Resul t [facility] [address] Department [place] [address] * (ABNORMAL) Basic metabolic panel (10/01/2024 1:24 AM CDT) Sodium 138 135 - 145 mmol/L Potassium, pl 4.5 3.3 - 4.9 mmol/L [facility] Chloride 102 97 - 110 mmol/L [facility] CO2 21(L) 22 - 32 mmol/L [facility] Anion gap 15 2 - 15 mmol/L [facility] BUN 15 6 - 25 mg/dL [facility] Creatinine 0.82 0.80 - 1.30 mg/dL [facility] Glucose 247(H) 70 - 199 mg/dL [facility] Comment: Interpretive Data Fasting glucose [...] 2022. Calcium 8.9 8.5 - 10.3 mg/dL [facility] Blood 10/01/2024 1:24 AM CDT 10/01/2024 1:39 AM CDT Dipti Dalal MD LAB BLOOD ORDERABLES Final Resul t Performing Organization Address City/[facility] Co de Phone Number [facility] [address] [facility] [place] [address] * (ABNORMAL) POCT glucose (09/30/2024 8:10 PM CDT) Glucose, POC 201(H) 70 - 199 mg/dL Comment: For Glucose values <35 mg/dl when Hematocrit is >60 mg/dl,the test may not accurately detect significant hypoglycemia,and testing in the Laboratory should be considered if clinically indicated. Blood 09/30/2024 8:10 PM CDT 09/30/2024 8:10 PM CDT Result [facility] Dipti Dalal MD LAB POCT ORDERABLES - DEVICE Fin al Result Performing Organization Address [facility] Co de Phone Number [facility] [address] [facility] [place] [address] * (ABNORMAL) POCT glucose (09/30/2024 6:00 PM CDT) Glucose, POC 211(H) 70 - 199 mg/dL Comment: For Glucose values <35 mg/dl when Hematocrit is >60 mg/dl,the test may not accurately detect significant hypoglycemia,and testing in the Laboratory should be considered if clinically indicated. Blood 09/30/2024 6:00 PM CDT 09/30/2024 6:00 PM CDT Dipti Dalal MD LAB POCT ORDERABLES - DEVICE Fin al Result Performing Organization Address City/[facility]/ZIP Co de Phone Number [facility] [address] [facility] [place] [address] * (ABNORMAL) POCT glucose (09/30/2024 12:55 PM CDT) Glucose, POC 219(H) 70 - 199 mg/dL Comment: For Glucose values <35 mg/dl when Hematocrit is >60 mg/dl,the test may not accurately detect significant hypoglycemia,and testing in the Laboratory should be considered if clinically indicated. Blood 09/30/2024 12:5 5 PM CDT 09/30/2024 12:55 PM CDT Dipti Dalal MD LAB POCT ORDERABLES - DEVICE Fin al Result Performing Organization Address City/[facility]/ZIP Co de Phone Number [facility] [address] Department [place] [address] * POCT glucose (09/30/2024 8:46 AM CDT) Glucose, POC 189 70 - 199 mg/dL Comment: For Glucose values <35 mg/dl when Hematocrit is >60 mg/dl,the test may not accurately detect significant hypoglycemia,and testing in the Laboratory should be considered if clinically indicated. Blood 09/30/2024 8:46 AM CDT 09/30/2024 8:46 AM CDT us Dipti Dalal MD LAB POCT ORDERABLES - DEVICE Fin al Result Performing Organization Address City/[facility]/ZIP Co de Phone Number [facility] [address] Department [place] [address] * eGFR (09/30/2024 3:46 AM CDT) eGFR [...] MD LAB BLOOD ORDERABLES Final Resul t [facility] [address] Department [place] [address] * Differential, auto (09/30/2024 3:46 AM CDT) Neutrophil abs 3.4 1.5 - 6.5 K/cumm Imm gran abs 0.1 0.0 - 0.1 K/cumm [facility] Lymphocyte abs 1.7 0.8 - 3.3 K/cumm [facility] Monocyte abs 0.5 0.2 - 0.8 K/cumm [facility] Eosinophil abs 0.1 0.0 - 0.5 K/cumm [facility] Basophil abs 0.0 0.0 - 0.1 K/cumm [facility] Neutrophil pct 58.6 % [facility] Comment: Interpretive Data Percent cell count reference ranges are not reported, since discordance with absolute values may lead to misinterpretation of CBC data. Current Interpretive Data was last revised on 2017. Imm gran pct 1.0 % [facility] Comment: Interpretive Data Percent cell count reference ranges are not reported, since discordance with absolute values may lead to misinterpretation of CBC data. Current Interpretive Data was last revised on 2017. Lymphocyte pct 29.4 % [facility] Comment: Interpretive Data Percent cell count reference ranges are not reported, since discordance with absolute values may lead to misinterpretation of CBC data. Current Interpretive Data was last revised on 2017. Monocyte pct 8.0 % [facility] Comment: Interpretive Data Percent cell count reference ranges are not reported, since discordance with absolute values may lead to misinterpretation of CBC data. Current Interpretive Data was last revised on 2017. Eosinophil pct 2.3 % [facility] Comment: Interpretive Data Percent cell count reference ranges are not reported, since discordance with absolute values may lead to misinterpretation of CBC data. Current Interpretive Data was last revised on 2017. Basophil pct 0.7 % [facility] Comment: Interpretive Data Percent cell count reference ranges are not reported, since discordance with absolute values may lead to misinterpretation of CBC data. Current Interpretive Data was last revised on 2017. Blood 09/30/2024 3:46 AM CDT 09/30/2024 4:35 AM CDT us Dipti Dalla MD LAB BLOOD ORDERABLES Final Resul t [facility] [address] Department [place] [address] * (ABNORMAL) CBC with auto differential (09/30/2024 3:46 AM CDT) WBC 5.8 3.8 - 9.9 K/cumm Hgb 14.6 13.0 - 17.5 g/dL [facility] Hct 45.4 38.9 - 50.3 % [facility] Plt 135(L) 150 - 400 K/cumm [facility] MPV 9.0(L) 9.1 - 12.3 fL [facility] RBC 4.53 4.30 - 5.80 M/cumm [facility] MCV 100.2(H) 81.3 - 96.4 fL [facility] MCH 32.2 27.1 - 33.3 pg [facility] MCHC 32.2(L) 32.3 - 35.7 g/dL [facility] RDW CV 13.7 11.1 - 14.9 % [facility] RDW SD 50.8(H) 35.7 - 48.1 fL [facility] NRBC abs 0.00 0.00 - 0.01 K/cumm [facility] Blood 09/30/2024 3:46 AM CDT 09/30/2024 4:35 AM CDT Dipti Dalal MD LAB BLOOD ORDERABLES Final Resul t Performing Organization Address [facility] Co de Phone Number [facility] [address] [place], [place] [id number] * (ABNORMAL) aPTT (09/30/2024 3:46 AM CDT) [facility] aPTT 86(H) 28 - 38 sec Comment: Interpretive Data Heparin therapeutic range: 66.0 - 100.0 seconds. Range based on correlation with therapeutic heparin activity range of 0.3 - 0.7 Units/mL. Current interpretive data was last revised on 2023. Blood 09/30/2024 3:46 AM CDT 09/30/2024 4:33 AM CDT us Marshall Chin MD LAB BLOOD ORDERABLES Final Result Performing Organization Address [facility] de Phone Number [facility] [address] [place], [place] [id number] * (ABNORMAL) Basic metabolic panel (09/30/2024 3:46 AM CDT) [facility] Sodium 136 135 - 145 mmol/L Potassium, pl 3.8 3.3 - 4.9 mmol/L [facility] Chloride 100 97 - 110 mmol/L [facility] CO2 21(L) 22 - 32 mmol/L [facility] Anion gap 15 2 - 15 mmol/L [facility] BUN 11 6 - 25 mg/dL [facility] Creatinine 0.66(L) 0.80 - 1.30 mg/dL [facility] Glucose 209(H) 70 - 199 mg/dL [facility] Comment: Interpretive Data Fasting glucose [...] 2022. Calcium 8.8 8.5 - 10.3 mg/dL [facility] Blood 09/30/2024 3:46 AM CDT 09/30/2024 4:36 AM CDT Dipti Dalal MD LAB BLOOD ORDERABLES Final Resul t Performing Organization Address City/[facility]/ZIP Co de Phone Number [facility] [address] [place] [address] * Type and screen (09/30/2024 3:42 AM CDT) ABO Rh A Positive Kin, indirect Negative [facility] Blood 09/30/2024 3:42 AM CDT 09/30/2024 4:41 AM CDT Narrative [facility] - 09/30/2024 5:53 AM CDT PRE-OP CABG 10/01/24 Has the patient had Daratumumab or Isatuximab in the past 6 months?->No us Matias Limon MD LAB BLOOD BANK TEST ORDE AMADOR Final Result [facility] [address] Department [place] [address] * (ABNORMAL) POCT glucose (09/29/2024 8:52 PM [...] DEVICE Fin al Result Performing Organization Address [facility] Co de Phone Number [facility] [address] [facility] [place] [address] * (ABNORMAL) POCT glucose (09/29/2024 5:57 PM CDT) Glucose, POC 210(H) 70 - 199 mg/dL Comment: For Glucose values <35 mg/dl when Hematocrit is >60 mg/dl,the test may not accurately detect significant hypoglycemia,and testing in the Laboratory should be considered if clinically indicated. Blood 09/29/2024 5:57 PM CDT 09/29/2024 5:57 PM CDT Result [facility] Dipti Dalal MD LAB POCT ORDERABLES - DEVICE Fin al Result Performing Organization Address [facility] Co de Phone Number [facility] [address] [facility] [place], [place] [id number] * (ABNORMAL) aPTT (09/29/2024 2:25 PM CDT) [...] BLOOD ORDERABLES Final Result Performing Organization Address [facility] Co de Phone Number [facility] [address] [facility] [place] [address] * POCT glucose (09/29/2024 12:34 PM CDT) Glucose, POC 172 70 - 199 mg/dL Comment: For Glucose values <35 mg/dl when Hematocrit is >60 mg/dl,the test may not accurately detect significant hypoglycemia,and testing in the Laboratory should be considered if clinically indicated. Blood 09/29/2024 12:3 4 PM CDT 09/29/2024 12:34 PM CDT Dipti Dalal MD LAB POCT ORDERABLES - DEVICE Fin al Result Performing Organization Address [facility] Co de Phone Number [facility] [address] [place] [address] * POCT glucose (09/29/2024 8:46 AM CDT) Glucose, POC 179 70 - 199 mg/dL Comment: For Glucose values <35 mg/dl when Hematocrit is >60 mg/dl,the test may not accurately detect significant hypoglycemia,and testing in the Laboratory should be considered if clinically indicated. Blood 09/29/2024 8:46 AM CDT 09/29/2024 8:46 AM CDT Dipti Dalal MD LAB POCT ORDERABLES - DEVICE Fin al Result Performing Organization Address City/[facility] Co de Phone Number [facility] [address] [place] [address] * (ABNORMAL) aPTT (09/29/2024 7:56 AM CDT) [...] ORDERABLES Final Resul t Performing Organization Address City/[facility]/ZIP Co de Phone Number [facility] [address] [place] [address] * eGFR (09/29/2024 4:37 AM CDT) eGFR [...] ORDERABLES Final Resul t Performing Organization Address City/[facility]/ZIP Co de Phone Number [facility] [address] Department [place], [place] [id number] * Differential, auto (09/29/2024 4:37 AM CDT) Neutrophil abs 3.5 1.5 - 6.5 K/cumm Imm gran abs 0.0 0.0 - 0.1 K/cumm [facility] Lymphocyte abs 2.0 0.8 - 3.3 K/cumm [facility] Monocyte abs 0.5 0.2 - 0.8 K/cumm [facility] Eosinophil abs 0.1 0.0 - 0.5 K/cumm [facility] Basophil abs 0.0 0.0 - 0.1 K/cumm [facility] Neutrophil pct 56.9 % [facility] Comment: Interpretive Data Percent cell count reference ranges are not reported, since discordance with absolute values may lead to misinterpretation of CBC data. Current Interpretive Data was last revised on 2017. Imm gran pct 0.6 % [facility] Comment: Interpretive Data Percent cell count reference ranges are not reported, since discordance with absolute values may lead to misinterpretation of CBC data. Current Interpretive Data was last revised on 2017. Lymphocyte pct 32.6 % [facility] Comment: Interpretive Data Percent cell count reference ranges are not reported, since discordance with absolute values may lead to misinterpretation of CBC data. Current Interpretive Data was last revised on 2017. Monocyte pct 7.8 % [facility] Comment: Interpretive Data Percent cell count reference ranges are not reported, since discordance with absolute values may lead to misinterpretation of CBC data. Current Interpretive Data was last revised on 2017. Eosinophil pct 1.6 % [facility] Comment: Interpretive Data Percent cell count reference ranges are not reported, since discordance with absolute values may lead to misinterpretation of CBC data. Current Interpretive Data was last revised on 2017. Basophil pct 0.5 % [facility] Comment: Interpretive Data Percent cell count reference ranges are not reported, since discordance with absolute values may lead to misinterpretation of CBC data. Current Interpretive Data was last revised on 2017. Blood 09/29/2024 4:37 AM CDT 09/29/2024 5:53 AM CDT us Dipti Dalal MD LAB BLOOD ORDERABLES Final Resul t [facility] [address] Department [place] [address] * Check Sample (09/29/2024 4:37 AM CDT) Pathologist [facility] ABO Rh A Positive MBC HCLL OTHER 09/29/2024 4:37 AM CDT 09/29/2024 5:51 PM CDT Dipti Dalal MD LAB BLOOD ORDERABLES Final Resul t [facility] [address] [place] [address] MBC * (ABNORMAL) CBC with auto differential (09/29/2024 4:37 AM CDT) [facility] WBC 6.2 3.8 - 9.9 K/cumm Hgb 15.4 13.0 - 17.5 g/dL [facility] Hct 46.9 38.9 - 50.3 % [facility] Plt 92(L) 150 - 400 K/cumm [facility] MPV 10.2 9.1 - 12.3 fL [facility] RBC 4.62 4.30 - 5.80 M/cumm [facility] MCV 101.5(H) 81.3 - 96.4 fL [facility] MCH 33.3 27.1 - 33.3 pg [facility] MCHC 32.8 32.3 - 35.7 g/dL [facility] RDW CV 14.0 11.1 - 14.9 % [facility] RDW SD 53.1(H) 35.7 - 48.1 fL [facility] NRBC abs 0.00 0.00 - 0.01 K/cumm [facility] Blood 09/29/2024 4:37 AM CDT 09/29/2024 5:53 AM CDT Dipti Dalal MD LAB BLOOD ORDERABLES Final Resul t [facility] [address] [place] [address] * (ABNORMAL) Basic metabolic panel (09/29/2024 4:37 AM CDT) [facility] Sodium 138 135 - 145 mmol/L Potassium, pl 4.7 3.3 - 4.9 mmol/L [facility] Comment:Hemolyzed; potassium value may be falsely elevated by as much as 0.6 - 1.0 mmol/L. Suggest redraw and reanalysis Chloride 101 97 - 110 mmol/L [facility] CO2 22 22 - 32 mmol/L [facility] Anion gap 15 2 - 15 mmol/L [facility] BUN 12 6 - 25 mg/dL [facility] Creatinine 0.74(L) 0.80 - 1.30 mg/dL [facility] Glucose 162 70 - 199 mg/dL [facility] Comment: Interpretive Data Fasting glucose [...] 2022. Calcium 9.3 8.5 - 10.3 mg/dL [facility] Blood 09/29/2024 4:37 AM CDT 09/29/2024 5:52 AM CDT Dipti Dalal MD LAB BLOOD ORDERABLES Final Resul t [facility] [address] Department [place] [address] * aPTT (09/29/2024 12:27 AM CDT) [facility] aPTT 117.0 28 - 38 sec Comment: Interpretive Data Heparin therapeutic range: 66.0 - 100.0 seconds. Range based on correlation with therapeutic heparin activity range of 0.3 - 0.7 Units/mL. Current interpretive data was last revised on 2023. Blood 09/29/2024 12:2 7 AM CDT 09/29/2024 12:27 AM CDT Dipti Dalal MD LAB BLOOD ORDERABLES Final Resul t Performing Organization Address [facility] Co de Phone Number [facility] [address] Department [place] [address] * (ABNORMAL) POCT glucose (09/28/2024 7:58 PM [...] DEVICE Fin al Result Performing Organization Address [facility] de Phone Number [facility] [address] [place] [address] * (ABNORMAL) POCT glucose (09/28/2024 5:54 PM CDT) Glucose, POC 207(H) 70 - 199 mg/dL Comment: For Glucose values <35 mg/dl when Hematocrit is >60 mg/dl,the test may not accurately detect significant hypoglycemia,and testing in the Laboratory should be considered if clinically indicated. Blood 09/28/2024 5:54 PM CDT 09/28/2024 5:54 PM CDT Result [facility] Dipti Dalal MD LAB POCT ORDERABLES - DEVICE Fin al Result Performing Organization Address [facility] Co de Phone Number [facility] [address] Department [place] [address] * aPTT (09/28/2024 3:49 PM CDT) aPTT 37 28 - 38 sec Comment: Interpretive Data Heparin therapeutic range: 66.0 - 100.0 seconds. Range based on correlation with therapeutic heparin activity range of 0.3 - 0.7 Units/mL. Current interpretive data was last revised on 2023. Blood 09/28/2024 3:49 PM CDT 09/28/2024 4:07 PM CDT us Dipti Dalal MD LAB BLOOD ORDERABLES Final Resul t [facility] [address] Department [place] [address] * XR Chest PA Lateral 2 View [...] infiltrative. Electronically signed by: Berenice Moore M.D. us Matias Limon MD IMG XR PROCEDURES Final Result * Prepare RBC: 2 Units (09/28/2024 12:53 PM CDT) [facility] Product code [id number] [facility] Unit Number [id number] 2-I [facility] Product Blood Type APOS [facility] Dispense Status RETURNED [facility] Product code [id number] Unit Number [id number] 6-* [facility] Product Blood Type APOS [facility] Dispense Status RETURNED [facility] Blood 09/28/2024 12:5 3 PM CDT Narrative [facility] - 10/01/2024 8:35 AM CDT Specify Procedure:->CABG Are special requirements needed? (All products are leukoreduced and CMV- safe)- >No Date required:-[id number] [facility] [id number] Reasons:-Hold for procedure (specify procedure)} Matias Limon MD BLOOD BANK PRODUCT ORDER MICAH Final Result Performing Organization Address [facility] Co de Phone Number [facility] [address] [place] [address] * (ABNORMAL) POCT glucose (09/28/2024 11:00 AM CDT) [facility] Glucose, POC 230(H) 70 - 199 mg/dL Comment: For Glucose values <35 mg/dl when Hematocrit is >60 mg/dl,the test may not accurately detect significant hypoglycemia,and testing in the Laboratory should be considered if clinically indicated. Blood 09/28/2024 11:0 0 AM CDT 09/28/2024 11:00 AM CDT Dipti Dalal MD LAB POCT ORDERABLES - DEVICE Fin al Result Performing Organization Address City/[facility]/ZIP Co de Phone Number [facility] [address] [place] [address] * eGFR (09/28/2024 8:28 AM CDT) [facility] eGFR >90 >=60 mL/min/1. 73 m2 Comment: [...] of Race in Diagnosing Kidney Disease, JASN 202). The CKD-EPI equation should not be used for patients with unstable renal function and has not been validated in children and those over 70. Current interpretive data was last reviewed 2021. Blood 09/28/2024 8:28 AM CDT 09/28/2024 8:39 AM CDT Des Vazquez MD LAB BLOOD ORDERABLES nal Result [facility] [address] Department [place] [address] * Differential, auto (09/28/2024 8:28 AM CDT) Neutrophil abs 3.6 1.5 - 6.5 K/cumm Imm gran abs 0.1 0.0 - 0.1 K/cumm [facility] Lymphocyte abs 1.7 0.8 - 3.3 K/cumm [facility] Monocyte abs 0.5 0.2 - 0.8 K/cumm [facility] Eosinophil abs 0.1 0.0 - 0.5 K/cumm [facility] Basophil abs 0.0 0.0 - 0.1 K/cumm [facility] Neutrophil pct 61.0 % [facility] Comment: Interpretive Data Percent cell count reference ranges are not reported, since discordance with absolute values may lead to misinterpretation of CBC data. Current Interpretive Data was last revised on 2017. Imm gran pct 1.0 % [facility] Comment: Interpretive Data Percent cell count reference ranges are not reported, since discordance with absolute values may lead to misinterpretation of CBC data. Current Interpretive Data was last revised on 2017. Lymphocyte pct 28.5 % [facility] Comment: Interpretive Data Percent cell count reference ranges are not reported, since discordance with absolute values may lead to misinterpretation of CBC data. Current Interpretive Data was last revised on 2017. Monocyte pct 7.5 % [facility] Comment: Interpretive Data Percent cell count reference ranges are not reported, since discordance with absolute values may lead to misinterpretation of CBC data. Current Interpretive Data was last revised on 2017. Eosinophil pct 1.5 % [facility] Comment: Interpretive Data Percent cell count reference ranges are not reported, since discordance with absolute values may lead to misinterpretation of CBC data. Current Interpretive Data was last revised on 2017. Basophil pct 0.5 % [facility] Comment: Interpretive Data Percent cell count reference ranges are not reported, since discordance with absolute values may lead to misinterpretation of CBC data. Current Interpretive Data was last revised on 2017. Blood 09/28/2024 8:28 AM CDT 09/28/2024 8:39 AM CDT Des Vazquez MD LAB BLOOD ORDERABLES Fi nal Result [facility] [address] Department [place] [address] * (ABNORMAL) CBC with auto differential (09/28/2024 8:28 AM CDT) WBC 6.0 3.8 - 9.9 K/cumm Hgb 15.0 13.0 - 17.5 g/dL [facility] Hct 45.3 38.9 - 50.3 % [facility] Plt 143(L) 150 - 400 K/cumm [facility] MPV 8.6(L) 9.1 - 12.3 fL [facility] RBC 4.59 4.30 - 5.80 M/cumm [facility] MCV 98.7(H) 81.3 - 96.4 fL [facility] MCH 32.7 27.1 - 33.3 pg [facility] MCHC 33.1 32.3 - 35.7 g/dL [facility] RDW CV 14.0 11.1 - 14.9 % [facility] RDW SD 50.6(H) 35.7 - 48.1 fL [facility] NRBC abs 0.00 0.00 - 0.01 K/cumm [facility] Blood 09/28/2024 8:28 AM CDT 09/28/2024 8:39 AM CDT Des Vazquez MD LAB BLOOD ORDERABLES Fi nal Result Performing Organization Address [facility] Co de Phone Number [facility] [address] Department [place], [place] [phone] * (ABNORMAL) aPTT (09/28/2024 8:28 AM CDT) aPTT 43(H) 28 - 38 sec Comment: Interpretive Data Heparin therapeutic range: 66.0 - 100.0 seconds. Range based on correlation with therapeutic heparin activity range of 0.3 - 0.7 Units/mL. Current interpretive data was last revised on 2023. Blood 09/28/2024 8:28 AM CDT 09/28/2024 8:40 AM CDT Julius Perez DO LAB BLOOD ORDERABLES F inal Result Performing Organization Address City/[facility]/ZIP Co de Phone Number [facility] [address] Department [place] [address] * Magnesium (09/28/2024 8:28 AM CDT) Pathologist [facility] Magnesium 1.9 1.4 - 2.5 mg/dL Blood 09/28/2024 8:28 AM CDT 09/28/2024 8:39 AM CDT Des Vazquez MD LAB BLOOD ORDERABLES Fi nal Result [facility] [address] Department [place] [address] * (ABNORMAL) Comprehensive metabolic panel (09/28/2024 8:28 AM CDT) Sodium 137 135 - 145 mmol/L Potassium, pl 4.2 3.3 - 4.9 mmol/L [facility] Chloride 99 97 - 110 mmol/L [facility] CO2 25 22 - 32 mmol/L [facility] Anion gap 13 2 - 15 mmol/L [facility] BUN 15 6 - 25 mg/dL [facility] Creatinine 0.68(L) 0.80 - 1.30 mg/dL [facility] Glucose 174 70 - 199 mg/dL [facility] Comment: Interpretive Data Fasting glucose [...] 2022. Calcium 9.1 8.5 - 10.3 mg/dL [facility] Bilirubin, total 0.5 0.1 - 1.2 mg/dL [facility] Protein, pl 6.8 6.5 - 8.5 g/dL [facility] Albumin 4.2 3.5 - 5.0 g/dL [facility] Alk phos 65 40 - 130 Units/L [facility] ALT 25 7 - 55 Units/L [facility] AST 19 10 - 50 Units/L [facility] Blood 09/28/2024 8:28 AM CDT 09/28/2024 8:39 AM CDT Des Vazquez MD LAB BLOOD ORDERABLES Fi nal Result Performing Organization Address [facility] Co de Phone Number [facility] [address] [place] [address] * POCT glucose (09/28/2024 8:27 AM CDT) [...] DEVICE Fin al Result Performing Organization Address [facility] Co de Phone Number [facility] [address] [facility] [place] [address] * POCT glucose (09/28/2024 3:17 AM CDT) Glucose, POC 184 70 - 199 mg/dL Blood 09/28/2024 3:17 AM CDT 09/28/2024 3:17 AM CDT us Georgina Meyer MD LAB POCT ORDERABLES - DEVICE Fi nal Result Performing Organization Address [facility] Co de Phone Number [facility] ([place]) 1 [facility] Department [place] [address] * aPTT (09/28/2024 1:01 AM CDT) aPTT 28 28 - 38 sec [facility] ([place]) Comment: Interpretive Data Heparin therapeutic range: 66.0 - 100.0 seconds. Range based on correlation with therapeutic heparin activity range of 0.3 - 0.7 Units/mL. Current interpretive data was last revised on 2023. Blood 09/28/2024 1:01 AM CDT 09/28/2024 1:04 AM CDT Georgina Meyer MD LAB BLOOD ORDERABLES Final Resu lt Performing Organization Address [facility] Co de Phone Number [facility]QU[facility] ([place]) 1 [facility] [place] [address] * (ABNORMAL) POCT glucose (09/27/2024 8:56 PM CDT) Glucose, POC 229(H) 70 - 199 mg/dL Comment:Glu2: RN/MD Notified Blood 09/27/2024 8:56 PM CDT 09/27/2024 8:56 PM CDT Georgina Meyer MD LAB POCT ORDERABLES - DEVICE Fi nal Result Performing Organization Address [facility] de Phone Number [facility] JOAQUIN ([place]) 1 [facility] [place] [address] * (ABNORMAL) POCT glucose (09/27/2024 4:48 PM CDT) Glucose, POC 317(H) 70 - 199 mg/dL Blood 09/27/2024 4:48 PM CDT 09/27/2024 4:48 PM CDT Georgina Meyer MD LAB POCT ORDERABLES - DEVICE Fi nal Result Performing Organization Address [facility] de Phone Number [facility]RIANA JOAQUIN ([place]) [address] [facility] [place] [address] * (ABNORMAL) aPTT (09/27/2024 3:25 PM CDT) aPTT 45(H) 28 - 38 sec [facility] ([place]) Comment: Interpretive Data Heparin therapeutic range: 66.0 - 100.0 seconds. Range based on correlation with therapeutic heparin activity range of 0.3 - 0.7 Units/mL. Current interpretive data was last revised on 2023. Blood 09/27/2024 3:25 PM CDT 09/27/2024 3:27 PM CDT Narrative ADRIANA LewisELLSINORE) - 09/27/2024 3:39 PM CDT Baseline prior to heparin initiation Timbo Norton MD LAB BLOOD ORDERABLES Final Resu lt Performing Organization Address [facility] Co de Phone Number ADRIANA LewisELLSINORE) 1 [facility] [place] [address] * Protime-INR (09/27/2024 3:25 PM CDT) PT 11.8 9.7 - 13.0 sec ADRIANA JOAQUIN (ELLSINORE) INR 1.09 0.90 - 1.20 ADRIANA JOAQUIN (ELLSINORE) Comment: Interpretive data Oral anticoagulant therapeutic ranges: Venous thromboembolism prophylaxis or treatment: 2.0-3.0 CARDIOLOGY Standard range: 2.0-3.0 High-intensity range: 2.5-3.5 Refer to indication-specific guidelines for appropriate target ranges for prosthetic heart valve replacement. Current interpretive data was last revised on 2019. Blood 09/27/2024 3:25 PM CDT 09/27/2024 3:27 PM CDT Narrative ADRIANA LUNA) - 09/27/2024 3:39 PM CDT Baseline prior to heparin initiation Timbo Norton MD LAB BLOOD ORDERABLES Final Resu lt Performing Organization Address City/[facility] Co de Phone Number ADRIANA LewisELLSINORE) 1 [facility] [place] [address] * LEFT HEART CATHETERIZATION WITH CORONARY ANGIOGRAPHY AND WITH AND WITHOUT LEFT VENTRICULOGRAM (09/27/2024 2:18 PM CDT) Anatomical Region Laterality Modality X-Ray Angiograph y 09/27/2024 Narrative 09/28/2024 9:32 AM CDT [employer]ate Job ID: [id number] Edevate Document ID: [id number] Dictated date/time: [id number] CARDIAC CATHETERIZATION REPORT A 53-year-old, history of [...] the patient was brought to the cardiac laborer landscape suite. He was prepped and draped in a sterile fashion. Conscious sedation was administered by the laborer landscape staff under my supervision. A total of 3 mg of Versed, 100 mcg of fentanyl and 50 mg of Benadryl were given in divided doses. See procedure log for further details. Total sedation time 23 minutes. A 6-Nigerian sheath was inserted into the right radial [...] ostial stenosis with calcifications. IMPRESSION 1. Severe [place] 3 vessel coronary artery disease involving disease [...] Timbo Norton MD Job ID/Internal Job ID: [id number] us Brien Flowers MD CV CARDIAC CATH PROCEDURES Fi nal Result * POCT glucose (09/27/2024 11:46 AM CDT) Glucose, POC 199 70 - 199 mg/dL Blood 09/27/2024 11:4 6 AM CDT 09/27/2024 11:46 AM CDT us Georgina Meyer MD LAB POCT ORDERABLES - DEVICE Fi nal Result Performing Organization Address City/State/[facility] Co de Phone Number ADRIANA [facility] [address] Department [place] [address] * TRANSTHORACIC ECHO (TTE) COMPLETE W DOPPLER/CF WO CONTRAST (09/27/2024 10:44 AM CDT) Anatomical Region Laterality Modality Ultrasound 09/27/2024 9:16 AM CDT Narrative 09/27/2024 12:00 PM CDT [address] [address] Echocardiogram Report Patient Name: ANTELMO TAY : 1970 Study Date: 09/27/2024 9:16:42 AM Gender: M 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 Location: [id number] Ref Provider: GEORGINA MEYER Height(Cm): 188 BSA: [...] Procedure Note Tracy Morfin MD - 09/27/[address] [address] Echocardiogram Report Patient Name: ANTELMO TAY : 1970 Study Date: 09/27/2024 9:16:42 AM Gender: M 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 Location: [place] [address] Ref Provider: GEORGINA MEYER Height(Cm): 188 BSA: [...] Tracy Morfin MD 09/27/2024 12:00:09 PM CDT us Georgina Meyer MD CV ECHO PROCEDURES Final Result * POCT glucose (09/27/2024 8:11 AM CDT) Glucose, POC 186 70 - 199 mg/dL Blood 09/27/2024 8:11 AM CDT 09/27/2024 8:11 AM CDT Georgina Meyer MD LAB POCT ORDERABLES - DEVICE Fi nal Result Performing Organization Address City/[facility]/ZIP Co de Phone Number ADRIANA JOAQUIN (ELLSINORE) 1 [facility] [email or web address] [place] [address] * eGFR (09/27/2024 4:09 AM CDT) eGFR [...] BLOOD ORDERABLES Final Resu lt ADRIANA JOAQUIN (RUTHANN) 1 [facility] [email or web address] [place] [address] * Differential, auto (09/27/2024 4:09 AM CDT) Neutrophil abs 4.8 1.5 - 6.5 K/cumm Imm gran abs 0.1 0.0 - 0.1 K/cumm [facility] (ELLSINORE) Lymphocyte abs 1.7 0.8 - 3.3 K/cumm [facility] (RUTHANN) [...] LAB BLOOD ORDERABLES Final Resu lt ADRIANA JEMAL (ELLSINORE) [address] Department [place] [address] * (ABNORMAL) CBC with auto differential (09/27/2024 [...] Final Resu lt [facility]RIANA [facility] (RUTHANN) 1 [facility] Department [place] [address] * Magnesium (09/27/2024 4:09 AM CDT) Pathologist [facility] Magnesium 1.8 1.4 - 2.5 mg/dL Blood 09/27/2024 4:09 AM CDT 09/27/2024 4:17 AM CDT us Georgina Meyer MD LAB BLOOD ORDERABLES Final Resu lt Performing Organization Address [facility] Co de Phone Number ADRIANA [facility] (RUTHANN) 1 [place] [address] * (ABNORMAL) Hemoglobin A1c (09/27/2024 4:09 AM CDT) Hgb A1C 7.7(H) 4.0 - 5.6 % Estimated Average Glucose 174 mg/dL ADRIANA JOAQUIN (RUTHANN) Comment: The ADA recommends reporting an estimated Average Glucose (eAG) with all Hemoglobin A1c results using the equation derived from a study of 507 normal and diabetic adults. Minority populations were underrepresented and children were not included. (Diabetes Care 31:9327-8150, 2008). The eAG is not equivalent to a fasting glucose. Blood 09/27/2024 4:09 AM CDT 09/27/2024 4:18 AM CDT Georgina Meyer MD LAB BLOOD ORDERABLES Final Resu lt Performing Organization Address [facility] de Phone Number ADRIANA [facility] (RUTHANN) 1 [place] [address] * (ABNORMAL) Lipid panel (09/27/2024 4:09 AM [...] on 2018. Triglycerides 276(H) <=149 mg/dL ADRIANA JOAQUIN (RUTHANN) Comment: Interpretive Data [...] NCEP Expert Panel. Circulation 2004;110:227 3. Alberto Sorto al. LANDEN Cardiol. 2020 November 15;5(5):540-548. doi: 10.1001/jamacardio.2020.0013 Current [...] MD LAB BLOOD ORDERABLES Final Resu lt [facility] (RUTHANN) 1 [facility] Department [place] [address] * (ABNORMAL) Basic metabolic panel (09/27/2024 4:09 AM CDT) Sodium 136 135 - 145 mmol/L Potassium, pl 4.0 3.3 - 4.9 mmol/L [facility] (RUTHANN) Chloride 98 97 - 110 mmol/L [facility] ([place]UTHANN) CO2 25 22 - 32 mmol/L [facility] ([place]UTHANN) Anion gap 14 2 - 15 mmol/L [facility] ([place]UTHANN) BUN 18 6 - 25 mg/dL [facility] (RUTHANN) Creatinine 0.69(L) 0.80 - 1.30 mg/dL [facility] (RUTHANN) Glucose 188 70 - 199 mg/dL [facility] (RUTHANN) Comment: Interpretive Data Fasting glucose [...] 9.4 8.5 - 10.3 mg/dL ADRIANA JOAQUIN (RUTHANN) Blood 09/27/2024 4:09 AM CDT 09/27/2024 4:17 AM CDT Georgina Meyer MD LAB BLOOD ORDERABLES Final Resu lt Performing Organization Address [facility]/ZIP Co de Phone Number ADRIANA JOAQUIN (ELLSINORE) [address] [facility] [place] [address] * (ABNORMAL) POCT glucose (09/27/2024 2:56 AM CDT) [facility] Signature Glucose, POC 203(H) 70 - 199 mg/dL Blood 09/27/2024 2:56 AM CDT 09/27/2024 2:56 AM CDT Georgina Meyer MD LAB POCT ORDERABLES - DEVICE Fi nal Result Performing Organization Address [facility] de Phone Number ADRIANA JOAQUIN (ELLSINORE) [address] [facility] [place] [address] * ECG 12 lead (09/26/2024 9:34 PM CDT) 09/26/2024 9:34 PM CDT Narrative [facility] [employer] - 09/27/2024 1:58 PM CDT Vent Rate: 79 bpm RR Interval: 757 msec NM Interval: 145 msec QRS Duration: 114 msec QT Interval: 381 msec QTC Interval: 415 msec P-R-T [place]: 55 - 71 - 67 degrees IMPRESSION: SINUS RHYTHM MODERATE INTRAVENTRICULAR CONDUCTION DELAY [110+ ms QRS DURATION] BORDERLINE ECG NO CHANGE FROM PREVIOUS TRACING NOTED Electronically Signed By: Timbo Norton MD Tyrese Chatman MD ECG ORDERABLES Final Result Performing Organization Address [facility] Co de Phone Number [facility] [employer] [facility] * (ABNORMAL) POCT glucose (09/26/2024 8:45 PM CDT) Glucose, POC 244(H) 70 - 199 mg/dL Blood 09/26/2024 8:45 PM CDT 09/26/2024 8:45 PM CDT Georgina Meyer MD LAB POCT ORDERABLES - DEVICE Fi nal Result Performing Organization Address City/[facility]/ZIP Co de Phone Number ADRIANA JOAQUIN (ELLSINORE) 1 [facility] [place] [address] * Troponin T high-sensitivity 6-hour (09/26/2024 5:09 PM CDT) [facility] Trop T hs 15 <=22 ng/L Comment: Interpretive Data For further hscTnT resources including the diagnostic algorithm and an aid in interpretation, copy and paste this link: https://nrl.testcatalog.org/show/hsTrop Current Interpretive Data last revised 2020. Trop T hs delta See Comment ng/L CE RNSAURABH JOAQUIN (ELLSINORE) Comment:Inappropriate collec tion time to report a delta. Trop T hs pct delta See Comment % CERMICHELLE JOAQUIN (ELLSINORE) Comment:Inappropriate collec tion time to report a delta. Trop T hs interp See Comment C ABI JOAQUIN (ELLSINORE) Comment:Inappropriate collec tion time to report a delta. Blood 09/26/2024 5:09 PM CDT 09/26/2024 5:27 PM CDT us Janay Barahona MD LAB BLOOD ORDERABLES Ashia l Result ADRIANA JOAQUIN (ELLSINORE) [address] [facility] [place] [address] * POCT glucose (09/26/2024 5:05 PM CDT) Glucose, POC 161 70 - 199 mg/dL Blood 09/26/2024 5:05 PM CDT 09/26/2024 5:05 PM CDT us Georgina Meyer MD LAB POCT ORDERABLES - DEVICE Fi nal Result ADRIANA JOAQUIN (ELLSINORE) 1 [facility] Department [place] [address] * CT Chest PE (CTA) Abdomen Pelvis [...] Brien Hood M.D. RB: OKSANA Report ID: [id number] Reading Location: [place] [address] Procedure Note Brien Hood MD - 09/26/2024 [...] Brien Hood M.D. RB: OKSANA Report ID: [id number] Reading Location: [place] [address] us Janay Barahona MD IMG CT PROCEDURES Final R esult * Troponin T high-sensitivity 2-hour (09/26/2024 12:11 PM CDT) Trop T hs 12 <=22 ng/L Comment: Interpretive Data For further hscTnT resources including the diagnostic algorithm and an aid in interpretation, copy and paste this link: https://nrl.testcatalog.org/show/hsTrop Current Interpretive Data last revised 2020. Trop T hs delta 1 ng/L [facility] ([place]UTHANN) Trop T hs interp Insignificant [facility] (ELLSINORE) Blood 09/26/2024 12:1 1 PM CDT 09/26/2024 12:16 PM CDT Janay Barahona MD LAB BLOOD ORDERABLES Ashia l Result [facility] (ELLSINORE) 1 [facility] [email or web address] [place] [address] * Magnesium (09/26/2024 12:11 PM CDT) Pathologist [facility] Magnesium 1.9 1.4 - 2.5 mg/dL Blood 09/26/2024 12:1 1 PM CDT 09/26/2024 12:16 PM CDT Janay Barahona MD LAB BLOOD ORDERABLES Ashia l Result [facility] (ELLSINORE) [address] [facility] [place] [address] * XR Chest 1 Vw Portable (if [...] Chele Osorio M.D. LB: HILDA Report ID: [id number] Reading Location: [id number] Procedure Note Chele Osorio MD - 09/26/2024 [...] right infrahilar region is new from 2015 andmay represent pneumonia or atelectasis/scarring. Correlation with symptoms recommended. THIS IS AN ELECTRONICALLY VERIFIED FINAL REPORT 09/26/2024 10:22 AM - Electronically signed by Chele Osorio M.D. LB: LB Report ID: [id number] Reading Location: [id number] Janay Barahona MD IMG XR PROCEDURES Final R esult * ECG 12 lead (09/26/2024 9:45 AM CDT) 09/26/2024 9:45 AM CDT Narrative [facility] - 09/26/2024 10:32 AM CDT Vent Rate: 69 bpm RR Interval: 864 msec NM Interval: 151 msec QRS Duration: 111 msec QT Interval: 379 msec QTC Interval: 398 msec P-R-T [place]: -5 - 62 - 66 degrees IMPRESSION: SINUS RHYTHM MODERATE INTRAVENTRICULAR CONDUCTION DELAY [110+ ms QRS DURATION] BORDERLINE ECG Electronically Signed By: Timbo Norton MD Janay Barahona MD ECG ORDERABLES Final Res ult [facility] [employer] [facility] * Troponin T high-sensitivity series (baseline, 2hr, 4hr, 6hr) (09/26/2024 9:44 AM CDT) Trop T hs 11 <=22 ng/L Comment: Interpretive Data For further hscTnT resources including the diagnostic algorithm and an aid in interpretation, copy and paste this link: https://nrl.testcatalog.org/show/hsTrop Current Interpretive Data last revised 2020. Blood 09/26/2024 9:44 AM CDT 09/26/2024 9:48 AM CDT us Janay Barahona MD LAB BLOOD ORDERABLES Ashia l Result ADRIANA JOAQUIN (ELLSINORE) 1 [facility] Department of Laboratories [place], [place] [id number] * eGFR (09/26/2024 9:44 AM CDT) eGFR [...] 9:44 AM CDT 09/26/2024 9:48 AM CDT us Janay Barahona MD LAB BLOOD ORDERABLES Ashia brown Result ADRIANA [facility] (ELLSINORE) 1 [facility] Department [place] [address] * Differential, auto (09/26/2024 9:44 AM CDT) [...] on 2017. Imm gran pct 1.1 % ADRIANA JOAQUIN (RUTHANN) Comment: Interpretive Data Percent cell count reference ranges are not reported, since discordance with absolute values may lead to misinterpretation of CBC data. Current Interpretive Data was last revised on 2017. Lymphocyte pct 24.8 % ALMA DELIA JOAQUIN (RUTHANN) Comment: Interpretive Data Percent cell count reference ranges are not reported, since discordance with absolute values may lead to misinterpretation of CBC data. Current Interpretive Data was last revised on 2017. Monocyte pct 6.2 % ADRIANA JOAQUIN (RUTHANN) Comment: Interpretive Data Percent cell count reference ranges are not reported, since discordance with absolute values may lead to misinterpretation of CBC data. Current Interpretive Data was last revised on 2017. Eosinophil pct 1.6 % ALMA DELIA JOAQUIN (RUTHANN) Comment: Interpretive Data Percent cell count reference ranges are not reported, since discordance with absolute values may lead to misinterpretation of CBC data. Current Interpretive Data was last revised on 2017. Basophil pct 0.4 % ADRIANA JOAQUIN (RUTHANN) Comment: Interpretive Data Percent cell count reference ranges are not reported, since discordance with absolute values may lead to misinterpretation of CBC data. Current Interpretive Data was last revised on 2017. Blood 09/26/2024 9:44 AM CDT 09/26/2024 9:48 AM CDT us Janay Barahona MD LAB BLOOD ORDERABLES Ashia brown Result ADRIANA JOAQUIN (RUTHANN) 1 [facility] Department [place] [address] * (ABNORMAL) CBC with auto differential (09/26/2024 9:44 AM CDT) WBC 7.5 3.8 - 9.9 K/cumm Hgb 15.6 13.0 - 17.5 g/dL [facility] (RUTHANN) Hct 47.3 38.9 - 50.3 % [facility] ([place]UTHANN) Plt 154 150 - 400 K/cumm [facility] ([place]UTHANN) MPV 8.4(L) 9.1 - 12.3 fL [facility] ([place]UTHANN) RBC 4.74 4.30 - 5.80 M/cumm [facility] ([place]UTHANN) MCV 99.8(H) 81.3 - 96.4 fL [facility] (RUTHANN) MCH 32.9 27.1 - 33.3 pg [facility] ([place]UTHANN) MCHC 33.0 32.3 - 35.7 g/dL [facility] ([place]UTHANN) RDW CV 13.9 11.1 - 14.9 % [facility] ([place]UTHANN) RDW SD 51.3(H) 35.7 - 48.1 fL [facility] ([place]UTHANN) NRBC abs 0.00 0.00 - 0.01 K/cumm [facility] Blood Venous blood specimen / Unknown 09/26/2024 9:44 AM CDT 09/26/2024 9:48 AM CDT us Janay Barahona MD LAB BLOOD ORDERABLES Ashia borwn Result [facility] ([place] 1 [facility] Department [place] [address] * (ABNORMAL) Comprehensive metabolic panel (09/26/2024 9:44 AM CDT) Sodium 135 135 - 145 mmol/L Potassium, pl 4.8 3.3 - 4.9 mmol/L [facility] (RUTHANN) Chloride 96(L) 97 - 110 mmol/L [facility] ([place]UTHANN) CO2 26 22 - 32 mmol/L [facility] ([place]UTHANN) Anion gap 13 2 - 15 mmol/L [facility] ([place]UTHANN) BUN 17 6 - 25 mg/dL [facility] ([place] Creatinine 0.87 0.80 - 1.30 mg/dL [facility] ([place]) Glucose 274(H) 70 - 199 mg/dL [facility] (RUTHANN) Comment: Interpretive Data Fasting glucose [...] 9:44 AM CDT 09/26/2024 9:48 AM CDT us Janay Barahona MD LAB BLOOD ORDERABLES Ashia brown Result [facility] (ELLSINORE) 1 [facility] Department [place] [address] * PSA screen (07/06/2018 6:23 AM RATE INSERTER) PSA-Total 0.39 ng/mL [facility] (RUTHANN) Comment: Interpretive Data AGE SEX REFERENCE INTERVAL 0 minutes-150 years Female None 0 minutes-49 years Male None 50-59 years Male 0-3.90 60-69 years Male 0-5.40 70-79 years Male 0-6.20 80-150 years Male 0-6.20 Current interpretive data last revised 2018. Testing performed by: [facility], [address] [place] [address]., [id number] Blood specimen (specimen) 07/06/2018 6:23 AM RATE INSERTER 07/06/2018 10:58 AM RATE INSERTER Narrative ADRIANA JOAQUIN (RUTHANN) - 07/06/2018 12:17 PM RATE INSERTER us Vernon Mary Paula MD LAB BLOOD ORDERABLES Final R esult ADRIANA JOAQUIN (ELLSINORE) 1 [facility] Department of Laboratories [place] [phone] from Last 3 Months or Most Recently Relevant to Health Maintenance Insurance [place] Advance Directives For more information, please contact: [phone] * Full Code (Latest Code Status on File) Date Activated Date Inactivated Comments 09/28/2024 11:19 AM 10/07/2024 5:58 PM * Full Code Date Activated Date Inactivated Comments 09/26/2024 2:12 PM 09/28/2024 4:55 AM Care Teams Water And Gas Helper Relationship Specialty Start Date End Date Vernon Paula MD PCP - General 11/29/16 Brien Flowers MD [address] [place] [id number] Consulting Physician Cardiovascular Disease 10/04/24
--- OUTSIDE RECORDS SUMMARY | 2024-10-29 09:36 | XMS_ITS | CONTINUITY OF CARE DOCUMENT ---
Author Name veronica martin Address Unknown Organization [facility] Address [address] [place] [address] Phone [phone] Care Team Providers Care Plant Operations Vice President Name Role Phone Valente HAMILTON, Roxana Unavailable [phone] NAVI HAMILTON, DEN F Unavailable NAVI HAMILTON, DEN F Unavailable PROBLEMS Condition Status Date Provider Notes TOBACCO ABUSE active Nadia Stahlschmidt HYPERCHOLESTEROLEMIA active Nadiaava Carey midt CAD-02/20 CAROTID NEG active ? Roxana Victor MD HTN-10/24 ECHO LVH EF 55 12/0 7 ECHO LVH EF 60 active ? Mamadou Reed RN STENT -01/20 LAD VISION active ? Roxana Victor MD CHEST PAIN- 06/23 NUC NEG active ? Roxana serna MD ENCOUNTERS Date Type Provider Location Encounter Diag nosis - In-person encounter Office Visit Roxana Victor MD [place] [facility] - In-person encounter Office Visit Roxana Victor MD [place] [facility] CAD-02/20 CAROTID NEGHTN-10/24 ECHO LVH EF 55 12/07 ECHO LVH EF 60STENT -01/20 LAD VISIONCHEST PAIN- 06/23 NUC NEG VITAL SIGNS Date Observation Value Provider blood pressure, diastolic, left arm 93 mm [Hg] [place] blood pressure, systolic, left arm 153 mm [Hg] Alexis [place]ac[place]alit blood pressure, diastolic, right arm 89 m m[Hg] [place] blood pressure, systolic, right arm 145 m m[Hg] Alexis [place] blood pressure, diastolic 89 mm[Hg] Birdie seph [place] blood pressure, systolic 145 mm[Hg] Amol eph [place] pulse rate 87 /min Alexis [place] oxygen saturation, oximetry 98 % Alexis [place] respiratory rate E&M 20 /min Alexis [place] weight E&M 292.38 [lb_av] Alexis [place] blood pressure, diastolic 88 mm[Hg] Birdie seph [place] blood pressure, systolic 134 mm[Hg] Amol eph [place] pulse rate 81 /min Alexis [place] oxygen saturation, oximetry 97 % Alexis [place] respiratory rate E&M 16 /min Alexis [place] weight E&M 287 [lb_av] Alexis [place] ALLERGIES Allergy Name Onset Date Reaction Criticality Status PCN High Criticality active HISTORY OF MEDICATION USE Medication Status Instructions Dates Provider Indications Com ments PRILOSEC 20 MG ORAL CAPSULE DELAYED RELEASE active ONE TAB. DAILY 3 Roxana Victor MD ASPIRIN 325 MG ORAL TABLET active one tab daily 3 Roxana Victor MD SIMVASTATIN 20 MG ORAL TABLET active ONCE DAILY 0 Birdie Nunez LISINOPRIL 10 MG ORAL TABLET active 1 tablet by mouth daily [place] NITROGLYCERIN 0.4MG SUBL (NITROGLYCERIN SUBL) completed SL PRN 0 - 9 Alexis [place] PLAVIX 75 MG ORAL TABLET completed ONE TAB. DAILY - 9 Alexis [place]ac[place]alit ATENOLOL 50 MG ORAL TABLET completed ONE TAB. DAILY - 9 Alexis [place]acolalit ADVICOR 500-20 MG ORAL TABLET EXTENDED RELEASE 24 HOUR completed ONE TAB. AT BEDTIME - 9 Alexis [place] ASPIRIN 325 MG ORAL TABLET completed one tab daily - 9 [place] SOCIAL HISTORY Date Observation Value Provider social history E&M Marital Statu s: Other L jesús with family/friends E thnicity: Roxana Victor MD drug use none Roxana Victor MD social history reviewed E&M reviewed Roxana Victor MD smoking/tobacco cess ation, patient education and counseling yes Roxana Victor MD social history E&M Marital Statu s: L jesús with family/friends E thnicity: Mamadou Reed RN social history reviewed E&M reviewed Mamadou Reed RN physical exercise, f requency, days per week no [employer] caffeine use, averag e drinks per day yes [employer] alcohol use, average drinks per day 1-3 drinks per day [employer] number of years as a smoker 10 years or m ore [employer] smoking status Smoker [employer] MENTAL STATUS Date Observation Value Provider assessment of judgme nt and insight E&M Alert and oriented to time, place and person. Mood and affect are normal. Roxana Victor MD assessment of judgme nt and insight E&M Alert and oriented to time, place and person. Mood and affect are normal. Mamadou Reed RN INSURANCE PROVIDERS Payer name Policy type / Coverage type [facility] [employer] party ID [facility] [id number] TREATMENT PLAN Date Name Performer yearly follow-up: T he following medications were removed from the medication list: Advicor 500-20 Mg Tb24 (Niacin-lovastatin) ..... One tab. at bedtime BP today: 134/88 Prior BP: / () Roxana Victor MD yearly follow-up: B P today: 134/88 Prior BP: / () N uclear Stress Findings: EF - 65%. E KG did not show ST segment depression in inferior or lateral leads to suggest ischemia. H ypertensive blood pressure response. F air exercise tolerance. T est was terminated due to shortness of breath and fatigue. N ormal myocardial perfusion imaging. [facility] (07/04/2007) C ardiac Cath Comments: Successful stenting of the proximal LAD with a 3.5 x 12mm Vision stent. [facility] (01/25/2006) C arotid Doppler/Duplex: No significant carotid stenosis bilaterally. B ilateral antegrade flow of the vertebral arteries. [facility] (02/16/2006) E chocardiogram: EF - 60%. M ild concentric LVH. N o clinically significant valvular abnormalities. [facility] (06/30/2007) Roxana Victor MD yearly follow-up: T he following medications were removed from the medication list: Atenolol 50 Mg Tabs (Atenolol) ..... One tab. daily Plavix 75 Mg Tabs (Clopidogrel bisulfate) ..... One tab. daily His updated medication list for this problem includes: Aspirin 325 Mg Tabs (Aspirin) ..... One tab daily Nitroglycerin Pt24 (Nitroglycerin pt24) ..... S.l prn Lisinopril 10 Mg Tabs (Lisinopril) ..... 1 tablet by mouth daily BP today: 134/88 Prior BP: / () N uclear Stress Findings: EF - 65%. E KG did not show ST segment depression in inferior or lateral leads to suggest ischemia. H ypertensive blood pressure response. F air exercise tolerance. T est was terminated due to shortness of breath and fatigue. N ormal myocardial perfusion imaging. [facility] (07/04/2007) C ardiac Cath Comments: Successful stenting of the proximal LAD with a 3.5 x 12mm Vision stent. [facility] (01/25/2006) C arotid Doppler/Duplex: No significant carotid stenosis bilaterally. B ilateral antegrade flow of the vertebral arteries. [facility] (02/16/2006) E chocardiogram: EF - 60%. M ild concentric LVH. N o clinically significant valvular abnormalities. [facility] (06/30/2007) Roxana Victor MD yearly follow-up: T he following medications were removed from the medication list: Advicor 500-20 Mg Tb24 (Niacin-lovastatin) ..... One tab. at bedtime Atenolol 50 Mg Tabs (Atenolol) ..... One tab. daily Plavix 75 Mg Tabs (Clopidogrel bisulfate) ..... One tab. daily His updated medication list for this problem includes: Aspirin 325 Mg Tabs (Aspirin) ..... One tab daily Nitroglycerin Pt24 (Nitroglycerin pt24) ..... S.l prn Lisinopril 10 Mg Tabs (Lisinopril) ..... 1 tablet by mouth daily BP today: 134/88 Prior BP: / () N uclear Stress Findings: EF - 65%. E KG did not show ST segment depression in inferior or lateral leads to suggest ischemia. H ypertensive blood pressure response. F air exercise tolerance. T est was terminated due to shortness of breath and fatigue. N ormal myocardial perfusion imaging. [facility] (07/04/2007) C ardiac Cath Comments: Successful stenting of the proximal LAD with a 3.5 x 12mm Vision stent. [facility] (01/25/2006) C arotid Doppler/Duplex: No significant carotid stenosis bilaterally. B ilateral antegrade flow of the vertebral arteries. [facility] (02/16/2006) Roxana Victor MD yearly follow-up: T he following medications were removed from the medication list: Atenolol 50 Mg Tabs (Atenolol) ..... One tab. daily His updated medication list for this problem includes: Aspirin 325 Mg Tabs (Aspirin) ..... One tab daily Lisinopril 10 Mg Tabs (Lisinopril) ..... 1 tablet by mouth daily BP today: 134/88 Roxana Victor MD yearly follow-up: T he following medications were removed from the medication list: Advicor 500-20 Mg Tb24 (Niacin-lovastatin) ..... One tab. at bedtime Atenolol 50 Mg Tabs (Atenolol) ..... One tab. daily Plavix 75 Mg Tabs (Clopidogrel bisulfate) ..... One tab. daily His updated medication list for this problem includes: Aspirin 325 Mg Tabs (Aspirin) ..... One tab daily Nitroglycerin Pt24 (Nitroglycerin pt24) ..... S.l prn Lisinopril 10 Mg Tabs (Lisinopril) ..... 1 tablet by mouth daily BP today: 134/88 Prior BP: / () N uclear Stress Findings: EF - 65%. E KG did not show ST segment depression in inferior or lateral leads to suggest ischemia. H ypertensive blood pressure response. F air exercise tolerance. T est was terminated due to shortness of breath and fatigue. N ormal myocardial perfusion imaging. [facility] (07/04/2007) C ardiac Cath Comments: Successful stenting of the proximal LAD with a 3.5 x 12mm Vision stent. [facility] (01/25/2006) C arotid Doppler/Duplex: No significant carotid stenosis bilaterally. B ilateral antegrade flow of the vertebral arteries. [facility] (02/16/2006) Roxana Victor MD Date Name COMPREHENSIVE METABO LIC PANEL W/EGFR THYROID PANEL WITH T SH, 3RD GENERATION LIPID PANEL Stress Test - Nuclea r Complete Echo
== END 2024-10-29 09:01 | disposition home or self-care (01) ==
PROVIDERS: PCP Family Medicine; Visit Provider Physician Assistant Medical
DX: G89.29 Other chronic pain (principal); M25.562 Pain in left knee; M25.571 Pain in right ankle and joints of right foot; M25.572 Pain in left ankle and joints of left foot; M54.2 Cervicalgia; M47.892 Other spondylosis, cervical region
CPT/HCPCS: 72040; 73562; 73610

== ENCOUNTER 2024-11-02 13:40 | Outpatient (CLI) | payer BC, SELFPAY ==
--- NOTE | ~2024-11-02 | MR_ITS ---
MRI of the brain Clinical History: Headache Technique: Axial and sagittal T1-weighted images were acquired. These were followed by axial T2-weigh martine, diffusion weighted, gradient, and FLAIR images. Following intravenous administration of 20 cc Mu ltiHance gadolinium, T1-weighted fat-sat imaging was performed in the axial and coronal planes. Findings: No acute infarct, intracranial hemorrhage, or mass lesion seen. A few tiny scattered foci o f hyperintense FLAIR signal present in the periventricular white matter bilaterally. Ventricles and subarachnoid spaces are unremarkable. Orbits are unremarkable. Paranasal sinuses and m astoid air cells are clear. Major intracranial flow voids are intact. Sagittal midline structures are intact. No abnormal postcontrast enhancement identified. IMPRESSION: Minimal chronic microvascular ischemic change, otherwise unremarkable exam. Reviewed, dictated and finalized at location M.
== END 2024-11-02 13:41 | disposition home or self-care (01) ==
LOC: MICIMG 13:40
PROVIDERS: PCP Family Medicine; Visit Provider Physician Assistant Medical
DX: R51.9 Headache, unspecified (principal); G89.29 Other chronic pain
CPT/HCPCS: 70553; A9577

== ENCOUNTER 2025-03-14 07:15 | Outpatient (RCR) | payer BC, SELFPAY | END 2025-03-20 13:26 | disposition home or self-care (01) | LOC: ANHCPREHAB 07:15 | PROVIDERS: PCP Family Medicine; Visit Provider Internal Medicine Cardiovascular Disease | DX: Z95.1 Presence of aortocoronary bypass graft (principal) | CPT/HCPCS: 93798 ==